=== PATIENT | male | born 1945 | race Caucasian/White ===

== ENCOUNTER → 2018-01-29 11:55 | Outpatient (CLI) | payer MEDICARE, OTHER, SELFPAY ==
--- NOTE | 2018-01-29 | DI.US.S_ITS ---
PROCEDURE: US ABD AORTA ANEURYSM SCREEN INDICATIONS: SCREENING TECHNIQUE: Real time scanning was performed of the aorta and iliac arteries, with image documentation. COMPARISON: None. FINDINGS: Aorta: Proximal aortic not well-seen. Mid-aorta measures 1.8 cm. Distal aortic diameter is 1.6 cm. Iliac arteries: Right common iliac artery measures 1.3 cm. Left common iliac artery measures 1.4 cm. IMPRESSION: No abdominal aortic or proximal common iliac artery aneurysm. Dictated by: Neto MACIAS Interpreted: Rosanna Ortiz MD on 01/29/2018 at 13:05 Approved by: Rosanna Ortiz M.D. on 01/29/2018 at 15:10
== END ==
PROVIDERS: PCP Family Medicine; Visit Provider Family Medicine
DX: Z13.6 Encounter for screening for cardiovascular disorders (principal)
CPT/HCPCS: 76706

== ENCOUNTER → 2022-01-25 08:42 | Outpatient (CLI) | payer MEDICARE, OTHER, SELFPAY ==
[2022-01-25 09:40] LABS: Add Manual Diff / Slide Review NO; Basophils Absolute Auto 0 /uL (0-100); Basophils Percent Auto 0.9 % (0-2); Eosinophils Absolute Auto 100 /uL (0-450); Eosinophils Percent Auto 1.9 % (2-4); Hematocrit 43.6 % (41-53); Hemoglobin 14.6 g/dL (13.5-17.5); Lymphocytes Absolute Auto 1300 /uL (1100-4500); Lymphocytes Percent Auto 25.3 % (25-40); Mean Corpuscular HGB Conc 33.5 % (30-36); Mean Corpuscular Hemoglobin 30.6 PG (26-34); Mean Corpuscular Volume 91.3 fL (80-100); Monocytes Absolute Auto 400 /uL (0-900); Monocytes Percent Auto 7.7 % (3-14); Neutrophils Absolute Auto 3200 /uL (1500-7000); Neutrophils Percent Auto 64.2 % (50-75); Platelet Count 230 X10^3/uL (150-400); Red Blood Cell Count 4.77 X10^6/uL (4.5-5.9); Red Cell Distribution Width 14.1 % (11.6-14.8)
[2022-01-25 10:27] LABS: Alanine Aminotransferase 28 IU/L (<50); Albumin Globulin Ratio 1.5 (1.0-2.8); Alkaline Phosphatase 43 U/L (38-126); Aspartate Aminotransferase 28 IU/L (17-59); BUN Creatinine Ratio 19.6 (6-22); Bilirubin Total 0.7 mg/dL (0.2-1.3); Blood Urea Nitrogen 19 mg/dL (9-20); Calcium 8.9 mg/dL (8.4-10.2); Carbon Dioxide 31 mmol/L (22-32); Chloride 103 mmol/L (98-107); Cholesterol 187 mg/dL (140-199); Estimated Glomerular Filt Rate > 60 mL/min (>60); Globulin 2.7 g/dL (1.7-4.1); Glucose 114 mg/dL (80-110); HDL Cholesterol 68 mg/dL (40-60); HEMOLYSIS < 15 (0-50); LDL Cholesterol Calculated 96 mg/dL (<100); Potassium 4.4 mmol/L (3.4-5.1); Sodium 139 mmol/L (137-145); Total Protein 6.7 g/dL (6.3-8.2); Triglycerides 115 mg/dL (35-150)
[2022-01-26 10:00] LABS: Creatinine Urine Random 141.4 mg/dL
[2022-01-26 10:05] LABS: Microalbumi Creatinin Ratio Ur 4.9 ug/mg CR (<30); Microalbumin Urine Random 0.7 mg/dL (0-1.6)
== END ==
PROVIDERS: PCP Family Medicine; Referring Provider Family Medicine; Visit Provider Family Medicine
DX: E78.5 Hyperlipidemia, unspecified (principal); I72.4 Aneurysm of artery of lower extremity; R03.0 Elevated blood-pressure reading, without diagnosis of hypertension; R19.09 Other intra-abdominal and pelvic swelling, mass and lump
CPT/HCPCS: 36415; 80053; 80061; 82043; 82570; 84443; 85025

== ENCOUNTER → 2023-04-14 08:13 | Outpatient (CLI) | payer MEDICARE, OTHER, SELFPAY ==
[2023-04-14 09:00] LABS: Add Manual Diff / Slide Review NO; Basophils Absolute Auto 100 /uL (0-100); Basophils Percent Auto 1.1 % (0-2); Eosinophils Absolute Auto 100 /uL (0-450); Eosinophils Percent Auto 2.9 % (2-4); Hematocrit 42.4 % (41-53); Hemoglobin 14.3 g/dL (13.5-17.5); Lymphocytes Absolute Auto 1600 /uL (1100-4500); Lymphocytes Percent Auto 34.6 % (25-40); Mean Corpuscular HGB Conc 33.8 % (30-36); Mean Corpuscular Hemoglobin 30.7 PG (26-34); Mean Corpuscular Volume 90.9 fL (80-100); Monocytes Absolute Auto 400 /uL (0-900); Monocytes Percent Auto 9.3 % (3-14); Neutrophils Absolute Auto 2400 /uL (1500-7000); Neutrophils Percent Auto 52.1 % (50-75); Platelet Count 196 X10^3/uL (150-400); Red Blood Cell Count 4.66 X10^6/uL (4.5-5.9); Red Cell Distribution Width 14.7 % (11.6-14.8); White Blood Cell Count 4.6 X10^3/uL (4.5-11.0)
[2023-04-14 09:11] LABS: Alanine Aminotransferase 26 IU/L (<50); Albumin 3.8 g/dL (3.5-5.0); Albumin Globulin Ratio 1.4 (1.0-2.8); Alkaline Phosphatase 84 U/L (38-126); Aspartate Aminotransferase 26 IU/L (17-59); BUN Creatinine Ratio 16.7 (6-22); Bilirubin Total 0.7 mg/dL (0.2-1.3); Blood Urea Nitrogen 17 mg/dL (9-20); Calcium 8.9 mg/dL (8.4-10.2); Carbon Dioxide 31 mmol/L (22-32); Chloride 101 mmol/L (98-107); Cholesterol 189 mg/dL (140-199); Estimated Glomerular Filt Rate > 60 mL/min (>60); Globulin 2.7 g/dL (1.7-4.1); Glucose 115 mg/dL (80-110); HDL Cholesterol 80 mg/dL (40-60); HEMOLYSIS < 15 (0-50); LDL Cholesterol Calculated 92 mg/dL (<100); Potassium 4.2 mmol/L (3.4-5.1); Sodium 136 mmol/L (137-145); Total Protein 6.5 g/dL (6.3-8.2); Triglycerides 85 mg/dL (35-150)
[2023-04-14 10:17] LABS: Prostate Specific Antigen Scrn 252 ng/mL (0.1-4.0)
== END ==
PROVIDERS: PCP Family Medicine; Referring Provider Family Medicine; Visit Provider Family Medicine
DX: E78.5 Hyperlipidemia, unspecified (principal); Z12.5 Encounter for screening for malignant neoplasm of prostate; I72.4 Aneurysm of artery of lower extremity; R03.0 Elevated blood-pressure reading, without diagnosis of hypertension; R19.09 Other intra-abdominal and pelvic swelling, mass and lump
CPT/HCPCS: 36415; 80053; 80061; 84443; 85025; G0103

== ENCOUNTER → 2023-04-15 12:51 | Outpatient (CLI) | payer MEDICARE, OTHER, SELFPAY ==
--- NOTE | 2023-04-15 12:53 | DI.CT.S_ITS ---
PROCEDURE: CT PELVIS W CON INDICATIONS: right groin mass TECHNIQUE: After the administration of intravenous contrast, 5 mm thick sections acquired from the iliac crests to the symphysis. 5 mm coronal and sagittal reformats were acquired. For radiation dose reduction, the following was used: automated exposure control, adjustment of mA and/or kV according to patient size. COMPARISON: None. FINDINGS: Image quality: Good Lower abdomen: No bowel obstruction or pathologic ascites. Bladder: Unremarkable. Mildly trabeculated, which may be due to chronic obstruction. Reproductive organs: Right prostate mass with extramural extension measures about 3.7 x 3 centimeters. There may be seminal vesicle involvement. Extent of prostate disease is probably larger than suggested on CT, which is an insensitive modality. Rectum: Unremarkable Vessels and lymph nodes: Pelvic and retroperitoneal adenopathy, for example aortocaval node on axial image 3 measures 1.2 centimeters on short axis. Right common iliac node (2/13) measures 2.3 centimeters in short axis. No aneurysmal vessel identified. There also abnormal left pelvic lymph nodes. Pelvic wall: Small bilateral fat containing inguinal hernias, larger on the right, with neck measuring about 1.4 centimeters, containing a small bowel loop, without upstream obstruction. Bones: Small sclerotic bone lesions are present, for example in the left iliac (2/10) and right iliac (2/7). IMPRESSION: The right groin mass probably corresponds to a right inguinal hernia containing fat in the small bowel loops, without upstream obstruction. There is also a smaller left inguinal hernia. Prostate cancer with archie metastases seen in the pelvis and retroperitoneum and suspected bone metastases. Consider dedicated follow-up oncologic imaging. Dictated by: Rios Maguire M.D. on 04/15/2023 at 15:44 Approved by: Rios Maguire M.D. on 04/15/2023 at 15:50
== END ==
PROVIDERS: PCP Family Medicine; Referring Provider Family Medicine; Visit Provider Family Medicine
DX: C61 Malignant neoplasm of prostate (principal); C77.5 Secondary and unspecified malignant neoplasm of intrapelvic lymph nodes; M89.9 Disorder of bone, unspecified; K40.20 Bilateral inguinal hernia, without obstruction or gangrene, not specified as recurrent; R19.09 Other intra-abdominal and pelvic swelling, mass and lump
CPT/HCPCS: 72193; Q9967

== ENCOUNTER → 2023-04-25 10:39 | Outpatient (CLI) | payer MEDICARE, OTHER, SELFPAY ==
--- NOTE | 2023-04-25 10:40 | DI.NM.S_ITS ---
PROCEDURE: NM BONE SCAN WHOLE BODY RADIOPHARMACEUTICAL: 21.0 mCi Tc-99m MDP IV. INDICATIONS: CANCER TECHNIQUE: Delayed whole-body scintigrams were obtained approximately 3-4 hours after intravenous injection of radiotracer. Anterior and posterior views were acquired from vertex to feet. Additional left and right oblique views of the pelvis were obtained. COMPARISON: [facility], CT, CT PELVIS W CON, 04/15/2023, 13:06. [facility], CT, CT CHEST ABDOMEN W CON, 04/25/2023, 11:59. FINDINGS: There are multiple foci of abnormal uptake involving the cervical spine (T6 (and thoracic spine (T4, T8, T9, T10 T11 and T12), sacrum, sternum, iliac bones bilat 3, left pubis, the 1st, 5th, 7th, 8th and 12 ribs, distal right clavicle, right scapula, and left femur, consistent with osseous metastases. IMPRESSION: Multiple foci of osseous metastatic disease. Dictated by: Pierre Sethi M.D. on 04/25/2023 at 15:58 Approved by: Pierre Sethi M.D. on 04/25/2023 at 16:10
--- NOTE | 2023-04-25 10:40 | DI.CT.S_ITS ---
PROCEDURE: CT CHEST ABDOMEN W CON INDICATIONS: cancer TECHNIQUE: After the administration of oral contrast and intravenous contrast, 5 mm thick sections acquired from the lung apices to the iliac crests. 5 mm coronal and sagittal reformats were performed, with additional 7 mm coronal MIP reformats through the lungs. For radiation dose reduction, the following was used: automated exposure control, adjustment of mA and/or kV according to patient size. COMPARISON: [facility], CT, CT FIGUEROA, 02/05/2018, 13:06. [facility], CT, CT PELVIS W CON, 04/15/2023, 13:06. FINDINGS: Image quality: Excellent. CHEST: Lungs and pleura: No mass or significant pulmonary nodules. No acute air space opacities. No pleural effusions or pneumothorax. Central and peripheral airways are patent and normal in caliber. Mediastinum: Heart size is normal. No pericardial effusion. Small mediastinal lymph nodes, (4/37). Left supraclavicular node measuring 1.1 cm, (2/10). Small retrocrural nodes. Thoracic aorta and central pulmonary arteries are normal in size. Esophagus is normal in caliber. No hiatal hernia. Chest wall: No axillary or supraclavicular adenopathy by size criteria. Thyroid gland is unremarkable. ABDOMEN: Solid organs: Liver is normal in size and enhancement. Gallbladder is unremarkable. Biliary system is non dilated. Pancreas enhances normally. Spleen is normal in size and enhancement. No adrenal nodules. Kidneys are normal in size and enhancement, without hydronephrosis. Peritoneum and bowel: Bowel loops demonstrate normal wall thickness and caliber. No free fluid or air. Nodes and vessels: Retroperitoneal adenopathy. For example: Left periaortic the level of the kidneys measuring 1.7 cm, (2/75). Intra-aortic caval node measuring 1.4 cm, (2/81). Aorta and inferior vena cava are normal in caliber. Circumferential calcified atherosclerotic plaque. Bones: Several subtle sclerotic foci. For example: T4, (5/42). T8, (5/43). T11, 5/43). T12, (5/46). No vertebral body compression fractures. Schmorl's nodes. Miscellaneous: No ventral hernias. IMPRESSION: 1. Enlarged left supraclavicular node concerning for metastatic disease. Suspicious small mediastinal lymph nodes. 2. Metastatic retroperitoneal adenopathy. 3. Multiple sclerotic osseous foci most consistent with metastatic disease. Please see pending bone scan. Please see separately dictated recent CT pelvis. Dictated by: Ankit De La Paz M.D. on 04/25/2023 at 13:58 Approved by: Ankit De La Paz M.D. on 04/25/2023 at 14:12
== END ==
PROVIDERS: PCP Family Medicine; Referring Provider Specialist; Visit Provider Specialist
DX: C61 Malignant neoplasm of prostate (principal); C79.51 Secondary malignant neoplasm of bone; C77.2 Secondary and unspecified malignant neoplasm of intra-abdominal lymph nodes; R59.0 Localized enlarged lymph nodes
CPT/HCPCS: 71260; 74160; 78306; A9503; Q9967

== ENCOUNTER → 2023-04-28 14:43 | Outpatient (CLI) | payer MEDICARE, OTHER, SELFPAY ==
--- NOTE | 2023-04-28 | DI.RAD.S_ITS ---
Bone Density Report Name: FAY RENTERIA Age: 78 Sex: Male Ethnicity: White Date of : 1945 Indication: screening for osteoporosis; Referring Provider: GAL ERICKSON Study: Bone densitometry was performed. Exam Date: April 28, 2023 Accession number: [id number] Bone Density: Region BMD T-score Z-score Classification AP Spine(L1, L2) 1.477 4.5 5.0 Normal Femoral Neck (Left) 0.833 -0.1 0.8 Normal Total Hip (Left) 1.054 0.9 1.2 Normal Femoral Neck (Right) 0.824 -0.2 0.7 Normal Total Hip (Right) 1.013 0.6 0.9 Normal Total Hip Mean 1.033 0.8 1.1 Normal World Health Organization criteria for BMD impression classify patients as: Normal (T-score at or above -1.0), Osteopenia (T-score between -1.0 and -2.5), or Osteoporosis (T-score at or below -2.5). 10-year Fracture Risk: FRAX not reported because: All T-scores for Spine Total, Hip Total, Femoral Neck at or above -1.0 Impression: The patient has normal bone mass. Discussion: BONE DENSITY IS ABOVE THE MINIMUM DESIRABLE LEVEL AT ALL SKELETAL SITES TESTED. This patient's bone mineral density is above the minimum desirable level (T-score -1.0 or better) at all sites measured. The patient should follow a healthful lifestyle (good nutrition with adequate calcium and vitamin D, and appropriate weight-bearing exercise). Follow-Up: Consider repeating this study in 5 years or sooner if there is some new clinical indication. Reported by: WILSON ZENG M.D. on 04/28/2023 3:13:00 PM.
== END ==
PROVIDERS: PCP Family Medicine; Referring Provider Specialist; Visit Provider Specialist
DX: Z13.820 Encounter for screening for osteoporosis (principal); C61 Malignant neoplasm of prostate; M06.9 Rheumatoid arthritis, unspecified
CPT/HCPCS: 77080

== ENCOUNTER → 2023-06-05 07:49 | Outpatient (CLI) | payer MEDICARE, OTHER, SELFPAY ==
[2023-06-05 09:10] LABS: Prostate Specific Antigen 4.86 ng/mL (0.10-4.00)
== END ==
PROVIDERS: PCP Family Medicine; Referring Provider Specialist; Visit Provider Specialist
DX: R97.20 Elevated prostate specific antigen [PSA] (principal)
CPT/HCPCS: 36415; 84153

== ENCOUNTER → 2023-07-11 07:31 | Outpatient (CLI) | payer MEDICARE, OTHER, SELFPAY ==
[2023-07-11 08:42] LABS: Add Manual Diff / Slide Review NO; Basophils Absolute Auto 100 /uL (0-100); Eosinophils Absolute Auto 100 /uL (0-450); Eosinophils Percent Auto 2.5 % (2-4); Hematocrit 39.8 % (41-53); Hemoglobin 13.5 g/dL (13.5-17.5); Lymphocytes Absolute Auto 2400 /uL (1100-4500); Mean Corpuscular HGB Conc 33.9 % (30-36); Mean Corpuscular Hemoglobin 30.1 PG (26-34); Mean Corpuscular Volume 88.7 fL (80-100); Monocytes Absolute Auto 400 /uL (0-900); Monocytes Percent Auto 8.3 % (3-14); Neutrophils Absolute Auto 2300 /uL (1500-7000); Neutrophils Percent Auto 43.2 % (50-75); Platelet Count 174 X10^3/uL (150-400); Red Blood Cell Count 4.48 X10^6/uL (4.5-5.9); White Blood Cell Count 5.3 X10^3/uL (4.5-11.0)
[2023-07-11 08:51] LABS: Alanine Aminotransferase 29 IU/L (<50); Albumin 3.8 g/dL (3.5-5.0); Albumin Globulin Ratio 1.3 (1.0-2.8); Alkaline Phosphatase 44 U/L (38-126); Aspartate Aminotransferase 26 IU/L (17-59); Bilirubin Total 0.6 mg/dL (0.2-1.3); Blood Urea Nitrogen 20 mg/dL (9-20); Calcium 9.5 mg/dL (8.4-10.2); Carbon Dioxide 30 mmol/L (22-32); Chloride 101 mmol/L (98-107); Estimated Glomerular Filt Rate > 60 mL/min (>60); Globulin 2.9 g/dL (1.7-4.1); Glucose 99 mg/dL (80-110); HEMOLYSIS < 15 (0-50); Sodium 139 mmol/L (137-145); Total Protein 6.7 g/dL (6.3-8.2)
== END ==
PROVIDERS: PCP Family Medicine; Referring Provider Family Medicine; Visit Provider Family Medicine
DX: E78.5 Hyperlipidemia, unspecified (principal); C61 Malignant neoplasm of prostate; C79.51 Secondary malignant neoplasm of bone; R97.20 Elevated prostate specific antigen [PSA]; Z00.00 Encounter for general adult medical examination without abnormal findings
CPT/HCPCS: 36415; 80053; 85025

== ENCOUNTER → 2023-09-01 12:18 | Outpatient (CLI) | payer MEDICARE, OTHER, SELFPAY ==
[2023-09-01 14:45] LABS: Add Manual Diff / Slide Review NO; Basophils Absolute Auto 100 /uL (0-100); Basophils Percent Auto 1.2 % (0-2); Eosinophils Absolute Auto 400 /uL (0-450); Eosinophils Percent Auto 6.4 % (2-4); Hematocrit 39.2 % (41-53); Hemoglobin 13.3 g/dL (13.5-17.5); Lymphocytes Absolute Auto 1500 /uL (1100-4500); Mean Corpuscular HGB Conc 33.8 % (30-36); Mean Corpuscular Volume 91.7 fL (80-100); Monocytes Absolute Auto 400 /uL (0-900); Monocytes Percent Auto 7.6 % (3-14); Neutrophils Absolute Auto 3400 /uL (1500-7000); Neutrophils Percent Auto 58.8 % (50-75); Platelet Count 175 X10^3/uL (150-400); Red Blood Cell Count 4.28 X10^6/uL (4.5-5.9); Red Cell Distribution Width 14.4 % (11.6-14.8); White Blood Cell Count 5.7 X10^3/uL (4.5-11.0)
[2023-09-01 16:55] LABS: HEMOLYSIS < 15 (0-50)
[2023-09-01 17:03] LABS: Alanine Aminotransferase 66 IU/L (<50); Albumin 3.7 g/dL (3.5-5.0); Albumin Globulin Ratio 1.5 (1.0-2.8); Alkaline Phosphatase 57 U/L (38-126); Aspartate Aminotransferase 46 IU/L (17-59); Bilirubin Total 0.7 mg/dL (0.2-1.3); Blood Urea Nitrogen 17 mg/dL (9-20); Calcium 9.1 mg/dL (8.4-10.2); Carbon Dioxide 29 mmol/L (22-32); Chloride 102 mmol/L (98-107); Estimated Glomerular Filt Rate > 60 mL/min (>60); Globulin 2.5 g/dL (1.7-4.1); Glucose 97 mg/dL (80-110); Potassium 4.3 mmol/L (3.4-5.1); Sodium 137 mmol/L (137-145); Total Protein 6.2 g/dL (6.3-8.2)
[2023-09-01 21:19] LABS: Prostate Specific Antigen 0.236 ng/mL (0.10-4.00)
== END ==
PROVIDERS: PCP Family Medicine; Referring Provider Internal Medicine Medical Oncology; Visit Provider Internal Medicine Medical Oncology
DX: C61 Malignant neoplasm of prostate (principal)
CPT/HCPCS: 36415; 80053; 84153; 85025

== ENCOUNTER → 2024-01-07 11:26 | Outpatient (CLI) | payer MEDICARE, OTHER, SELFPAY ==
[2024-01-07 12:17] LABS: Add Manual Diff / Slide Review NO; Basophils Absolute Auto 0 /uL (0-100); Basophils Percent Auto 0.7 % (0-2); Eosinophils Absolute Auto 100 /uL (0-450); Hematocrit 40.7 % (41-53); Hemoglobin 13.7 g/dL (13.5-17.5); Lymphocytes Absolute Auto 1100 /uL (1100-4500); Lymphocytes Percent Auto 16.9 % (25-40); Mean Corpuscular HGB Conc 33.7 % (30-36); Mean Corpuscular Volume 91.8 fL (80-100); Monocytes Absolute Auto 300 /uL (0-900); Monocytes Percent Auto 4.6 % (3-14); Neutrophils Absolute Auto 5000 /uL (1500-7000); Neutrophils Percent Auto 76.8 % (50-75); Platelet Count 163 X10^3/uL (150-400); Red Blood Cell Count 4.44 X10^6/uL (4.5-5.9); Red Cell Distribution Width 14.2 % (11.6-14.8); White Blood Cell Count 6.5 X10^3/uL (4.5-11.0)
[2024-01-07 12:42] LABS: Hemoglobin A1C% w Est Avg Glu 6.2 % (4.0-6.0)
[2024-01-07 12:45] LABS: Alanine Aminotransferase 24 IU/L (<50); Albumin 3.8 g/dL (3.5-5.0); Albumin Globulin Ratio 1.6 (1.0-2.8); Alkaline Phosphatase 56 U/L (38-126); Aspartate Aminotransferase 26 IU/L (17-59); BUN Creatinine Ratio 29.3 (6-22); Bilirubin Total 0.8 mg/dL (0.2-1.3); Blood Urea Nitrogen 24 mg/dL (9-20); Calcium 9.4 mg/dL (8.4-10.2); Carbon Dioxide 30 mmol/L (22-32); Chloride 104 mmol/L (98-107); Cholesterol 187 mg/dL (140-199); Estimated Glomerular Filt Rate > 60 mL/min (>60); Globulin 2.4 g/dL (1.7-4.1); Glucose 110 mg/dL (80-110); HDL Cholesterol 70 mg/dL (40-60); HEMOLYSIS < 15 (0-50); LDL Cholesterol Calculated 67 mg/dL (<100); Potassium 4.5 mmol/L (3.4-5.1); Sodium 139 mmol/L (137-145); Total Protein 6.2 g/dL (6.3-8.2); Triglycerides 252 mg/dL (35-150)
[2024-01-07 16:24] LABS: Creatinine Urine Random 117.1 mg/dL
[2024-01-07 16:35] LABS: Microalbumin Urine Random < 0.6 mg/dL (0-1.6)
== END ==
LOC: LAB 11:26
PROVIDERS: PCP Family Medicine; Referring Provider Family Medicine; Visit Provider Family Medicine
DX: E78.5 Hyperlipidemia, unspecified (principal); C61 Malignant neoplasm of prostate; C77.5 Secondary and unspecified malignant neoplasm of intrapelvic lymph nodes; C76.51 Malignant neoplasm of right lower limb; R03.0 Elevated blood-pressure reading, without diagnosis of hypertension
CPT/HCPCS: 36415; 80053; 80061; 82043; 82570; 83036; 84443; 85025

== ENCOUNTER 2024-05-12 11:25 | Emergency (ER) | payer MEDICARE, OTHER, SELFPAY ==
[2024-05-12] VITALS (14 sets, daily range): BP systolic 172–199; BP diastolic 80–96; PULSE 51–69; RESP 14–17; TEMP 36.2; O2SAT 98–100; BMI 25.4
--- NOTE | 2024-05-12 12:02 | ED_ITS ---
HPI - General Adult General Chief complaint: Urogenital-Male Stated complaint: kidney pain, poss kidney infection, sent by pcp Time Seen by Provider: 05/12/24 12:00 Source: patient History of Present Illness HPI narrative: 79-year-old gentleman with a history of hypertension, hyperlipidemia, prostate cancer metastatic, on abiraterone presents complaining of 4 days of low back/flank pain. He states 5 days ago he noticed some urinary frequency because of this he has dramatically cut down on oral intake including liquids. 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 It has responded to Alleve and icy hot. He notes that he is having difficulty going up and down stairs because he feels that his legs are weaker not necessarily because he is having increased pain. He notes that he has not had a bowel movement for 2 days and the last was fairly constipated. This correlates with the self-imposed limits on fluids and food due to the urinary frequency. He describes some mild nausea, no overt vomiting, no chest pain or palpitations Related Data Home Medications Medication Instructions Recorded Confirmed Lactobacillus acidophilus 2 tab PO QDAY ##0 04/15/17 03/16/24 [RED YEAST DYE] 600 mg PO QDAY ##0 04/15/17 03/16/24 [UBIQUINOL] 1 cap PO QDAY ##0 04/15/17 03/16/24 multivitamin (Multiple Vitamins 1 tab PO QDAY ##0 04/15/17 03/16/24 tablet) abiraterone 250 mg tablet 1,000 mg PO DAILY 12/30/23 03/16/24 prednisone 5 mg tablet 5 mg PO DAILY 12/30/23 03/16/24 leuprolide 3.75 mg intramuscular 3.75 mg IM .Q3mos 03/16/24 03/16/24 syringe kit (Lupron Depot) Previous Rx's Medication Instructions Recorded losartan 100 mg tablet 100 mg PO DAILY #90 tabs 12/30/23 Allergies Allergy/AdvReac Type Severity Reaction Status Date / Time No Known Drug Allergies Allergy Verified 05/12/24 12:09 Review of Systems Review of Systems Narrative: Pertinent positive and negative findings as per HPI Patient History Medical History Malignant neoplasm of prostate metastatic to intrapelvic lymph node Prostate cancer metastatic to multiple sites Hx of radiation therapy History of skin cancer Bilateral inguinal hernia Hyperlipidemia Surgical History H/O vasectomy Social History marital status: number of children: 3 Smoking Status: Former smoker Tobacco: How many years used: 15 alcohol intake: current Type(s) of exercise: walking frequency: daily Smoking Status: Former smoker tobacco type: cigarettes alcohol intake frequency: 0-2 drinks per day Substance Use Type: does not use Exam Initial Vital Signs Initial Vital Signs: Vital Signs Temperature 97.2 F L 05/12/24 11:46 Pulse Rate 60 05/12/24 11:46 Respiratory Rate 17 05/12/24 11:46 Blood Pressure 197/92 H 05/12/24 11:46 Pulse Oximetry 98 05/12/24 11:46 Oxygen Delivery Method Room Air 05/12/24 11:46 General: Healthy appearing, in no acute distress. Able to give a complete and coherent history. Well-nourished well-developed HEENT: Moist mucous membranes, normal sclera with reactive pupils, Respiratory: Lungs are clear to auscultation, no wheezing no rales no rhonchi. Full and symmetrical air movement Cardiac: Regular rate and rhythm no murmurs no bruits Abdomen: Soft, nontender, good bowel tones, mild left flank pain. No skin changes. Spine and pelvis: No midline tenderness, there is some tenderness just above the posterior iliac crest on the left side Neurologic: Grossly neurologically intact with no obvious asymmetries or abnormalities Extremities: No trauma, well perfused Psych: Cooperative, appropriate insight and affect Course Orders Ordered: ED Orders 05/12/24 12:23 CT abdomen pelvis w con Stat 05/12/24 12:37 Complete Blood Count AUTO DIFF Stat Comprehensive Metabolic Panel Stat Discontinued Medications Sodium Chloride (Normal Saline 0.9%) 1,000 mls @ 1,000 mls/hr IV BOLUS ONE Stop: 05/12/24 13:22 Last Infusion: 05/12/24 13:20 Dose: Infused Documented By: Admin: 05/12/24 12:44 Dose: 1,000 mls/hr Documented By: ARMAND Vital Signs Vital signs: Vital Signs - 8 hr 05/12/24 11:46 05/12/24 12:40 05/12/24 12:41 Temperature 97.2 F L Pulse Rate 60 60 60 Respiratory Rate 17 Blood Pressure 197/92 H Pulse Oximetry 98 100 99 Oxygen Delivery Method Room Air 05/12/24 12:41 05/12/24 12:45 05/12/24 12:45 Temperature Pulse Rate 57 L Respiratory Rate Blood Pressure 199/84 H 175/80 H Pulse Oximetry 100 Oxygen Delivery Method 05/12/24 13:00 05/12/24 13:00 05/12/24 13:30 Temperature Pulse Rate 55 L 69 Respiratory Rate Blood Pressure 172/83 H Pulse Oximetry 99 99 Oxygen Delivery Method 05/12/24 13:30 05/12/24 14:00 05/12/24 14:30 Temperature Pulse Rate 51 L 56 L Respiratory Rate Blood Pressure 173/96 H Pulse Oximetry 100 99 Oxygen Delivery Method Medical Decision Making Lab Data 05/12/24 12:37 05/12/24 12:37 Labs: Lab Results 05/12/24 Range/Units 12:37 WBC 6.4 (4.5-11.0) X10^3/uL RBC 4.37 L (4.5-5.9) X10^6/uL Hgb 13.2 L (13.5-17.5) g/dL Hct 39.8 L (41-53) % MCV 91.2 (80-100) fL MCH 30.2 (26-34) PG MCHC 33.1 (30-36) % RDW 14.1 (11.6-14.8) % Plt Count 179 (150-400) X10^3/uL Neut % (Auto) 61.3 (50-75) % Lymph % (Auto) 26.1 (25-40) % [place] % (Auto) 8.8 (3-14) % Eos % (Auto) 2.8 (2-4) % Baso % (Auto) 1.0 (0-2) % Neut # (Auto) 3900 (0312-6703) /uL Lymph # (Auto) 1700 (9848-7819) /uL [place] # (Auto) 600 (0-900) /uL Eos # (Auto) 200 (0-450) /uL Baso # (Auto) 100 (0-100) /uL Sodium 137 (137-145) mmol/L Potassium 4.0 (3.4-5.1) mmol/L Chloride 105 (98-107) mmol/L Carbon Dioxide 27 (22-32) mmol/L BUN 25 H (9-20) mg/dL Creatinine 0.88 (0.66-1.25) mg/dL Estimated GFR > 60 (>60) mL/min BUN/Creatinine Ratio 28.4 H (6-22) Glucose 102 (80-110) mg/dL Calcium 9.2 (8.4-10.2) mg/dL Total Bilirubin 0.7 (0.2-1.3) mg/dL AST 23 (17-59) IU/L ALT 18 (<50) IU/L Alkaline Phosphatase 58 (38-126) U/L Total Protein 6.3 (6.3-8.2) g/dL Albumin 3.7 (3.5-5.0) g/dL Globulin 2.6 (1.7-4.1) g/dL Albumin/Globulin Ratio 1.4 (1.0-2.8) Urine Dip Bedside Urine Glucose Negative Bedside Urine Bilirubin - Negative Bedside Urine Ketone - Negative Urine Specific [place] 1.030 Bedside Urine Occult Blood - Negative Bedside Urine pH 6.0 Bedside Urine Protein - Negative Bedside Urine Urobilinogen - Negative Bedside Urine Nitrite - Negative Bedside Urine Leukocytes - Negative Esterase Point of care testing: Urine Dip Bedside Urine Glucose Negative Bedside Urine Bilirubin - Negative Bedside Urine Ketone - Negative Urine Specific [place] 1.030 Bedside Urine Occult Blood - Negative Bedside Urine pH 6.0 Bedside Urine Protein - Negative Bedside Urine Urobilinogen - Negative Bedside Urine Nitrite - Negative Bedside Urine Leukocytes - Negative Esterase Imaging Data CT scan - abdomen/pelvis: Radiologist's Impression: PROCEDURE: CT ABDOMEN PELVIS W CON INDICATIONS: L flank/post iliac crest/lumbar pain TECHNIQUE: After the administration of intravenous contrast, axial sections acquired from the lung bases to the pubic symphysis. Coronal and sagittal reformats were performed. For radiation dose reduction, the following was used: automated exposure control, adjustment of mA and/or kV according to patient size. COMPARISON: None. FINDINGS: Image quality: Diagnostic. Lower Chest: Annular calcification of mitral valve, with cardiomegaly. ABDOMEN: Liver: No solid mass. Gallbladder: Gallbladder sludge versus small stones. No wall thickening or pericholecystic edema to suggest acute cholecystitis. Biliary ducts: No biliary dilation. Pancreas: No ductal dilation. Spleen: Size is within normal limits. Adrenal Glands: No adrenal nodules. Kidneys and Ureters: No hydronephrosis. No solid mass. No complex renal cystic lesion which requires follow up. Stomach and Bowel: Normal colonic caliber, without significant wall thickening. Normal appendix. Peritoneum: No abnormal intraperitoneal fluid. No free air. Ventral Wall: No significant ventral hernia. Abdominal Nodes: No retroperitoneal or mesenteric adenopathy by size criteria. Vessels: Aorta and inferior vena cava are normal in size. PELVIS: Pelvic Organs: Calcifications at the base of the penis. Bladder: Multiple punctate bladder calcifications are present. Pelvic Nodes: No enlarged lymph nodes. Miscellaneous: Small left inguinal hernia containing fat. Bones: No aggressive osseous abnormality. Degenerative disc disease of the lumbar spine. Grade 1 anterolisthesis of L4 on L5 secondary to facet arthrosis. IMPRESSION: Multiple punctate bladder stones. Calcifications at the base of the penis, which may indicate Peyronie's disease. Dictated by: Hunter Ro M.D. on 05/12/2024 at 14:55 MDM Narrative Medical decision making narrative: CC: Left flank/low back pain Complicating co-morbidities: Recent diagnosis of metastatic prostate cancer, hypertension Data collected from: patient Medical records reviewed: Primary care notes from December are reviewed Differential considered: Spontaneous compression fracture, pyelonephritis, bladder infection, complication of metastatic cancer, constipation Exam documented above, pertinent findings include: Patient has some tenderness over the left lower flank/posterior iliac crest area. He does not have any musculoskeletal spasm and no significant abdominal pain. Lab Test results independently reviewed as above. Pertinent findings: CBC is unremarkable Metabolic panel is reassuring Urine dip shows no abnormalities Imaging studies independently reviewed: CT scan of the abdomen and pelvis does not show any abnormalities that would explain his pain. Specifically no diverticulitis, bowel obstruction, new compression fractures, metastatic lesions to bone, no kidney stone, hydronephrosis or renal abnormalities Treatments: Patient has been given a L of fluid Re-evaluations: Patient is feeling significantly better after an Alleve with some icy hot to the area Discussion: 79-year-old gentleman comes in with pain in his right lower back and flank. He has been on a boat recently noted some difficulty going up and down stairs that he felt was due to weakness. Once the pain has been controlled he has not noting this difficulty any longer. Workup is unremarkable with normal labs, CT scan does not show significant pathology intra-abdominally, no metastatic lesions to the bones, no new compression fractures or other fractures of concern. There was no evidence of kidney stone or hydronephrosis. I do not suspect epidural abscess or hematoma. I believe this is musculoskeletal pain and his body has responded beautifully to a single Alleve and icy hot. Recommended that he continue this. In can follow up with his primary care doctor and if pain persists he may need referral to physical therapy. If he continues to notice weakness in the lower extremities that does need to be further evaluated. There was no indication for additional imaging or workup today he is safe for discharge Discharge Plan Departure Patient Disposition: Home Clinical Impression: Low back pain Qualifiers: Chronicity: acute Back pain laterality: left Sciatica presence: without sciatica Qualified Code(s): M54.50 - Low back pain, unspecified Instructions: DI for Low Back Pain Activity Restrictions/Additional Instructions: Thank you for coming in today Your workup today was quite reassuring. Your lab work did not suggest acute infection, liver or kidney abnormalities The CT scan that we did did not show kidney stones, kidney infection, any diverticulitis and all of your internal organs looked appropriate. I did not see new compression fractures and I did NOT see new masses, tumors or bony invasion that we can see with prostate cancer. If you are noticing that you are still having weakness in your legs going up and downstairs over the next couple of days this will need to be further evaluated. Since the Alleve and icy hot has worked so well for you, please feel free to continue using these. If you find that you are getting worse or develop any new symptoms, please feel free to return to the emergency department for further evaluation. Prescriptions: No Action Lactobacillus acidophilus 1 EACH capsule 2 tab PO QDAY Qty: 0 [RED YEAST DYE] 600 mg PO QDAY Qty: 0 [UBIQUINOL] 1 cap PO QDAY Qty: 0 multivitamin [Multiple Vitamins] 1 EACH tablet 1 tab PO QDAY Qty: 0 abiraterone 250 mg tablet 1,000 mg PO DAILY prednisone 5 mg tablet 5 mg PO DAILY losartan 100 mg tablet 100 mg PO DAILY Qty: 90 3RF Lupron Depot 3.75 mg syringe kit 3.75 mg IM .Q3mos Referrals: Mt Ramos MD [Primary Care Provider] - Stand Alone Forms: Patient Portal/API
--- NOTE | 2024-05-12 12:23 | DI.CT.S_ITS ---
PROCEDURE: CT ABDOMEN PELVIS W CON INDICATIONS: L flank/post iliac crest/lumbar pain TECHNIQUE: After the administration of intravenous contrast, axial sections acquired from the lung bases to the pubic symphysis. Coronal and sagittal reformats were performed. For radiation dose reduction, the following was used: automated exposure control, adjustment of mA and/or kV according to patient size. COMPARISON: None. FINDINGS: Image quality: Diagnostic. Lower Chest: Annular calcification of mitral valve, with cardiomegaly. ABDOMEN: Liver: No solid mass. Gallbladder: Gallbladder sludge versus small stones. No wall thickening or pericholecystic edema to suggest acute cholecystitis. Biliary ducts: No biliary dilation. Pancreas: No ductal dilation. Spleen: Size is within normal limits. Adrenal Glands: No adrenal nodules. Kidneys and Ureters: No hydronephrosis. No solid mass. No complex renal cystic lesion which requires follow up. Stomach and Bowel: Normal colonic caliber, without significant wall thickening. Normal appendix. Peritoneum: No abnormal intraperitoneal fluid. No free air. Ventral Wall: No significant ventral hernia. Abdominal Nodes: No retroperitoneal or mesenteric adenopathy by size criteria. Vessels: Aorta and inferior vena cava are normal in size. PELVIS: Pelvic Organs: Calcifications at the base of the penis. Bladder: Multiple punctate bladder calcifications are present. Pelvic Nodes: No enlarged lymph nodes. Miscellaneous: Small left inguinal hernia containing fat. Bones: No aggressive osseous abnormality. Degenerative disc disease of the lumbar spine. Grade 1 anterolisthesis of L4 on L5 secondary to facet arthrosis. IMPRESSION: Multiple punctate bladder stones. Calcifications at the base of the penis, which may indicate Peyronie's disease. Dictated by: Hunter Ro M.D. on 05/12/2024 at 14:55 Approved by: Hunter Ro M.D. on 05/12/2024 at 14:58
[2024-05-12] MEDS: SODIUM CHLORIDE 0.9% 1,000 ML 1000 ML IV (12:44)
[2024-05-12 12:51] LABS: Add Manual Diff / Slide Review NO; Basophils Absolute Auto 100 /uL (0-100); Eosinophils Absolute Auto 200 /uL (0-450); Eosinophils Percent Auto 2.8 % (2-4); Hematocrit 39.8 % (41-53); Hemoglobin 13.2 g/dL (13.5-17.5); Lymphocytes Absolute Auto 1700 /uL (1100-4500); Lymphocytes Percent Auto 26.1 % (25-40); Mean Corpuscular HGB Conc 33.1 % (30-36); Mean Corpuscular Hemoglobin 30.2 PG (26-34); Mean Corpuscular Volume 91.2 fL (80-100); Monocytes Absolute Auto 600 /uL (0-900); Monocytes Percent Auto 8.8 % (3-14); Neutrophils Absolute Auto 3900 /uL (1500-7000); Neutrophils Percent Auto 61.3 % (50-75); Platelet Count 179 X10^3/uL (150-400); Red Blood Cell Count 4.37 X10^6/uL (4.5-5.9); Red Cell Distribution Width 14.1 % (11.6-14.8); White Blood Cell Count 6.4 X10^3/uL (4.5-11.0)
[2024-05-12 13:00] LABS: Alanine Aminotransferase 18 IU/L (<50); Albumin 3.7 g/dL (3.5-5.0); Albumin Globulin Ratio 1.4 (1.0-2.8); Alkaline Phosphatase 58 U/L (38-126); Aspartate Aminotransferase 23 IU/L (17-59); BUN Creatinine Ratio 28.4 (6-22); Bilirubin Total 0.7 mg/dL (0.2-1.3); Blood Urea Nitrogen 25 mg/dL (9-20); Calcium 9.2 mg/dL (8.4-10.2); Carbon Dioxide 27 mmol/L (22-32); Chloride 105 mmol/L (98-107); Estimated Glomerular Filt Rate > 60 mL/min (>60); Globulin 2.6 g/dL (1.7-4.1); Glucose 102 mg/dL (80-110); HEMOLYSIS < 15 (0-50); Sodium 137 mmol/L (137-145); Total Protein 6.3 g/dL (6.3-8.2)
== END 2024-05-12 16:40 | disposition home or self-care (01) ==
PROVIDERS: Emergency Provider Emergency Medicine; PCP Family Medicine
DX: M54.50 Low back pain, unspecified (principal); R35.0 Frequency of micturition; R10.9 Unspecified abdominal pain; N21.0 Calculus in bladder
CPT/HCPCS: 36415; 74177; 80053; 81003; 85025; 96360; 99284; Q9967

== ENCOUNTER → 2024-05-26 16:30 | Outpatient (CLI) | payer MEDICARE, OTHER, SELFPAY ==
--- NOTE | 2024-05-26 16:31 | DI.RAD.S_ITS ---
PROCEDURE: XR KNEE LT 3V INDICATIONS: Left leg pain TECHNIQUE: 3 views of the knee were acquired. COMPARISON: None. FINDINGS: Bones: Normal mineralization. No acute fractures. Moderate medial compartment and mild patellofemoral compartment joint space loss with [id number] tricompartmental spur formation. No suspicious bone lesions. Soft tissues: No joint effusion. No suspicious soft tissue calcifications. IMPRESSION: No acute bony abnormality or significant effusion. Moderate tricompartment osteoarthritic changes. Dictated by: Nora Schultz M.D. on 05/27/2024 at 16:18 Approved by: Nora Schultz M.D. on 05/27/2024 at 16:21
--- NOTE | 2024-05-26 16:31 | DI.RAD.S_ITS ---
PROCEDURE: XR HIP W PEL IF DONE LT 2V INDICATIONS: Left leg pain TECHNIQUE: AP pelvis with lateral view(s) of the left hip(s). COMPARISON: None. FINDINGS: Bones: No fractures or dislocations. Pelvic ring appears intact. Mild bilateral hip joint degeneration including subcortical sclerosis and acetabular spur formation. The sacroiliac joints appear symmetric. No suspicious bony lesions. Soft tissues: The visualized bowel gas pattern is normal. No suspicious soft tissue calcifications. IMPRESSION: No acute osseous abnormality. Age-appropriate degenerative changes in the hip joints. Dictated by: Nora Schultz M.D. on 05/27/2024 at 16:16 Approved by: Nora Schultz M.D. on 05/27/2024 at 16:18
== END ==
PROVIDERS: PCP Family Medicine; Referring Provider Nurse Practitioner Family; Visit Provider Nurse Practitioner Family
DX: M79.605 Pain in left leg (principal)
CPT/HCPCS: 73502; 73562

== ENCOUNTER → 2024-06-08 16:47 | Outpatient (CLI) | payer MEDICARE, OTHER, SELFPAY ==
--- NOTE | 2024-06-08 16:48 | DI.RAD.S_ITS ---
PROCEDURE: XR HIP W PEL IF DONE LT 2V INDICATIONS: left hip pain after fall TECHNIQUE: AP pelvis with lateral view of the left hip. COMPARISON: [facility], CR, XR HIP W PEL IF DONE LT 2V, 05/26/2024, 15:58. FINDINGS: Bones: No acute fractures or dislocations. Pelvic ring appears intact. No suspicious bony lesions. Lruo-wp-hdjalgtr degenerative changes are seen in the hips, slightly worse on the left. Degenerative changes are seen in the included spine. Soft tissues: The visualized bowel gas pattern is normal. No suspicious soft tissue calcifications. IMPRESSION: No acute osseous abnormality. If symptoms persist or if there is continued clinical concern, cross-sectional imaging such as MRI or CT may be helpful for further evaluation. Approved by: Yair Wolff M.D. on 06/09/2024 at 14:12
--- NOTE | 2024-06-08 16:48 | DI.RAD.S_ITS ---
PROCEDURE: XR KNEE LT 3V INDICATIONS: left knee pain after fall TECHNIQUE: 3 views of the knee were acquired. COMPARISON: [facility], , XR KNEE LT 3V, 05/26/2024, 16:00. FINDINGS: Bones: No acute fractures or dislocations, although evaluation of the tibial plateau is compromised due to positioning result in overlapping osseous structures. No suspicious bony lesions. Tricompartmental joint space narrowing is seen, moderate to severe at the medial femorotibial compartment. Small suprapatellar enthesophyte. Soft tissues: Small joint effusion. No suspicious soft tissue calcifications. IMPRESSION: 1. No acute osseous abnormality identified given mildly suboptimal positioning. If there is continued clinical concern or persistent symptoms, repeat radiographs or cross-sectional imaging (e.g. CT, MRI) may be helpful for further evaluation. 2. Small joint effusion. 3. 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 Approved by: Yair Wolff M.D. on 06/09/2024 at 14:18
== END ==
PROVIDERS: PCP Family Medicine; Referring Provider Family Medicine; Visit Provider Family Medicine
DX: M17.12 Unilateral primary osteoarthritis, left knee (principal); M25.562 Pain in left knee; M25.462 Effusion, left knee; M25.552 Pain in left hip; G89.29 Other chronic pain
CPT/HCPCS: 73502; 73562

== ENCOUNTER → 2024-06-15 12:01 | Outpatient (CLI) | payer MEDICARE, OTHER, SELFPAY ==
--- NOTE | 2024-06-15 12:02 | DI.US.S_ITS ---
PROCEDURE: US SCROTUM INDICATIONS: TESTICULAR PAIN X 2 MONTHS, history of prostate cancer on chemotherapy treatment TECHNIQUE: Real-time scanning was performed of the scrotum and testicles, with image documentation. Color and pulse Doppler interrogation was performed of both testicles. COMPARISON: None. FINDINGS: Right: Testicle is mildly atrophic in size at 2.7 x 1.3 x 2.1 cm, and heterogeneous in echotexture. There is mild echogenic rim around the testicle, which is symmetric with the left. Epididymis is normal in overall size and morphology. No hydrocele or varicoceles. Overlying scrotal skin is normal in thickness. Left: Testicle is mildly atrophic in size at 2.4 x 1.2 x 2.1 cm, and heterogeneous in echotexture. There is mild echogenic rim around the testicle, which is symmetric with the right. Epididymis is normal in overall size and morphology. No hydrocele or varicoceles. Overlying scrotal skin is normal in thickness. Doppler: Color and pulse Doppler demonstrate normal and symmetric arterial flow in both testicles. IMPRESSION: No sonographic evidence of testicular torsion. Mild bilaterally atrophic testicles. Symmetric mild echogenic rim around the bilateral testes of uncertain clinical etiology, possibly post treatment changes. Approved by: Medina George M.D.,Ph.D. on 06/15/2024 at 16:43
== END ==
PROVIDERS: Family Provider Family Medicine; PCP Family Medicine; Referring Provider Family Medicine; Visit Provider Family Medicine
DX: N50.811 Right testicular pain (principal); N50.812 Left testicular pain; N50.0 Atrophy of testis
CPT/HCPCS: 76870; 93975

== ENCOUNTER 2024-09-10 14:30 | Outpatient (RCR) | payer MEDICARE, OTHER, SELFPAY ==
--- NOTE | 2024-06-30 15:50 | PT.OIE ---
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 Prostate cancer metastatic to multiple sites Past Surgical History (Last Reviewed 05/12/24 @ 12:17 by Veronica Mccray MD) H/O vasectomy Visit Care Team Role Provider Type Mt Ramos MD Attending Provider Physician Family Provider Primary Care Provider Referring Provider Specialty: Family Practice Address: [address] [place] [address] Email: [email or web address] Therapy Initial Evaluation PT-OP-A Visit Information Start: 06/30/24 11:30 Freq: Status: Active Protocol: Document 06/30/24 11:31 NM (Rec: 06/30/24 12:32 NM [id number]) Out-Patient Physical Therapy Visit Information Visit Information Visit Type Initial Evaluation Visit Note KX after 19 visits Visit Start Time 11:33 Visit Stop Time 12:15 Visit Number 1 Evaluation Information Evaluation Date 06/30/24 Precautions Precautions Hx of falls PT-OP-B Current Condition Start: 06/30/24 11:30 Freq: Status: Active Protocol: Document 06/30/24 11:31 NM (Rec: 06/30/24 12:32 NM [id number]) Current Condition History of Current Condition Onset Date April 2024 History of Current Condition Pt presents with L hip and knee pain. Pt reports that he fell down the stairs in a hotel, 05/10/24. He fell down 3 -4 steps. He fell onto that L side. He was able to immediately walk afterward but needed assitance to stand, required hand rail. He has had xrays. No other imaging or assessments. He reports pain in hip with sleeping, less with ambulating. He reports his L knee bothers him with walking, stairs. He has a flight of stairs in his home ( 2 flights of about 14), has L hand rail with ascent; has 5-6 steps on front porch with B rails. Pt denies any other falls, no near misses, but he does report a concern about falling due to balance. Lives with . Pt reports has been exercises for his hip ( twisting, side bends, things he's done in past), reports makes him feel better; performed in standing; has also done leg raises on floor (side hip abd). Pt reports that he has also had back pain since the fall, he has been taking icy-hot and tylenol ( recently eliminated). L>R back pain, about waistline, no midline pain. Pt has not had imaging of back. No hx of back pain prior to fall. Reports no numbness/tingling/burning in legs. Reports other day when getting out of boat after rowing, could not move legs and states unable to stand up (from quadruped), needed 2 hand assist to stand. He reports that this was 1st time on hands/knees since fall, states due to friction from unfinished concrete. He can get in/out of boat without problem if holding onto something. Prior Treatments and Tests Radiograph of L hip 05/2024: No acute osseous abnormality Radiograph of L knee 05/2024: No acute osseous abnormality. Small joint effusion. 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 Treatment Goals Patient/Caregiver Goals preferably decreased pain Current Functional Impairments (Reported) Functional Limitations- Mobility/Gait 1 mi during walk (includes hill)- fatigues Functional Limitations- Recreation/ light weight exercise, Hobbies elliptical on occasion (last 3 weeks) PT-OP-C Subjective Start: 06/30/24 11:30 Freq: Status: Active Protocol: Document 06/30/24 11:31 NM (Rec: 06/30/24 12:32 NM [id number]) OP-PT Subjective Patient Comments Patient Comments Back pain 2-3/10 daily (L>R), not midline pain, worse in am better with activity. Consents to participate in evaluation Patient Questionnaires Lower Extremity Functional Scale LEFS Score 56/80 Oswestry Low Back Index Oswestry Score 12/100 OP-PT Pain Assessment Location L knee Intensity 3 Scale Used Numeric (0 - 10) Description Aching,Dull Description- Other best: 3, worst: 5 Frequency Frequent Variations/Patterns B knees Pain Aggravating Factors Exercise,Standing,Walking, Stair Climbing Pain Alleviating Factors Medication L hip Intensity 4 Scale Used Numeric (0 - 10) Description Aching,Dull Description- Other best: 2, worst: 4 Frequency Frequent Radiating Location none Variations/Patterns am stiff, better w/ motion Pain Aggravating Factors Standing,Walking,Stair Climbing Other Pain Aggravating Factors sleeping - on back, side Pain Alleviating Factors Medication Other Pain Alleviating Factors icy hot, tylenol PT-OP-D Balance Start: 06/30/24 11:30 Freq: Status: Active Protocol: Document 06/30/24 11:31 NM (Rec: 06/30/24 12:32 NM [id number]) Balance Tests Penn Balance Test Penn Balance Test Score 31/56 Single Limb Standing Single Limb- Right 1 sec Single Limb- Left 1 sec PT-OP-E Functional Tests Start: 06/30/24 11:30 Freq: Status: Active Protocol: Document 06/30/24 11:31 NM (Rec: 06/30/24 12:32 NM [id number]) Functional Tests 30 Second Sit to Stand Test Score 11 Comments 21; reports no hip/knee pain, feels better Five Times Sit to Stand Test Score 12 sec Comments 21; reports no hip/knee pain; uses BLE to stab; poor stand balance PT-OP-F Manual Assessment Start: 06/30/24 11:30 Freq: Status: Active Protocol: Document 06/30/24 11:31 NM (Rec: 06/30/24 12:32 NM [id number]) Manual Assessments Soft Tissue Assessment Soft Tissue Mobility Assessment Decreased HS length B Joint Mobility Assessment Joint Mobility Assessment Decreased L hip and knee mobility AROM/PROM but not painful except at end range. Hypomobility of lumbar and SIJ PT-OP-G Mobility & Gait Start: 06/30/24 11:30 Freq: Status: Active Protocol: Document 06/30/24 11:31 NM (Rec: 06/30/24 12:47 NM [id number]) OP Gait Assessment Gait Gait Assistance Required: Independent Distance (Feet) 150 Assistive Devices Assistive Device None Gait Deviations General Gait Pattern Antalgic,Wide Based Gait Factors Limiting Gait Function Factors Limiting Gait Function Decreased Activity Tolerance, Decreased Strength,Limited Range of Motion,Pain,Poor Balance Comments Gait Comments Demos B knee flexion and slight hip flexion with stance . Antalgic gait, wider stance and SALVADOR with B hip ER, L>R PT-OP-J Posture/Palpation/Skin Start: 06/30/24 11:30 Freq: Status: Active Protocol: Document 06/30/24 11:31 NM (Rec: 06/30/24 12:32 NM [id number]) Posture Evaluation Position Standing Head/C-Spine Posture Forward Head L-Spine Posture Increased Lordosis Shoulder Posture (L) Rounded,(R) Rounded Pelvis Posture (L) Rotated Anterior,(L) Iliac Crest Superior Comments Posture Comments Increased knee flexion B, B hip ER L>R Palpation Assessment Location lumbar spine Palpation Details tenderness at L SIJ/PSIS No tenderness at midline L knee Palpation Details Increased bony girth at medial knee Tightness of hamstrings, boggy L hip Palpation Details Tightness at glute Tenderness over lateral- posterior hip near greater trochanter PT-OP-K Range of Motion Start: 06/30/24 11:30 Freq: Status: Active Protocol: Document 06/30/24 11:31 NM (Rec: 06/30/24 12:32 NM [id number]) Lumbar Spine Range of Motion Lumbar Spine Active Percentage Flexion 50 Extension 20 Lateral Flexion Left 50 Lateral Flexion Right 50 Comments 06/30/24: pain with lateral flexion B (L>R) Hip Goniometric Range of Motion Hip Right Flexion w/Knee Flexed 105 Internal Rotation 30 External Rotation 40 Comments HS: 125 deg Left Flexion w/Knee Flexed 105 Internal Rotation 28 External Rotation 30 Comments HS: 140 deg Knee Goniometric Range of Motion Knee Right Flexion Active (degrees) 120 Extension Active (degrees) 5 Left Flexion Active (degrees) 115 Extension Active (degrees) 4 PT-OP-L Special Tests Start: 06/30/24 11:30 Freq: Status: Active Protocol: Document 06/30/24 11:31 NM (Rec: 06/30/24 12:32 NM [id number]) Special Tests Lumbar Spine Special Tests Slump Test Results - Chavira/quadrant Test Results + R Comments local Hip Special Tests Stinchfield Resisted Hip Flexion Test Results + L FADIR Test Results + L Comments posterior hip BILLIE Test Results + L Comments posterior hip PT-OP-M Strength Start: 06/30/24 11:30 Freq: Status: Active Protocol: Document 06/30/24 11:31 NM (Rec: 06/30/24 12:32 NM [id number]) Trunk Strength Trunk Manual Muscle Testing Flexion 3+ Fair+ Extension 3+ Fair+ Rotation Left 3+ Fair+ Rotation Right 3+ Fair+ Lateral Flexion Left 3+ Fair+ Lateral Flexion Right 3+ Fair+ Comments Pain with resisted lateral flexion only Hip Strength Hip Manual Muscle Testing Right Flexion (L2) 4 Good Extension (S1) 3+ Fair+ Abduction 4 Good Adduction 4 Good External Rotation 4 Good Internal Rotation 4 Good Left Flexion (L2) 4- Good- Extension (S1) 3+ Fair+ Abduction 4- Good- Adduction 4- Good- External Rotation 4- Good- Internal Rotation 4- Good- Comments pain with flexion Knee Strength Knee Manual Muscle Testing Right Flexion (S2) 4 Good Extension (L3) 4 Good Comments no pain Left Flexion (S2) 4- Good- Extension (L3) 4- Good- Comments audible crepitus Ankle/Foot Strength Ankle and Foot Manual Muscle Testing Right Dorsiflexion (L4) 4 Good Plantarflexion (S1) 4 Good Comments tested in sitting Left Dorsiflexion (L4) 4 Good Plantarflexion (S1) 4 Good Comments tested in sitting PT-OP-Q Treatments Start: 06/30/24 11:30 Freq: Status: Active Protocol: Document 06/30/24 11:31 NM (Rec: 06/30/24 12:32 NM [id number]) Therapeutic Exercises Sitting Exercises hip abduction Sitting Exercise Name HEP: seated clam Side bilateral Resistance level 3 band Reps/Minutes 10 ea Comments cued for form sit to stand Sitting Exercise Name not issued as HEP d/t balance Equipment Used uses BLE to stabilize, no hand support Reps/Minutes 2x5 - CGA Comments initial standing balance challenging. Increased time w/ exercise PT-OP-T Assessment and Plan Start: 06/30/24 11:30 Freq: Status: Active Protocol: Document 06/30/24 11:31 NM (Rec: 06/30/24 12:32 NM [id number]) Physical Therapy Assessment Rehab Potential Rehabilitation Potential Good Evaluation Complexity Number of Personal Factors/Comorbidities 3 or More Number of Body Systems Impaired 3 Clinical Presentation at Evaluation Stable Impairments Impairments Activity Tolerance,Balance, Functional Activities, Functional Mobility,Gait,Pain, Posture,ROM,Sensation,Soft Tissue Mobility,Strength, Transfers Other Concerns Fall Risk increased Age Related Concerns PMH: arthritis, back pain, falls, hearing problems, surgery for hernia, hx prostate cancer, hypertension. Previous smoker Barriers to Rehabilitation Pt will be going out of town 2x during planned episode of care, which may impact rehab progression Goals Four Impairment not performing HEP Halfway Goal (LTG) Pt will report compliance with HEP at least 3x/wk in order to maximize progression with PT and to [facility] after discharge LTG Duration 10 weeks Three Impairment pain with stairs Halfway Goal (LTG) Pt will be able to perform at least 14 stairs with one or fewer handrails with pain <3/ 10 in knees in order to demonstrate improved functional mobility and symptom management LTG Duration 10 weeks Two Impairment Penn score 31/56 indicating increased risk of falls, hx of falls Satellite D[employer]r Goal (LTG) Pt will improve Penn balance test score to at least 41/56 in order to demonstrate decreased fall risk and ability to ambulate without assistance LTG Duration 10 weeks One Impairment STS transfers impaired Short Term Goal (STG) Pt will be able to perform at least 10 sit to stands from 21 surface or less with close SBA or better and without UE assistance or compensation in order to demonstrate improved initial standing balance and BLE strength for transfers STG Duration 5 weeks Halfway Goal (LTG) Pt will perform at least 5x STS from 21 height surface or lower without UE assistance or compensation and meet age- related norm of 14.8 sec or less in order to demonstrate improved initial standing balance and BLE strength for transfers LTG Duration 10 weeks Assessment Summary Assessment Pt is an 79 y.o. presenting with L hip and knee pain and B low back pain beginning in April 2024 secondary to a fall down stairs. Symptoms are consistent with dx. Recent imaging of hip and knee reveals degenerative changes. Pt reports symptoms overall improving since fall, but still has pain which limits his mobility during stairs/ gait and ability to participate in household tasks . Pt has impairments in gait, balance, strength, ROM, pain management, and activity tolerance. He has mild limitations bilaterally in L knee and hip AROM, in addition to hypomobility of his lumbopelvic spine. Positive BILLIE, FADIR, and Stinchfield resisted hip flexion test are consistent with subjective and objective findings. Pt's BLE and trunk strength is limited but not painful; he has difficulty with stabilizing against resistance. Pt's Penn score is 31/56, indicating increased fall risk. He is able to perform 5x STS transfers without UE assist but with difficulty stabilizing initial standing balance. PT educated pt on exam findings and plan of care . Pt would benefit from skilled PT for progressive global hip, knee, and trunk strengthening and flexibility training in addition to balance training in order to improve symptom management and decrease fall risk. Physical Therapy Plan Frequency and Duration Frequency of Treatment 2x/Week Duration of treatment (weeks) 10 Plan of Care Start Date 06/30/24 Plan of Care End Date 09/10/24 Therapeutic Interventions Therapeutic Interventions Balance Training,Gait Training ,Home Exercise Program,Joint Mobilizations,Manual Therapy, Neuromuscular Re-education, Orthotic/Prosthetic Management ,Patient/Caregiver Education, Self-Care/Home Management, Sensory Integration,Soft Tissue Mobilization,Taping, Therapeutic Activities, Therapeutic Exercises Modalities Cold Pack/Ice Massage,Hot Packs Next Visit Focus/Plan Next Note Type Treatment Note Next Visit Plan STS training LAQ, side steps, calf raise, toe raises, step ups Manual to HS, L hips and L knee, STM to lumbar spine Balance training, education on fall reduction strategies POC: global hip/knee/trunk strength, balance, transfers ( trial quadruped and floor transfers)
--- NOTE | 2024-07-06 14:50 | PT.OTN ---
Current Diagnoses Pain in left hip (07/06/24) Stiffness of left hip, not elsewhere classified (07/06/24) Stiffness of left knee, not elsewhere classified (07/06/24) Stiffness of other specified joint, not elsewhere classified (07/06/24) Other lack of coordination (07/06/24) Weakness (07/06/24) Physical Therapy Treatment Note PT-OP-A Visit Information Start: 06/30/24 11:30 Freq: Status: Active Protocol: Document 07/06/24 13:45 NM (Rec: 07/06/24 14:50 NM [id number]) Out-Patient Physical Therapy Visit Information Visit Information Visit Type Treatment Note Visit Start Time 13:46 Visit Stop Time 14:30 Visit Number 2 Evaluation Information Evaluation Date 06/30/24 Precautions Precautions Hx of falls PT-OP-B Current Condition Start: 06/30/24 11:30 Freq: Status: Active Protocol: Document 06/30/24 11:31 NM (Rec: 06/30/24 12:32 NM [id number]) Current Condition History of Current Condition Onset Date April 2024 History of Current Condition Pt presents with L hip and knee pain. Pt reports that he fell down the stairs in a hotel, 05/10/24. He fell down 3 -4 steps. He fell onto that L side. He was able to immediately walk afterward but needed assitance to stand, required hand rail. He has had xrays. No other imaging or assessments. He reports pain in hip with sleeping, less with ambulating. He reports his L knee bothers him with walking, stairs. He has a flight of stairs in his home ( 2 flights of about 14), has L hand rail with ascent; has 5-6 steps on front porch with B rails. Pt denies any other falls, no near misses, but he does report a concern about falling due to balance. Lives with . Pt reports has been exercises for his hip ( twisting, side bends, things he's done in past), reports makes him feel better; performed in standing; has also done leg raises on floor (side hip abd). Pt reports that he has also had back pain since the fall, he has been taking icy-hot and tylenol ( recently eliminated). L>R back pain, about waistline, no midline pain. Pt has not had imaging of back. No hx of back pain prior to fall. Reports no numbness/tingling/burning in legs. Reports other day when getting out of boat after rowing, could not move legs and states unable to stand up (from quadruped), needed 2 hand assist to stand. He reports that this was 1st time on hands/knees since fall, states due to friction from unfinished concrete. He can get in/out of boat without problem if holding onto something. Prior Treatments and Tests Radiograph of L hip 05/2024: No acute osseous abnormality Radiograph of L knee 05/2024: No acute osseous abnormality. Small joint effusion. 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 Treatment Goals Patient/Caregiver Goals preferably decreased pain Current Functional Impairments (Reported) Functional Limitations- Mobility/Gait 1 mi during walk (includes hill)- fatigues Functional Limitations- Recreation/ light weight exercise, Hobbies elliptical on occasion (last 3 weeks) PT-OP-C Subjective Start: 06/30/24 11:30 Freq: Status: Active Protocol: Document 07/06/24 13:45 NM (Rec: 07/06/24 14:50 NM [id number]) OP-PT Subjective Patient Comments Patient Comments Pt reports exercises helping his hip. He states that he flew down to [place]. He reports that he did his exercises. He reports that his L knee feels heavy, reports not painful, just heavy. Reports no hip pain at this time. Took the dog out for a walk this am. Reports only pain in buttock with stairs. Also reports that he heard a pop near time of injury at buttock area, reproduced with stairs. PT-OP-D Balance Start: 06/30/24 11:30 Freq: Status: Active Protocol: Document 06/30/24 11:31 NM (Rec: 06/30/24 12:32 NM [id number]) Balance Tests Penn Balance Test Penn Balance Test Score 31/56 Single Limb Standing Single Limb- Right 1 sec Single Limb- Left 1 sec PT-OP-E Functional Tests Start: 06/30/24 11:30 Freq: Status: Active Protocol: Document 06/30/24 11:31 NM (Rec: 06/30/24 12:32 NM [id number]) Functional Tests 30 Second Sit to Stand Test Score 11 Comments 21; reports no hip/knee pain, feels better Five Times Sit to Stand Test Score 12 sec Comments 21; reports no hip/knee pain; uses BLE to stab; poor stand balance PT-OP-F Manual Assessment Start: 06/30/24 11:30 Freq: Status: Active Protocol: Document 06/30/24 11:31 NM (Rec: 06/30/24 12:32 NM [id number]) Manual Assessments Soft Tissue Assessment Soft Tissue Mobility Assessment Decreased HS length B Joint Mobility Assessment Joint Mobility Assessment Decreased L hip and knee mobility AROM/PROM but not painful except at end range. Hypomobility of lumbar and SIJ PT-OP-G Mobility & Gait Start: 06/30/24 11:30 Freq: Status: Active Protocol: Document 06/30/24 11:31 NM (Rec: 06/30/24 12:47 NM [id number]) OP Gait Assessment Gait Gait Assistance Required: Independent Distance (Feet) 150 Assistive Devices Assistive Device None Gait Deviations General Gait Pattern Antalgic,Wide Based Gait Factors Limiting Gait Function Factors Limiting Gait Function Decreased Activity Tolerance, Decreased Strength,Limited Range of Motion,Pain,Poor Balance Comments Gait Comments Demos B knee flexion and slight hip flexion with stance . Antalgic gait, wider stance and SALVADOR with B hip ER, L>R PT-OP-J Posture/Palpation/Skin Start: 06/30/24 11:30 Freq: Status: Active Protocol: Document 06/30/24 11:31 NM (Rec: 06/30/24 12:32 NM [id number]) Posture Evaluation Position Standing Head/C-Spine Posture Forward Head L-Spine Posture Increased Lordosis Shoulder Posture (L) Rounded,(R) Rounded Pelvis Posture (L) Rotated Anterior,(L) Iliac Crest Superior Comments Posture Comments Increased knee flexion B, B hip ER L>R Palpation Assessment Location lumbar spine Palpation Details tenderness at L SIJ/PSIS No tenderness at midline L knee Palpation Details Increased bony girth at medial knee Tightness of hamstrings, boggy L hip Palpation Details Tightness at glute Tenderness over lateral- posterior hip near greater trochanter PT-OP-K Range of Motion Start: 06/30/24 11:30 Freq: Status: Active Protocol: Document 06/30/24 11:31 NM (Rec: 06/30/24 12:32 NM [id number]) Lumbar Spine Range of Motion Lumbar Spine Active Percentage Flexion 50 Extension 20 Lateral Flexion Left 50 Lateral Flexion Right 50 Comments 06/30/24: pain with lateral flexion B (L>R) Hip Goniometric Range of Motion Hip Right Flexion w/Knee Flexed 105 Internal Rotation 30 External Rotation 40 Comments HS: 125 deg Left Flexion w/Knee Flexed 105 Internal Rotation 28 External Rotation 30 Comments HS: 140 deg Knee Goniometric Range of Motion Knee Right Flexion Active (degrees) 120 Extension Active (degrees) 5 Left Flexion Active (degrees) 115 Extension Active (degrees) 4 PT-OP-L Special Tests Start: 06/30/24 11:30 Freq: Status: Active Protocol: Document 06/30/24 11:31 NM (Rec: 06/30/24 12:32 NM [id number]) Special Tests Lumbar Spine Special Tests Slump Test Results - Chavira/quadrant Test Results + R Comments local Hip Special Tests Stinchfield Resisted Hip Flexion Test Results + L FADIR Test Results + L Comments posterior hip BILLIE Test Results + L Comments posterior hip PT-OP-M Strength Start: 06/30/24 11:30 Freq: Status: Active Protocol: Document 06/30/24 11:31 NM (Rec: 06/30/24 12:32 NM [id number]) Trunk Strength Trunk Manual Muscle Testing Flexion 3+ Fair+ Extension 3+ Fair+ Rotation Left 3+ Fair+ Rotation Right 3+ Fair+ Lateral Flexion Left 3+ Fair+ Lateral Flexion Right 3+ Fair+ Comments Pain with resisted lateral flexion only Hip Strength Hip Manual Muscle Testing Right Flexion (L2) 4 Good Extension (S1) 3+ Fair+ Abduction 4 Good Adduction 4 Good External Rotation 4 Good Internal Rotation 4 Good Left Flexion (L2) 4- Good- Extension (S1) 3+ Fair+ Abduction 4- Good- Adduction 4- Good- External Rotation 4- Good- Internal Rotation 4- Good- Comments pain with flexion Knee Strength Knee Manual Muscle Testing Right Flexion (S2) 4 Good Extension (L3) 4 Good Comments no pain Left Flexion (S2) 4- Good- Extension (L3) 4- Good- Comments audible crepitus Ankle/Foot Strength Ankle and Foot Manual Muscle Testing Right Dorsiflexion (L4) 4 Good Plantarflexion (S1) 4 Good Comments tested in sitting Left Dorsiflexion (L4) 4 Good Plantarflexion (S1) 4 Good Comments tested in sitting PT-OP-Q Treatments Start: 06/30/24 11:30 Freq: Status: Active Protocol: Document 07/06/24 13:45 NM (Rec: 07/06/24 14:50 NM [id number]) Therapeutic Exercises Supine Exercises figure 4 stretch Supine Exercise Name trialed in PT: 45 deg hip flex Side bilateral Reps/Minutes 2x30 ea Comments limited ROM Sidelying Exercises hip abduction Side bilateral Reps/Minutes 10 ea Comments cued to roll hips more fwd; reports pain in L hip, so d/c Sitting Exercises LAQ Side bilateral Resistance AROM Equipment Used 22 plinth Reps/Minutes 2x10 ea Comments cued tall posture, neutral foot position/knee position; eccentric shakes B hip abduction Sitting Exercise Name HEP: seated clam Side bilateral Resistance level 3 band Reps/Minutes 10 ea Comments cued for form sit to stand Sitting Exercise Name 22 plinth Side bilateral Resistance level 2 band at thighs Equipment Used fwd reach for WS ant Reps/Minutes 5,5,10- cued slow lowering, set up Comments no hip or knee pain; CGA 1st rep to stabilize, close SPV for rest Standing Exercises side steps Standing Exercise Name HEP (edu to have counter top nearby for balance prn) Side bilateral Resistance level 3 band at knees Equipment Used near //bars for hand support; did not use Reps/Minutes 3x10 ft Comments pain free; cued neutral foot position, avoid hip ER Manual Therapy Treatment Consent Patient gave verbal consent for manual Yes treatment Soft Tissue Mobilization L hip Body Location TFL, quad, adductors, prox HS, glutes/piriformis Mobilization Type Rolling,Strumming,Trigger Point Release,Other Intensity/Depth superficial-moderate Body Position supine-sidelying Comments No tenderness at anterior hip, but does have trigger points at adductors and lateral quad near ITB. Performed gentle trigger point release, no pain . Palpable bulge near proximal lateral hamstrings, and near ischial tuberosity. Pt has tenderness, reports mild improvement in tenderness and tightness with gentle soft tissue mobilization. PT-OP-T Assessment and Plan Start: 06/30/24 11:30 Freq: Status: Active Protocol: Document 07/06/24 13:45 NM (Rec: 07/06/24 14:50 NM [id number]) Physical Therapy Assessment Goals Four Impairment not performing HEP Fdc Goal (LTG) Pt will report compliance with HEP at least 3x/wk in order to maximize progression with PT and [facility] LTG Duration 10 weeks Three Impairment pain with stairs [employer] Goal (LTG) Pt will be able to perform at least 14 stairs with one or fewer handrails with pain <3/ 10 in knees in order to demonstrate improved functional mobility and symptom management LTG Duration 10 weeks Two Impairment Penn score 31/56 indicating increased risk of falls, hx of falls Fdc Goal (LTG) Pt will improve Penn balance test score to at least 41/56 in order to demonstrate decreased fall risk and ability to ambulate without assistance LTG Duration 10 weeks One Impairment STS transfers impaired Short Term Goal (STG) Pt will be able to perform at least 10 sit to stands from 21 surface or less with close SBA or better and without UE assistance or compensation in order to demonstrate improved initial standing balance and BLE strength for transfers STG Duration 5 weeks Fdc Goal (LTG) Pt will perform at least 5x STS from 21 height surface or lower without UE assistance or compensation and meet age- related norm of 14.8 sec or less in order to demonstrate improved initial standing balance and BLE strength for transfers LTG Duration 10 weeks Assessment Summary Assessment Pt tolerated session well, reports only mild pain at L posterior hip/buttock with figure 4 stretch and sidelying hip abd. Resolved to 0/10 at end of session. Good response to all other exercise. Initiated STS training at 22 plinth for BLE strength during transfers and to address initial balance with standing. Cueing for knee extension and tall posture as maintains knee flexion in standing. One instance of CGA to steady with initial standing balance. Continued with BLE strengthening. Good response to all glute activities except for sidelying hip abduction, which reproduces pain. Good tolerance instead for side steps. Fatigues quickly with LAQ, cued for fomr; limited due to hamstring length. Pt responds well to gentle manual therapy to hip. Has palpable bulge near proximal hamstring/ ischial tuberosity, not felt during evaluation but is tender and area of pain with stairs. Reports pain reduction with gentle manual therapy. Will continue to assess in future to determine hamstring involvement. Pt would benefit from skilled PT for progressive BLE strengthening, balance, and transfer training in order to improve symptom management and tolerance for standing activities/ADLs. Physical Therapy Plan Frequency and Duration Frequency of Treatment 2x/Week Duration of treatment (weeks) 10 Plan of Care Start Date 06/30/24 Plan of Care End Date 09/10/24 Therapeutic Interventions Therapeutic Interventions Balance Training,Gait Training ,Home Exercise Program,Joint Mobilizations,Manual Therapy, Neuromuscular Re-education, Orthotic/Prosthetic Management ,Patient/Caregiver Education, Self-Care/Home Management, Sensory Integration,Soft Tissue Mobilization,Taping, Therapeutic Activities, Therapeutic Exercises Modalities Cold Pack/Ice Massage,Hot Packs Next Visit Focus/Plan Next Note Type Treatment Note Next Visit Plan cont w/ STS training. no HS stretching at this time. Trial stair hip flexor stretch. review LAQ and add resistance if able. review side steps. Add calf raise, toe raises, trial HSC in sitting vs prone; if painful at buttock, then trial seated heel dig isometrics. Hip [address] way and leg press. Address balance: hurdles, stable/unstable surfaces Manual to HS, L hips and L knee, STM to lumbar spine Balance training, education on fall reduction strategies POC: global hip/knee/trunk strength, balance, step ups, transfers (trial quadruped and floor transfers)
--- NOTE | 2024-07-08 16:58 | PT.OTN ---
Current Diagnoses Pain in left hip (07/08/24) Stiffness of left hip, not elsewhere classified (07/08/24) Stiffness of left knee, not elsewhere classified (07/08/24) Stiffness of other specified joint, not elsewhere classified (07/08/24) Other lack of coordination (07/08/24) Weakness (07/08/24) Physical Therapy Treatment Note PT-OP-A Visit Information Start: 06/30/24 11:30 Freq: Status: Active Protocol: Document 07/08/24 13:51 SW (Rec: 07/08/24 14:34 SW [id number]) Out-Patient Physical Therapy Visit Information Visit Information Visit Type Treatment Note Visit Start Time 13:50 Visit Stop Time 14:30 Visit Number 3 Precautions Precautions Hx of falls PT-OP-B Current Condition Start: 06/30/24 11:30 Freq: Status: Active Protocol: Document 06/30/24 11:31 NM (Rec: 06/30/24 12:32 NM [id number]) Current Condition History of Current Condition Onset Date April 2024 History of Current Condition Pt presents with L hip and knee pain. Pt reports that he fell down the stairs in a hotel, 05/10/24. He fell down 3 -4 steps. He fell onto that L side. He was able to immediately walk afterward but needed assitance to stand, required hand rail. He has had xrays. No other imaging or assessments. He reports pain in hip with sleeping, less with ambulating. He reports his L knee bothers him with walking, stairs. He has a flight of stairs in his home ( 2 flights of about 14), has L hand rail with ascent; has 5-6 steps on front porch with B rails. Pt denies any other falls, no near misses, but he does report a concern about falling due to balance. Lives with . Pt reports has been exercises for his hip ( twisting, side bends, things he's done in past), reports makes him feel better; performed in standing; has also done leg raises on floor (side hip abd). Pt reports that he has also had back pain since the fall, he has been taking icy-hot and tylenol ( recently eliminated). L>R back pain, about waistline, no midline pain. Pt has not had imaging of back. No hx of back pain prior to fall. Reports no numbness/tingling/burning in legs. Reports other day when getting out of boat after rowing, could not move legs and states unable to stand up (from quadruped), needed 2 hand assist to stand. He reports that this was 1st time on hands/knees since fall, states due to friction from unfinished concrete. He can get in/out of boat without problem if holding onto something. Prior Treatments and Tests Radiograph of L hip 05/2024: No acute osseous abnormality Radiograph of L knee 05/2024: No acute osseous abnormality. Small joint effusion. 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 Treatment Goals Patient/Caregiver Goals preferably decreased pain Current Functional Impairments (Reported) Functional Limitations- Mobility/Gait 1 mi during walk (includes hill)- fatigues Functional Limitations- Recreation/ light weight exercise, Hobbies elliptical on occasion (last 3 weeks) PT-OP-C Subjective Start: 06/30/24 11:30 Freq: Status: Active Protocol: Document 07/08/24 13:51 SW (Rec: 07/08/24 14:34 SW [id number]) OP-PT Subjective Patient Comments Patient Comments Pt reports starting to feel progress. PT-OP-D Balance Start: 06/30/24 11:30 Freq: Status: Active Protocol: Document 06/30/24 11:31 NM (Rec: 06/30/24 12:32 NM [id number]) Balance Tests Penn Balance Test Penn Balance Test Score 31/56 Single Limb Standing Single Limb- Right 1 sec Single Limb- Left 1 sec PT-OP-E Functional Tests Start: 06/30/24 11:30 Freq: Status: Active Protocol: Document 06/30/24 11:31 NM (Rec: 06/30/24 12:32 NM [id number]) Functional Tests 30 Second Sit to Stand Test Score 11 Comments 21; reports no hip/knee pain, feels better Five Times Sit to Stand Test Score 12 sec Comments 21; reports no hip/knee pain; uses BLE to stab; poor stand balance PT-OP-F Manual Assessment Start: 06/30/24 11:30 Freq: Status: Active Protocol: Document 06/30/24 11:31 NM (Rec: 06/30/24 12:32 NM [id number]) Manual Assessments Soft Tissue Assessment Soft Tissue Mobility Assessment Decreased HS length B Joint Mobility Assessment Joint Mobility Assessment Decreased L hip and knee mobility AROM/PROM but not painful except at end range. Hypomobility of lumbar and SIJ PT-OP-G Mobility & Gait Start: 06/30/24 11:30 Freq: Status: Active Protocol: Document 06/30/24 11:31 NM (Rec: 06/30/24 12:47 NM [id number]) OP Gait Assessment Gait Gait Assistance Required: Independent Distance (Feet) 150 Assistive Devices Assistive Device None Gait Deviations General Gait Pattern Antalgic,Wide Based Gait Factors Limiting Gait Function Factors Limiting Gait Function Decreased Activity Tolerance, Decreased Strength,Limited Range of Motion,Pain,Poor Balance Comments Gait Comments Demos B knee flexion and slight hip flexion with stance . Antalgic gait, wider stance and SALVADOR with B hip ER, L>R PT-OP-J Posture/Palpation/Skin Start: 06/30/24 11:30 Freq: Status: Active Protocol: Document 06/30/24 11:31 NM (Rec: 06/30/24 12:32 NM [id number]) Posture Evaluation Position Standing Head/C-Spine Posture Forward Head L-Spine Posture Increased Lordosis Shoulder Posture (L) Rounded,(R) Rounded Pelvis Posture (L) Rotated Anterior,(L) Iliac Crest Superior Comments Posture Comments Increased knee flexion B, B hip ER L>R Palpation Assessment Location lumbar spine Palpation Details tenderness at L SIJ/PSIS No tenderness at midline L knee Palpation Details Increased bony girth at medial knee Tightness of hamstrings, boggy L hip Palpation Details Tightness at glute Tenderness over lateral- posterior hip near greater trochanter PT-OP-K Range of Motion Start: 06/30/24 11:30 Freq: Status: Active Protocol: Document 06/30/24 11:31 NM (Rec: 06/30/24 12:32 NM [id number]) Lumbar Spine Range of Motion Lumbar Spine Active Percentage Flexion 50 Extension 20 Lateral Flexion Left 50 Lateral Flexion Right 50 Comments 06/30/24: pain with lateral flexion B (L>R) Hip Goniometric Range of Motion Hip Right Flexion w/Knee Flexed 105 Internal Rotation 30 External Rotation 40 Comments HS: 125 deg Left Flexion w/Knee Flexed 105 Internal Rotation 28 External Rotation 30 Comments HS: 140 deg Knee Goniometric Range of Motion Knee Right Flexion Active (degrees) 120 Extension Active (degrees) 5 Left Flexion Active (degrees) 115 Extension Active (degrees) 4 PT-OP-L Special Tests Start: 06/30/24 11:30 Freq: Status: Active Protocol: Document 06/30/24 11:31 NM (Rec: 06/30/24 12:32 NM [id number]) Special Tests Lumbar Spine Special Tests Slump Test Results - Chavira/quadrant Test Results + R Comments local Hip Special Tests Stinchfield Resisted Hip Flexion Test Results + L FADIR Test Results + L Comments posterior hip BILLIE Test Results + L Comments posterior hip PT-OP-M Strength Start: 06/30/24 11:30 Freq: Status: Active Protocol: Document 06/30/24 11:31 NM (Rec: 06/30/24 12:32 NM [id number]) Trunk Strength Trunk Manual Muscle Testing Flexion 3+ Fair+ Extension 3+ Fair+ Rotation Left 3+ Fair+ Rotation Right 3+ Fair+ Lateral Flexion Left 3+ Fair+ Lateral Flexion Right 3+ Fair+ Comments Pain with resisted lateral flexion only Hip Strength Hip Manual Muscle Testing Right Flexion (L2) 4 Good Extension (S1) 3+ Fair+ Abduction 4 Good Adduction 4 Good External Rotation 4 Good Internal Rotation 4 Good Left Flexion (L2) 4- Good- Extension (S1) 3+ Fair+ Abduction 4- Good- Adduction 4- Good- External Rotation 4- Good- Internal Rotation 4- Good- Comments pain with flexion Knee Strength Knee Manual Muscle Testing Right Flexion (S2) 4 Good Extension (L3) 4 Good Comments no pain Left Flexion (S2) 4- Good- Extension (L3) 4- Good- Comments audible crepitus Ankle/Foot Strength Ankle and Foot Manual Muscle Testing Right Dorsiflexion (L4) 4 Good Plantarflexion (S1) 4 Good Comments tested in sitting Left Dorsiflexion (L4) 4 Good Plantarflexion (S1) 4 Good Comments tested in sitting PT-OP-Q Treatments Start: 06/30/24 11:30 Freq: Status: Active Protocol: Document 07/08/24 13:51 SW (Rec: 07/08/24 14:34 SW [id number]) Therapeutic Exercises Supine Exercises figure 4 stretch Supine Exercise Name trialed in PT: 45 deg hip flex Side bilateral Reps/Minutes 2x30 ea Comments limited ROM Sitting Exercises LAQ Sitting Exercise Name HEP reviewed Side bilateral Resistance AROM, pt still challenged w/ out resistance in LLE Equipment Used 22 plinth Reps/Minutes 2x10 ea, 1 hold at top Comments cued tall posture, neutral foot position/knee position; eccentric shakes B hip abduction Sitting Exercise Name HEP: seated clam Side bilateral Resistance level 3 band Reps/Minutes 10 ea Comments cued for form sit to stand Sitting Exercise Name 22 plinth Side bilateral Resistance level 2 band at thighs Equipment Used fwd reach for WS ant Reps/Minutes 2 x 10 cued slow lowering, set up Comments no hip or knee pain; close SBA , cues for COG to prevent posterior LOB Standing Exercises Hip 3 way Standing Exercise Name Hip 3 way (in PT only today) flex,abd,ext Resistance TB band above knees Equipment Used @ rail for balance Comments denies pain, cues for form, and no incr lumbar lordosis w/ hip extension Heel/Toe raises Standing Exercise Name DF/PF (HEP issued) Side bilateral Resistance AROM Equipment Used // bars for balance support Reps/Minutes 2x10 Comments cues for form side steps Standing Exercise Name HEP (edu to have counter top nearby for balance prn) Side bilateral Resistance level 3 band at knees Equipment Used near //bars for hand support; did not use Reps/Minutes 3x10 ft Comments pain free; cued neutral foot position, avoid hip ER Neuro Re-Education Treatment Balance Activities Hurdles Details fwd/lateral PT-OP-T Assessment and Plan Start: 06/30/24 11:30 Freq: Status: Active Protocol: Document 07/08/24 13:51 SW (Rec: 07/08/24 14:34 [id number]) Physical Therapy Assessment Goals Four Impairment not performing HEP Alf Goal (LTG) Pt will report compliance with HEP at least 3x/wk in order to maximize progression with PT and to transition to maitenance program after discharge LTG Duration 10 weeks Three Impairment pain with stairs Alf Goal (LTG) Pt will be able to perform at least 14 stairs with one or fewer handrails with pain <3/ 10 in knees in order to demonstrate improved functional mobility and symptom management LTG Duration 10 weeks Two Impairment Penn score 31/56 indicating increased risk of falls, hx of falls Alf Goal (LTG) Pt will improve Penn balance test score to at least 41/56 in order to demonstrate decreased fall risk and ability to ambulate without assistance LTG Duration 10 weeks One Impairment STS transfers impaired Short Term Goal (STG) Pt will be able to perform at least 10 sit to stands from 21 surface or less with close SBA or better and without UE assistance or compensation in order to demonstrate improved initial standing balance and BLE strength for transfers STG Duration 5 weeks Alf Goal (LTG) Pt will perform at least 5x STS from 21 height surface or lower without UE assistance or compensation and meet age- related norm of 14.8 sec or less in order to demonstrate improved initial standing balance and BLE strength for transfers LTG Duration 10 weeks Assessment Summary Assessment Pt tolerated session well, with no reproduction of pain throughout session. Initiated Heel/toe raises, good carryover of form following verbal cues, issued HEP HO. trialed progression to hip 3 ways, did not issue HEP today, plan to followup on tolerance and form prior to issueing HEP HO. Pt challenged with STS this session at elevated table, mod cues required for setup,mechanics, and COG to prevent posterior LOB, close SBA, pt may benefit from continued focus next session. Physical Therapy Plan Frequency and Duration Frequency of Treatment 2x/Week Duration of treatment (weeks) 10 Plan of Care Start Date 06/30/24 Plan of Care End Date 09/10/24 Therapeutic Interventions Therapeutic Interventions Balance Training,Gait Training ,Home Exercise Program,Joint Mobilizations,Manual Therapy, Neuromuscular Re-education, Orthotic/Prosthetic Management ,Patient/Caregiver Education, Self-Care/Home Management, Sensory Integration,Soft Tissue Mobilization,Taping, Therapeutic Activities, Therapeutic Exercises Modalities Cold Pack/Ice Massage,Hot Packs Next Visit Focus/Plan Next Note Type Treatment Note Next Visit Plan cont w/ STS training. no HS stretching at this time. Trial stair hip flexor stretch. review LAQ and add resistance if able. review side steps. Add calf raise, toe raises, trial HSC in sitting vs prone; if painful at buttock, then trial seated heel dig isometrics. Hip [address] way and leg press. Address balance: hurdles, stable/unstable surfaces Manual to HS, L hips and L knee, STM to lumbar spine Balance training, education on fall reduction strategies POC: global hip/knee/trunk strength, balance, step ups, transfers (trial quadruped and floor transfers)
--- NOTE | 2024-07-13 08:59 | PT.OTN ---
Current Diagnoses Pain in left hip (07/13/24) Stiffness of left hip, not elsewhere classified (07/13/24) Stiffness of left knee, not elsewhere classified (07/13/24) Stiffness of other specified joint, not elsewhere classified (07/13/24) Other lack of coordination (07/13/24) Weakness (07/13/24) Physical Therapy Treatment Note PT-OP-A Visit Information Start: 06/30/24 11:30 Freq: Status: Active Protocol: Document 07/13/24 08:04 NM (Rec: 07/13/24 08:05 NM [id number]) Out-Patient Physical Therapy Visit Information Visit Information Visit Type Treatment Note Visit Note 12/23 post eval Visit Start Time 08:15 Visit Stop Time 08:56 Visit Number 4 Evaluation Information Evaluation Date 06/30/24 Precautions Precautions Hx of falls PT-OP-B Current Condition Start: 06/30/24 11:30 Freq: Status: Active Protocol: Document 06/30/24 11:31 NM (Rec: 06/30/24 12:32 NM [id number]) Current Condition History of Current Condition Onset Date April 2024 History of Current Condition Pt presents with L hip and knee pain. Pt reports that he fell down the stairs in a hotel, 05/10/24. He fell down 3 -4 steps. He fell onto that L side. He was able to immediately walk afterward but needed assitance to stand, required hand rail. He has had xrays. No other imaging or assessments. He reports pain in hip with sleeping, less with ambulating. He reports his L knee bothers him with walking, stairs. He has a flight of stairs in his home ( 2 flights of about 14), has L hand rail with ascent; has 5-6 steps on front porch with B rails. Pt denies any other falls, no near misses, but he does report a concern about falling due to balance. Lives with . Pt reports has been exercises for his hip ( twisting, side bends, things he's done in past), reports makes him feel better; performed in standing; has also done leg raises on floor (side hip abd). Pt reports that he has also had back pain since the fall, he has been taking icy-hot and tylenol ( recently eliminated). L>R back pain, about waistline, no midline pain. Pt has not had imaging of back. No hx of back pain prior to fall. Reports no numbness/tingling/burning in legs. Reports other day when getting out of boat after rowing, could not move legs and states unable to stand up (from quadruped), needed 2 hand assist to stand. He reports that this was 1st time on hands/knees since fall, states due to friction from unfinished concrete. He can get in/out of boat without problem if holding onto something. Prior Treatments and Tests Radiograph of L hip 05/2024: No acute osseous abnormality Radiograph of L knee 05/2024: No acute osseous abnormality. Small joint effusion. 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 Treatment Goals Patient/Caregiver Goals preferably decreased pain Current Functional Impairments (Reported) Functional Limitations- Mobility/Gait 1 mi during walk (includes hill)- fatigues Functional Limitations- Recreation/ light weight exercise, Hobbies elliptical on occasion (last 3 weeks) PT-OP-C Subjective Start: 06/30/24 11:30 Freq: Status: Active Protocol: Document 07/13/24 08:04 NM (Rec: 07/13/24 08:05 NM [id number]) OP-PT Subjective Patient Comments Patient Comments Pt reports no pain right now in his leg. Reports has been doing HEP every day, states feels beneficial. No pain or soreness after last session. No changes since last session. No pain with stairs at home PT-OP-D Balance Start: 06/30/24 11:30 Freq: Status: Active Protocol: Document 06/30/24 11:31 NM (Rec: 06/30/24 12:32 NM [id number]) Balance Tests Penn Balance Test Penn Balance Test Score 31/56 Single Limb Standing Single Limb- Right 1 sec Single Limb- Left 1 sec PT-OP-E Functional Tests Start: 06/30/24 11:30 Freq: Status: Active Protocol: Document 06/30/24 11:31 NM (Rec: 06/30/24 12:32 NM [id number]) Functional Tests 30 Second Sit to Stand Test Score 11 Comments 21; reports no hip/knee pain, feels better Five Times Sit to Stand Test Score 12 sec Comments 21; reports no hip/knee pain; uses BLE to stab; poor stand balance PT-OP-F Manual Assessment Start: 06/30/24 11:30 Freq: Status: Active Protocol: Document 06/30/24 11:31 NM (Rec: 06/30/24 12:32 NM [id number]) Manual Assessments Soft Tissue Assessment Soft Tissue Mobility Assessment Decreased HS length B Joint Mobility Assessment Joint Mobility Assessment Decreased L hip and knee mobility AROM/PROM but not painful except at end range. Hypomobility of lumbar and SIJ PT-OP-G Mobility & Gait Start: 06/30/24 11:30 Freq: Status: Active Protocol: Document 06/30/24 11:31 NM (Rec: 06/30/24 12:47 NM [id number]) OP Gait Assessment Gait Gait Assistance Required: Independent Distance (Feet) 150 Assistive Devices Assistive Device None Gait Deviations General Gait Pattern Antalgic,Wide Based Gait Factors Limiting Gait Function Factors Limiting Gait Function Decreased Activity Tolerance, Decreased Strength,Limited Range of Motion,Pain,Poor Balance Comments Gait Comments Demos B knee flexion and slight hip flexion with stance . Antalgic gait, wider stance and SALVADOR with B hip ER, L>R PT-OP-J Posture/Palpation/Skin Start: 06/30/24 11:30 Freq: Status: Active Protocol: Document 06/30/24 11:31 NM (Rec: 06/30/24 12:32 NM [id number]) Posture Evaluation Position Standing Head/C-Spine Posture Forward Head L-Spine Posture Increased Lordosis Shoulder Posture (L) Rounded,(R) Rounded Pelvis Posture (L) Rotated Anterior,(L) Iliac Crest Superior Comments Posture Comments Increased knee flexion B, B hip ER L>R Palpation Assessment Location lumbar spine Palpation Details tenderness at L SIJ/PSIS No tenderness at midline L knee Palpation Details Increased bony girth at medial knee Tightness of hamstrings, boggy L hip Palpation Details Tightness at glute Tenderness over lateral- posterior hip near greater trochanter PT-OP-K Range of Motion Start: 06/30/24 11:30 Freq: Status: Active Protocol: Document 06/30/24 11:31 NM (Rec: 06/30/24 12:32 NM [id number]) Lumbar Spine Range of Motion Lumbar Spine Active Percentage Flexion 50 Extension 20 Lateral Flexion Left 50 Lateral Flexion Right 50 Comments 06/30/24: pain with lateral flexion B (L>R) Hip Goniometric Range of Motion Hip Right Flexion w/Knee Flexed 105 Internal Rotation 30 External Rotation 40 Comments HS: 125 deg Left Flexion w/Knee Flexed 105 Internal Rotation 28 External Rotation 30 Comments HS: 140 deg Knee Goniometric Range of Motion Knee Right Flexion Active (degrees) 120 Extension Active (degrees) 5 Left Flexion Active (degrees) 115 Extension Active (degrees) 4 PT-OP-L Special Tests Start: 06/30/24 11:30 Freq: Status: Active Protocol: Document 06/30/24 11:31 NM (Rec: 06/30/24 12:32 NM [id number]) Special Tests Lumbar Spine Special Tests Slump Test Results - Chavira/quadrant Test Results + R Comments local Hip Special Tests Stinchfield Resisted Hip Flexion Test Results + L FADIR Test Results + L Comments posterior hip BILLIE Test Results + L Comments posterior hip PT-OP-M Strength Start: 06/30/24 11:30 Freq: Status: Active Protocol: Document 06/30/24 11:31 NM (Rec: 06/30/24 12:32 NM [id number]) Trunk Strength Trunk Manual Muscle Testing Flexion 3+ Fair+ Extension 3+ Fair+ Rotation Left 3+ Fair+ Rotation Right 3+ Fair+ Lateral Flexion Left 3+ Fair+ Lateral Flexion Right 3+ Fair+ Comments Pain with resisted lateral flexion only Hip Strength Hip Manual Muscle Testing Right Flexion (L2) 4 Good Extension (S1) 3+ Fair+ Abduction 4 Good Adduction 4 Good External Rotation 4 Good Internal Rotation 4 Good Left Flexion (L2) 4- Good- Extension (S1) 3+ Fair+ Abduction 4- Good- Adduction 4- Good- External Rotation 4- Good- Internal Rotation 4- Good- Comments pain with flexion Knee Strength Knee Manual Muscle Testing Right Flexion (S2) 4 Good Extension (L3) 4 Good Comments no pain Left Flexion (S2) 4- Good- Extension (L3) 4- Good- Comments audible crepitus Ankle/Foot Strength Ankle and Foot Manual Muscle Testing Right Dorsiflexion (L4) 4 Good Plantarflexion (S1) 4 Good Comments tested in sitting Left Dorsiflexion (L4) 4 Good Plantarflexion (S1) 4 Good Comments tested in sitting PT-OP-Q Treatments Start: 06/30/24 11:30 Freq: Status: Active Protocol: Document 07/13/24 08:04 NM (Rec: 07/13/24 08:05 NM [id number]) Gym Equipment Shuttle Recovery B squat Details cued TKE w/o locking knees. Good alignment. Moderate challenge; pain free Resistance 75# (3 navy) Reps/Time 3x10 Therapeutic Exercises Sitting Exercises sit to stand Sitting Exercise Name standard Side bilateral Equipment Used mesh chair, fwd lean Reps/Minutes 10 Comments pain free in hip; cued only for initial scoot to edge of chair Standing Exercises Hip 3 way Standing Exercise Name 1. flex, 2. abd, 3. ext Side bilateral Resistance level 2 band above knees Equipment Used 1 finger support on ballet bar for balance Reps/Minutes 2x10 ea Comments cueing for form and control Other Exercises stretching Other Exercise Name 1. hip flexor, 2. gastrocnemius, 3. soleus Side bilateral Equipment Used 2nd 6 step, hand support for balance; RATNA Reps/Minutes 60 ea Comments reports good stretch Neuro Re-Education Treatment Balance Activities Tandem Details HEP Surface stable Equipment 1 finger support for balance Reps/Duration 2x30 ea Comments Cueing for WS for stability SLS Details HEP Surface stable Equipment 1 finger support for balance Reps/Duration 2x30 ea Comments R stance more challenging. Cued for more knee extension. Demos sway, unable to maintain control w/o at least 1 finger support but improved trunk control and ankle control w/ 1 finger support. Edu to use bathroom counter for hand support Hurdles Surface stable Reps/Duration 4 sets x 6 hurdles ea Comments 1. fwd reciprocal 2. lateral CGA, prn hand support and PT assist to steady. Prn opp foot placement down during reciprocal stepping. Cueing for larger initial step with lateral hurdles. Clips 1-2 hurdles per round. Cued for control, less heavy foot placement PT-OP-T Assessment and Plan Start: 06/30/24 11:30 Freq: Status: Active Protocol: Document 07/13/24 08:04 NM (Rec: 07/13/24 08:05 NM [id number]) Physical Therapy Assessment Goals Four Impairment not performing HEP Custodial Goal (LTG) Pt will report compliance with HEP at least 3x/wk in order to maximize progression with PT and to transition to maitenance program after discharge LTG Duration 10 weeks Three Impairment pain with stairs Custodial Goal (LTG) Pt will be able to perform at least 14 stairs with one or fewer handrails with pain <3/ 10 in knees in order to demonstrate improved functional mobility and symptom management LTG Duration 10 weeks Two Impairment Penn score 31/56 indicating increased risk of falls, hx of falls Custodial Goal (LTG) Pt will improve Penn balance test score to at least 41/56 in order to demonstrate decreased fall risk and ability to ambulate without assistance LTG Duration 10 weeks One Impairment STS transfers impaired Short Term Goal (STG) Pt will be able to perform at least 10 sit to stands from 21 surface or less with close SBA or better and without UE assistance or compensation in order to demonstrate improved initial standing balance and BLE strength for transfers STG Duration 5 weeks Custodial Goal (LTG) Pt will perform at least 5x STS from 21 height surface or lower without UE assistance or compensation and meet age- related norm of 14.8 sec or less in order to demonstrate improved initial standing balance and BLE strength for transfers LTG Duration 10 weeks Assessment Summary Assessment Good feedback for therapeutic exercise. Challenged by B squat on leg press, moderate intensity but requires cueing for control and to promote TKE due to hamstring tightness. Initiated stretching of hip flexors and calf muscles, no stretching of hamstring to allow continued healing of hamstrings. Continued with addressing trunk control and hip strength for proximal stability via hip 3 way. Able to perform STS from standard chair without UE support, improvement from evaluation; still challenged with eccentric control for last little part of sit and needs cue to scoot forward. During hurdles, pt prn clips radha and requires PT assist or hand support to prevent LOB. Pt would benefit from skilled PT for progressive strengthening and balance training in order to reduce fall risk. Physical Therapy Plan Frequency and Duration Frequency of Treatment 2x/Week Duration of treatment (weeks) 10 Plan of Care Start Date 06/30/24 Plan of Care End Date 09/10/24 Therapeutic Interventions Therapeutic Interventions Balance Training,Gait Training ,Home Exercise Program,Joint Mobilizations,Manual Therapy, Neuromuscular Re-education, Orthotic/Prosthetic Management ,Patient/Caregiver Education, Self-Care/Home Management, Sensory Integration,Soft Tissue Mobilization,Taping, Therapeutic Activities, Therapeutic Exercises Modalities Cold Pack/Ice Massage,Hot Packs Next Visit Focus/Plan Next Note Type Treatment Note Next Visit Plan Add STS to HEP. Balance training. B leg press. no HS stretching at this time. trial HSC in sitting vs prone vs estefani if painful; if painful at buttock, then trial seated heel dig isometrics. Hip 3 way and leg press. Address balance: hurdles, stable/ unstable surfaces Manual to HS, L hips and L knee, STM to lumbar spine Balance training, education on fall reduction strategies POC: global hip/knee/trunk strength, balance, step ups, transfers (trial quadruped and floor transfers)
--- NOTE | 2024-07-16 10:09 | PT-OP ANOTE ---
NO SHOW- PT called and left message for pt about missed appt. Informed pt that this is 1st no show so will be discharged from PT if no shows a second time. PT also offered 1345 appt today 07/16 for pt if he can make it. Otherwise informed of next appt on 07/20 at 1345.
--- NOTE | 2024-07-20 17:20 | PT.OTN ---
Current Diagnoses Pain in left hip (07/20/24) Stiffness of left hip, not elsewhere classified (07/20/24) Stiffness of left knee, not elsewhere classified (07/20/24) Stiffness of other specified joint, not elsewhere classified (07/20/24) Other lack of coordination (07/20/24) Weakness (07/20/24) Physical Therapy Treatment Note PT-OP-A Visit Information Start: 06/30/24 11:30 Freq: Status: Active Protocol: Document 07/20/24 13:54 NBM (Rec: 07/20/24 14:41 NBM [id number]) Out-Patient Physical Therapy Visit Information Visit Information Visit Type Treatment Note Visit Note 01/22 post eval Visit Start Time 13:52 Visit Stop Time 14:35 Visit Number 5 Number of MANAGER OF BROADCAST CONTENT Visits 1 Evaluation Information Evaluation Date 06/30/24 Precautions Precautions Hx of falls PT-OP-B Current Condition Start: 06/30/24 11:30 Freq: Status: Active Protocol: Document 06/30/24 11:31 NM (Rec: 06/30/24 12:32 NM [id number]) Current Condition History of Current Condition Onset Date April 2024 History of Current Condition Pt presents with L hip and knee pain. Pt reports that he fell down the stairs in a hotel, 05/10/24. He fell down 3 -4 steps. He fell onto that L side. He was able to immediately walk afterward but needed assitance to stand, required hand rail. He has had xrays. No other imaging or assessments. He reports pain in hip with sleeping, less with ambulating. He reports his L knee bothers him with walking, stairs. He has a flight of stairs in his home ( 2 flights of about 14), has L hand rail with ascent; has 5-6 steps on front porch with B rails. Pt denies any other falls, no near misses, but he does report a concern about falling due to balance. Lives with . Pt reports has been exercises for his hip ( twisting, side bends, things he's done in past), reports makes him feel better; performed in standing; has also done leg raises on floor (side hip abd). Pt reports that he has also had back pain since the fall, he has been taking icy-hot and tylenol ( recently eliminated). L>R back pain, about waistline, no midline pain. Pt has not had imaging of back. No hx of back pain prior to fall. Reports no numbness/tingling/burning in legs. Reports other day when getting out of boat after rowing, could not move legs and states unable to stand up (from quadruped), needed 2 hand assist to stand. He reports that this was 1st time on hands/knees since fall, states due to friction from unfinished concrete. He can get in/out of boat without problem if holding onto something. Prior Treatments and Tests Radiograph of L hip 05/2024: No acute osseous abnormality Radiograph of L knee 05/2024: No acute osseous abnormality. Small joint effusion. 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 Treatment Goals Patient/Caregiver Goals preferably decreased pain Current Functional Impairments (Reported) Functional Limitations- Mobility/Gait 1 mi during walk (includes hill)- fatigues Functional Limitations- Recreation/ light weight exercise, Hobbies elliptical on occasion (last 3 weeks) PT-OP-C Subjective Start: 06/30/24 11:30 Freq: Status: Active Protocol: Document 07/20/24 13:54 NBM (Rec: 07/20/24 14:41 NBM [id number]) OP-PT Subjective Patient Comments Patient Comments Teddy reports no pain currently , and ex's are going well, but had a few days of the L knee arthritis over the weekend. He felt fine after last session. Balancing on one leg is challenging and he's concerned to keep working on balance. Towards end of treatment session he states confidence is probably 50% of the issue. PT-OP-D Balance Start: 06/30/24 11:30 Freq: Status: Active Protocol: Document 06/30/24 11:31 NM (Rec: 06/30/24 12:32 NM [id number]) Balance Tests Penn Balance Test Penn Balance Test Score 31/56 Single Limb Standing Single Limb- Right 1 sec Single Limb- Left 1 sec PT-OP-E Functional Tests Start: 06/30/24 11:30 Freq: Status: Active Protocol: Document 06/30/24 11:31 NM (Rec: 06/30/24 12:32 NM [id number]) Functional Tests 30 Second Sit to Stand Test Score 11 Comments 21; reports no hip/knee pain, feels better Five Times Sit to Stand Test Score 12 sec Comments 21; reports no hip/knee pain; uses BLE to stab; poor stand balance PT-OP-F Manual Assessment Start: 06/30/24 11:30 Freq: Status: Active Protocol: Document 06/30/24 11:31 NM (Rec: 06/30/24 12:32 NM [id number]) Manual Assessments Soft Tissue Assessment Soft Tissue Mobility Assessment Decreased HS length B Joint Mobility Assessment Joint Mobility Assessment Decreased L hip and knee mobility AROM/PROM but not painful except at end range. Hypomobility of lumbar and SIJ PT-OP-G Mobility & Gait Start: 06/30/24 11:30 Freq: Status: Active Protocol: Document 06/30/24 11:31 NM (Rec: 06/30/24 12:47 NM [id number]) OP Gait Assessment Gait Gait Assistance Required: Independent Distance (Feet) 150 Assistive Devices Assistive Device None Gait Deviations General Gait Pattern Antalgic,Wide Based Gait Factors Limiting Gait Function Factors Limiting Gait Function Decreased Activity Tolerance, Decreased Strength,Limited Range of Motion,Pain,Poor Balance Comments Gait Comments Demos B knee flexion and slight hip flexion with stance . Antalgic gait, wider stance and SALVADOR with B hip ER, L>R PT-OP-J Posture/Palpation/Skin Start: 06/30/24 11:30 Freq: Status: Active Protocol: Document 06/30/24 11:31 NM (Rec: 06/30/24 12:32 NM [id number]) Posture Evaluation Position Standing Head/C-Spine Posture Forward Head L-Spine Posture Increased Lordosis Shoulder Posture (L) Rounded,(R) Rounded Pelvis Posture (L) Rotated Anterior,(L) Iliac Crest Superior Comments Posture Comments Increased knee flexion B, B hip ER L>R Palpation Assessment Location lumbar spine Palpation Details tenderness at L SIJ/PSIS No tenderness at midline L knee Palpation Details Increased bony girth at medial knee Tightness of hamstrings, boggy L hip Palpation Details Tightness at glute Tenderness over lateral- posterior hip near greater trochanter PT-OP-K Range of Motion Start: 06/30/24 11:30 Freq: Status: Active Protocol: Document 06/30/24 11:31 NM (Rec: 06/30/24 12:32 NM [id number]) Lumbar Spine Range of Motion Lumbar Spine Active Percentage Flexion 50 Extension 20 Lateral Flexion Left 50 Lateral Flexion Right 50 Comments 06/30/24: pain with lateral flexion B (L>R) Hip Goniometric Range of Motion Hip Right Flexion w/Knee Flexed 105 Internal Rotation 30 External Rotation 40 Comments HS: 125 deg Left Flexion w/Knee Flexed 105 Internal Rotation 28 External Rotation 30 Comments HS: 140 deg Knee Goniometric Range of Motion Knee Right Flexion Active (degrees) 120 Extension Active (degrees) 5 Left Flexion Active (degrees) 115 Extension Active (degrees) 4 PT-OP-L Special Tests Start: 06/30/24 11:30 Freq: Status: Active Protocol: Document 06/30/24 11:31 NM (Rec: 06/30/24 12:32 NM [id number]) Special Tests Lumbar Spine Special Tests Slump Test Results - Chavira/quadrant Test Results + R Comments local Hip Special Tests Stinchfield Resisted Hip Flexion Test Results + L FADIR Test Results + L Comments posterior hip BILLIE Test Results + L Comments posterior hip PT-OP-M Strength Start: 06/30/24 11:30 Freq: Status: Active Protocol: Document 06/30/24 11:31 NM (Rec: 06/30/24 12:32 NM [id number]) Trunk Strength Trunk Manual Muscle Testing Flexion 3+ Fair+ Extension 3+ Fair+ Rotation Left 3+ Fair+ Rotation Right 3+ Fair+ Lateral Flexion Left 3+ Fair+ Lateral Flexion Right 3+ Fair+ Comments Pain with resisted lateral flexion only Hip Strength Hip Manual Muscle Testing Right Flexion (L2) 4 Good Extension (S1) 3+ Fair+ Abduction 4 Good Adduction 4 Good External Rotation 4 Good Internal Rotation 4 Good Left Flexion (L2) 4- Good- Extension (S1) 3+ Fair+ Abduction 4- Good- Adduction 4- Good- External Rotation 4- Good- Internal Rotation 4- Good- Comments pain with flexion Knee Strength Knee Manual Muscle Testing Right Flexion (S2) 4 Good Extension (L3) 4 Good Comments no pain Left Flexion (S2) 4- Good- Extension (L3) 4- Good- Comments audible crepitus Ankle/Foot Strength Ankle and Foot Manual Muscle Testing Right Dorsiflexion (L4) 4 Good Plantarflexion (S1) 4 Good Comments tested in sitting Left Dorsiflexion (L4) 4 Good Plantarflexion (S1) 4 Good Comments tested in sitting PT-OP-Q Treatments Start: 06/30/24 11:30 Freq: Status: Active Protocol: Document 07/20/24 13:54 [facility] (Rec: 07/20/24 14:41 [facility] [id number]) Therapeutic Exercises Sitting Exercises LAQ Sitting Exercise Name HEP reviewed feels better when I don't hold my breath Side bilateral Resistance AROM Equipment Used 22 plinth, self-monitor TrA medial to ASIS Reps/Minutes 2x10 ea, 1 hold at top Comments cued tall posture, no breathholding; eccentric shakes B hip abduction Sitting Exercise Name HEP: seated clam Side bilateral Resistance level 3 band Reps/Minutes 10 ea Comments cued for form and breath sit to stand Sitting Exercise Name standard Side bilateral Equipment Used plinth 22, fwd lean Reps/Minutes 10 modified to 2x5 Comments cues for fully upright w/ gluteal squeeze, hip hinge, ecc control-feels good Standing Exercises Hip 3 way Standing Exercise Name added to HEP: 1. flex, 2. abd, 3. ext Side bilateral Resistance level 2 band above knees Equipment Used 1 finger support on ballet bar for balance Reps/Minutes x10 ea - challenge increases w / gluteal activation Comments cueing for form and gluteal activation for fully upright posture Heel/Toe raises Standing Exercise Name DF/PF (HEP issued) Side bilateral Resistance AROM Equipment Used handrail for balance support Reps/Minutes 2x10 Comments cues for minimizing a/p rocking>good form side steps Standing Exercise Name HEP (counter top nearby for balance prn) Side bilateral Resistance level 3 band above knees Equipment Used handrail for hand support prn Reps/Minutes 3x10 ft Comments pain free; cued neutral foot position, gluteal activ to increase hip ext Other Exercises stretching Other Exercise Name next session Neuro Re-Education Treatment Balance Activities uneven surfaces Details CGA, GB Surface uneven Equipment therapads (blue>black>blue) leading to 3 blue mat on 4 step and therapods Reps/Duration x4 Comments control improves with cues for upright posture and distant focal point. LOB x1 w/ self- recovery. SLS Details HEP Surface stable Equipment hand support to initiate then hovering Reps/Duration multiple trials Comments no AIRLINE RESERVATIONIST: R stance improves from 3s to 6s with cues for gluteal activation. L stance 2 -3s. Self-Care/Home Management Treatment Education Patient Education Body Mechanics,Home Exercise Program,Posture Other Education Edu to pt w/ visual aid re: TrA activation with breath to improve low back pain. Pt i/s in self-monitoring TrA medial to ASIS in sitting w/ LAQ and breathwork. PT-OP-T Assessment and Plan Start: 06/30/24 11:30 Freq: Status: Active Protocol: Document 07/20/24 13:54 NB (Rec: 07/20/24 14:41 [facility] [id number]) Physical Therapy Assessment Goals Four Impairment not performing HEP Custodial Goal (LTG) Pt will report compliance with HEP at least 3x/wk in order to maximize progression with PT and to transition to maitenance program after discharge LTG Duration 10 weeks Three Impairment pain with stairs Custodial Goal (LTG) Pt will be able to perform at least 14 stairs with one or fewer handrails with pain <3/ 10 in knees in order to demonstrate improved functional mobility and symptom management LTG Duration 10 weeks Two Impairment Penn score 31/56 indicating increased risk of falls, hx of falls Power Plant Installer Goal (LTG) Pt will improve Penn balance test score to at least 41/56 in order to demonstrate decreased fall risk and ability to ambulate without assistance LTG Duration 10 weeks One Impairment STS transfers impaired Short Term Goal (STG) Pt will be able to perform at least 10 sit to stands from 21 surface or less with close SBA or better and without UE assistance or compensation in order to demonstrate improved initial standing balance and BLE strength for transfers STG Duration 5 weeks Custodial Goal (LTG) Pt will perform at least 5x STS from 21 height surface or lower without UE assistance or compensation and meet age- related norm of 14.8 sec or less in order to demonstrate improved initial standing balance and BLE strength for transfers LTG Duration 10 weeks Assessment Summary Assessment Treatment focus on LE stregthening and core stability to improve low back pain, and balance with ambulation on uneven surfaces today. Pt requires cues with Sit to Stand for coming fully upright w/gluteal squeeze, using hip hinge and eccentric control; his form improves with repetition unless fatigued so he is encouraged to perform STS 2x5 instead of x10 to maintain form throughout. He requires consistent cueing for gluteal activation and breathwork but demos improving self-awareness with both with self- correction during treatment session. Resisted hip 3-way is added to HEP - HO given. R SL stance improves from 3s to 6s with cues for gluteal activation. He requires cues for upright posture and distant focal point after which he is able to comple ambulation on uneven surfaces on therapads and blue mat with varying surfaces underneath with 1 loss of balance on black therapad and appropriate self-recovery. He expresses increasing confidence with balance end of session. Physical Therapy Plan Frequency and Duration Frequency of Treatment 2x/Week Duration of treatment (weeks) 10 Plan of Care Start Date 06/30/24 Plan of Care End Date 09/10/24 Therapeutic Interventions Therapeutic Interventions Balance Training,Gait Training ,Home Exercise Program,Joint Mobilizations,Manual Therapy, Neuromuscular Re-education, Orthotic/Prosthetic Management ,Patient/Caregiver Education, Self-Care/Home Management, Sensory Integration,Soft Tissue Mobilization,Taping, Therapeutic Activities, Therapeutic Exercises Modalities Cold Pack/Ice Massage,Hot Packs Next Visit Focus/Plan Next Note Type Treatment Note Next Visit Plan Review 07/13 stretching (hip flexor, calves) POC: Add STS to HEP. Balance training. B leg press. no HS stretching at this time. trial HSC in sitting vs prone vs estefani if painful; if painful at buttock, then trial seated heel dig isometrics. Hip 3 way and leg press. Address balance: hurdles, stable/ unstable surfaces Manual to HS, L hips and L knee, STM to lumbar spine Balance training, education on fall reduction strategies POC: global hip/knee/trunk strength, balance, step ups, transfers (trial quadruped and floor transfers)
--- NOTE | 2024-07-22 15:26 | PT.OTN ---
Current Diagnoses Pain in left hip (07/22/24) Stiffness of left hip, not elsewhere classified (07/22/24) Stiffness of left knee, not elsewhere classified (07/22/24) Stiffness of other specified joint, not elsewhere classified (07/22/24) Other lack of coordination (07/22/24) Weakness (07/22/24) Physical Therapy Treatment Note PT-OP-A Visit Information Start: 06/30/24 11:30 Freq: Status: Active Protocol: Document 07/22/24 14:32 NM (Rec: 07/22/24 15:26 NM [id number]) Out-Patient Physical Therapy Visit Information Visit Information Visit Type Treatment Note Visit Note 02/22 post eval Visit Start Time 14:33 Visit Stop Time 15:13 Visit Number 6 Evaluation Information Evaluation Date 06/30/24 Precautions Precautions Hx of falls PT-OP-B Current Condition Start: 06/30/24 11:30 Freq: Status: Active Protocol: Document 06/30/24 11:31 NM (Rec: 06/30/24 12:32 NM [id number]) Current Condition History of Current Condition Onset Date April 2024 History of Current Condition Pt presents with L hip and knee pain. Pt reports that he fell down the stairs in a hotel, 05/10/24. He fell down 3 -4 steps. He fell onto that L side. He was able to immediately walk afterward but needed assitance to stand, required hand rail. He has had xrays. No other imaging or assessments. He reports pain in hip with sleeping, less with ambulating. He reports his L knee bothers him with walking, stairs. He has a flight of stairs in his home ( 2 flights of about 14), has L hand rail with ascent; has 5-6 steps on front porch with B rails. Pt denies any other falls, no near misses, but he does report a concern about falling due to balance. Lives with . Pt reports has been exercises for his hip ( twisting, side bends, things he's done in past), reports makes him feel better; performed in standing; has also done leg raises on floor (side hip abd). Pt reports that he has also had back pain since the fall, he has been taking icy-hot and tylenol ( recently eliminated). L>R back pain, about waistline, no midline pain. Pt has not had imaging of back. No hx of back pain prior to fall. Reports no numbness/tingling/burning in legs. Reports other day when getting out of boat after rowing, could not move legs and states unable to stand up (from quadruped), needed 2 hand assist to stand. He reports that this was 1st time on hands/knees since fall, states due to friction from unfinished concrete. He can get in/out of boat without problem if holding onto something. Prior Treatments and Tests Radiograph of L hip 05/2024: No acute osseous abnormality Radiograph of L knee 05/2024: No acute osseous abnormality. Small joint effusion. 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 Treatment Goals Patient/Caregiver Goals preferably decreased pain Current Functional Impairments (Reported) Functional Limitations- Mobility/Gait 1 mi during walk (includes hill)- fatigues Functional Limitations- Recreation/ light weight exercise, Hobbies elliptical on occasion (last 3 weeks) PT-OP-C Subjective Start: 06/30/24 11:30 Freq: Status: Active Protocol: Document 07/22/24 14:32 NM (Rec: 07/22/24 15:26 NM [id number]) OP-PT Subjective Patient Comments Patient Comments Pt reports increase in arthritic pain on L hip and knee today. States has it worked out now, but did not do HEP due to pain. Started off at 6/10 (reports worse with sleeping), reprots down to a 3 /10. Exercises are helping and do not cause pain. Thinks due to sleeping. PT-OP-D Balance Start: 06/30/24 11:30 Freq: Status: Active Protocol: Document 06/30/24 11:31 NM (Rec: 06/30/24 12:32 NM [id number]) Balance Tests Penn Balance Test Penn Balance Test Score 31/56 Single Limb Standing Single Limb- Right 1 sec Single Limb- Left 1 sec PT-OP-E Functional Tests Start: 06/30/24 11:30 Freq: Status: Active Protocol: Document 06/30/24 11:31 NM (Rec: 06/30/24 12:32 NM [id number]) Functional Tests 30 Second Sit to Stand Test Score 11 Comments 21; reports no hip/knee pain, feels better Five Times Sit to Stand Test Score 12 sec Comments 21; reports no hip/knee pain; uses BLE to stab; poor stand balance PT-OP-F Manual Assessment Start: 06/30/24 11:30 Freq: Status: Active Protocol: Document 06/30/24 11:31 NM (Rec: 06/30/24 12:32 NM [id number]) Manual Assessments Soft Tissue Assessment Soft Tissue Mobility Assessment Decreased HS length B Joint Mobility Assessment Joint Mobility Assessment Decreased L hip and knee mobility AROM/PROM but not painful except at end range. Hypomobility of lumbar and SIJ PT-OP-G Mobility & Gait Start: 06/30/24 11:30 Freq: Status: Active Protocol: Document 06/30/24 11:31 NM (Rec: 06/30/24 12:47 NM [id number]) OP Gait Assessment Gait Gait Assistance Required: Independent Distance (Feet) 150 Assistive Devices Assistive Device None Gait Deviations General Gait Pattern Antalgic,Wide Based Gait Factors Limiting Gait Function Factors Limiting Gait Function Decreased Activity Tolerance, Decreased Strength,Limited Range of Motion,Pain,Poor Balance Comments Gait Comments Demos B knee flexion and slight hip flexion with stance . Antalgic gait, wider stance and SALVADOR with B hip ER, L>R PT-OP-J Posture/Palpation/Skin Start: 06/30/24 11:30 Freq: Status: Active Protocol: Document 06/30/24 11:31 NM (Rec: 06/30/24 12:32 NM [id number]) Posture Evaluation Position Standing Head/C-Spine Posture Forward Head L-Spine Posture Increased Lordosis Shoulder Posture (L) Rounded,(R) Rounded Pelvis Posture (L) Rotated Anterior,(L) Iliac Crest Superior Comments Posture Comments Increased knee flexion B, B hip ER L>R Palpation Assessment Location lumbar spine Palpation Details tenderness at L SIJ/PSIS No tenderness at midline L knee Palpation Details Increased bony girth at medial knee Tightness of hamstrings, boggy L hip Palpation Details Tightness at glute Tenderness over lateral- posterior hip near greater trochanter PT-OP-K Range of Motion Start: 06/30/24 11:30 Freq: Status: Active Protocol: Document 06/30/24 11:31 NM (Rec: 06/30/24 12:32 NM [id number]) Lumbar Spine Range of Motion Lumbar Spine Active Percentage Flexion 50 Extension 20 Lateral Flexion Left 50 Lateral Flexion Right 50 Comments 06/30/24: pain with lateral flexion B (L>R) Hip Goniometric Range of Motion Hip Right Flexion w/Knee Flexed 105 Internal Rotation 30 External Rotation 40 Comments HS: 125 deg Left Flexion w/Knee Flexed 105 Internal Rotation 28 External Rotation 30 Comments HS: 140 deg Knee Goniometric Range of Motion Knee Right Flexion Active (degrees) 120 Extension Active (degrees) 5 Left Flexion Active (degrees) 115 Extension Active (degrees) 4 PT-OP-L Special Tests Start: 06/30/24 11:30 Freq: Status: Active Protocol: Document 06/30/24 11:31 NM (Rec: 06/30/24 12:32 NM [id number]) Special Tests Lumbar Spine Special Tests Slump Test Results - Chavira/quadrant Test Results + R Comments local Hip Special Tests Stinchfield Resisted Hip Flexion Test Results + L FADIR Test Results + L Comments posterior hip BILLIE Test Results + L Comments posterior hip PT-OP-M Strength Start: 06/30/24 11:30 Freq: Status: Active Protocol: Document 06/30/24 11:31 NM (Rec: 06/30/24 12:32 NM [id number]) Trunk Strength Trunk Manual Muscle Testing Flexion 3+ Fair+ Extension 3+ Fair+ Rotation Left 3+ Fair+ Rotation Right 3+ Fair+ Lateral Flexion Left 3+ Fair+ Lateral Flexion Right 3+ Fair+ Comments Pain with resisted lateral flexion only Hip Strength Hip Manual Muscle Testing Right Flexion (L2) 4 Good Extension (S1) 3+ Fair+ Abduction 4 Good Adduction 4 Good External Rotation 4 Good Internal Rotation 4 Good Left Flexion (L2) 4- Good- Extension (S1) 3+ Fair+ Abduction 4- Good- Adduction 4- Good- External Rotation 4- Good- Internal Rotation 4- Good- Comments pain with flexion Knee Strength Knee Manual Muscle Testing Right Flexion (S2) 4 Good Extension (L3) 4 Good Comments no pain Left Flexion (S2) 4- Good- Extension (L3) 4- Good- Comments audible crepitus Ankle/Foot Strength Ankle and Foot Manual Muscle Testing Right Dorsiflexion (L4) 4 Good Plantarflexion (S1) 4 Good Comments tested in sitting Left Dorsiflexion (L4) 4 Good Plantarflexion (S1) 4 Good Comments tested in sitting PT-OP-Q Treatments Start: 06/30/24 11:30 Freq: Status: Active Protocol: Document 11/07/24 14:32 NM (Rec: 07/22/24 15:26 NM [id number]) Gym Equipment Shuttle Recovery B squat Details level 2 band at thighs; feels in quad Resistance 75# (3 navy) Reps/Time 2x15 Therapeutic Exercises Sitting Exercises sit to stand Sitting Exercise Name standard Side bilateral Equipment Used plinth 22, fwd lean Reps/Minutes 5 today with mod cues for scoot fwd prior to stand- demos retropulsion Comments cues for fully upright w/ gluteal squeeze, hip hinge, ecc control-feels good Standing Exercises step ups Standing Exercise Name 1. 6 step, 2. 4 lateral step up Side bilateral Equipment Used 2 finger support for balance Reps/Minutes 1. 2x10 ea- cued for foot clearnce , 2. 10 ea Comments no hip or knee pain L side; 1 instance LOB d/t catch toe w/o fall Manual Therapy Treatment Consent Patient gave verbal consent for manual Yes treatment Soft Tissue Mobilization L hip Body Location TFL, quad, adductors, prox HS, glutes/piriformis Mobilization Type Rolling,Strumming,Trigger Point Release,Other Intensity/Depth superficial-moderate Body Position supine-sidelying Comments Several trigger points at quad , adductors and glutes. Reduced but not eliminated with manual treatment Neuro Re-Education Treatment Balance Activities Changing SALVADOR Surface stable Equipment hands hovering over //bar siwth prn hand contact Reps/Duration 2 x 10 ft ea direction Comments 1. tandem walk 2. carioca 3. retro walk 4. tip toe walk CGA-close SBA. Tandem most challenging. Cued slight trunk flex with retro walk to prevent post lean shuttle balance Details A/P, M/L Surface unstable Equipment level red Reps/Duration 3 min ea Comments Challenging anita with reduced visual contact. Demos strong post lean in A/P and strong L lean in M/L. M/L more challenging. Cueing for weight shift, e.g. push harder through your toes. Prn 2 hand support > 0-1 hand support. CGA- min A PT-OP-T Assessment and Plan Start: 06/30/24 11:30 Freq: Status: Active Protocol: Document 07/22/24 14:32 NM (Rec: 07/22/24 15:26 NM [id number]) Physical Therapy Assessment Goals Four Impairment not performing HEP Halfway Goal (LTG) Pt will report compliance with HEP at least 3x/wk in order to maximize progression with PT and to transition to [facility] program after discharge 07/22/24: performing HEP daily LTG Duration 10 weeks Three Impairment pain with stairs Loader Helper Goal (LTG) Pt will be able to perform at least 14 stairs with one or fewer handrails with pain <3/ 10 in knees in order to demonstrate improved functional mobility and symptom management 07/22/24: performed 2 step ups on LLE with 1 hand support, no knee pain LTG Duration 10 weeks Two Impairment Penn score 31/56 indicating increased risk of falls, hx of falls Halfway Goal (LTG) Pt will improve Penn balance test score to at least 41/56 in order to demonstrate decreased fall risk and ability to ambulate without assistance LTG Duration 10 weeks One Impairment STS transfers impaired Short Term Goal (STG) Pt will be able to perform at least 10 sit to stands from 21 surface or less with close SBA or better and without UE assistance or compensation in order to demonstrate improved initial standing balance and BLE strength for transfers STG Duration 5 weeks Loader Helper Goal (LTG) Pt will perform at least 5x STS from 21 height surface or lower without UE assistance or compensation and meet age- related norm of 14.8 sec or less in order to demonstrate improved initial standing balance and BLE strength for transfers LTG Duration 10 weeks Assessment Summary Assessment Pt reports reduction in hip and knee pain from 3/10 to 0/ 10 at end of session. Trialed step ups for continued glute/ quad strength and balance training. Requires at least 2 finger assist for balance and moderate cues for foot clearance to avoid catching toes. Several instances near LOB with pt able to catch self using plinth or PT assist to stabilize with STS. With cueing for knee alignment, no pain during lateral step ups or leg press. Continued with balance training on unstable surfaces and with changing SALVADOR . Frontal plane motions and perturbations most challenging for pt to react and anticipate weight shifts. Pt would continue to benefit from skilled PT for progressive BLE strengthening, flexibility , and gait/balance training in order to improve symptom management and reduce fall risk. Physical Therapy Plan Frequency and Duration Frequency of Treatment 2x/Week Duration of treatment (weeks) 10 Plan of Care Start Date 06/30/24 Plan of Care End Date 09/10/24 Therapeutic Interventions Therapeutic Interventions Balance Training,Gait Training ,Home Exercise Program,Joint Mobilizations,Manual Therapy, Neuromuscular Re-education, Orthotic/Prosthetic Management ,Patient/Caregiver Education, Self-Care/Home Management, Sensory Integration,Soft Tissue Mobilization,Taping, Therapeutic Activities, Therapeutic Exercises Modalities Cold Pack/Ice Massage,Hot Packs Next Visit Focus/Plan Next Note Type Treatment Note Next Visit Plan Assess evens to step ups/leg press. Add step ups with hand support to HEP. Cont with glute/quad strength and global BLE strength. Review 07/13 stretching (hip flexor, calves ). Balance training w/ hurdles , bungee, unstable surfaces, changing SALVADOR POC: Add STS to HEP. Balance training. B leg press. no HS stretching at this time. Hip 3 way and leg press. Address balance: hurdles, stable/ unstable surfaces Manual to HS, L hips and L knee, STM to lumbar spine Balance training, education on fall reduction strategies POC: global hip/knee/trunk strength, balance, step ups, transfers (trial quadruped and floor transfers)
--- NOTE | 2024-07-27 14:54 | PT.OTN ---
Current Diagnoses Pain in left hip (07/27/24) Stiffness of left hip, not elsewhere classified (07/27/24) Stiffness of left knee, not elsewhere classified (07/27/24) Stiffness of other specified joint, not elsewhere classified (07/27/24) Other lack of coordination (07/27/24) Weakness (07/27/24) Physical Therapy Treatment Note PT-OP-A Visit Information Start: 06/30/24 11:30 Freq: Status: Active Protocol: Document 07/27/24 13:53 SW (Rec: 07/27/24 14:54 SW [id number]) Out-Patient Physical Therapy Visit Information Visit Information Visit Type Treatment Note Visit Note 03/24 Visit Start Time 13:47 Visit Stop Time 14:27 Visit Number 7 Number of THRILL PERFORMER Visits 1 Precautions Precautions Hx of falls PT-OP-B Current Condition Start: 06/30/24 11:30 Freq: Status: Active Protocol: Document 06/30/24 11:31 NM (Rec: 06/30/24 12:32 NM [id number]) Current Condition History of Current Condition Onset Date April 2024 History of Current Condition Pt presents with L hip and knee pain. Pt reports that he fell down the stairs in a hotel, 05/10/24. He fell down 3 -4 steps. He fell onto that L side. He was able to immediately walk afterward but needed assitance to stand, required hand rail. He has had xrays. No other imaging or assessments. He reports pain in hip with sleeping, less with ambulating. He reports his L knee bothers him with walking, stairs. He has a flight of stairs in his home ( 2 flights of about 14), has L hand rail with ascent; has 5-6 steps on front porch with B rails. Pt denies any other falls, no near misses, but he does report a concern about falling due to balance. Lives with . Pt reports has been exercises for his hip ( twisting, side bends, things he's done in past), reports makes him feel better; performed in standing; has also done leg raises on floor (side hip abd). Pt reports that he has also had back pain since the fall, he has been taking icy-hot and tylenol ( recently eliminated). L>R back pain, about waistline, no midline pain. Pt has not had imaging of back. No hx of back pain prior to fall. Reports no numbness/tingling/burning in legs. Reports other day when getting out of boat after rowing, could not move legs and states unable to stand up (from quadruped), needed 2 hand assist to stand. He reports that this was 1st time on hands/knees since fall, states due to friction from unfinished concrete. He can get in/out of boat without problem if holding onto something. Prior Treatments and Tests Radiograph of L hip 05/2024: No acute osseous abnormality Radiograph of L knee 05/2024: No acute osseous abnormality. Small joint effusion. 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 Treatment Goals Patient/Caregiver Goals preferably decreased pain Current Functional Impairments (Reported) Functional Limitations- Mobility/Gait 1 mi during walk (includes hill)- fatigues Functional Limitations- Recreation/ light weight exercise, Hobbies elliptical on occasion (last 3 weeks) PT-OP-C Subjective Start: 06/30/24 11:30 Freq: Status: Active Protocol: Document 07/27/24 13:53 SW (Rec: 07/27/24 14:52 SW [id number]) OP-PT Subjective Patient Comments Patient Comments Pt reports not as much ache in hip/knee, occasionally it will pop up, but does not last long. PT-OP-D Balance Start: 06/30/24 11:30 Freq: Status: Active Protocol: Document 06/30/24 11:31 NM (Rec: 06/30/24 12:32 NM [id number]) Balance Tests Penn Balance Test Penn Balance Test Score 31/56 Single Limb Standing Single Limb- Right 1 sec Single Limb- Left 1 sec PT-OP-E Functional Tests Start: 06/30/24 11:30 Freq: Status: Active Protocol: Document 06/30/24 11:31 NM (Rec: 06/30/24 12:32 NM [id number]) Functional Tests 30 Second Sit to Stand Test Score 11 Comments 21; reports no hip/knee pain, feels better Five Times Sit to Stand Test Score 12 sec Comments 21; reports no hip/knee pain; uses BLE to stab; poor stand balance PT-OP-F Manual Assessment Start: 06/30/24 11:30 Freq: Status: Active Protocol: Document 06/30/24 11:31 NM (Rec: 06/30/24 12:32 NM [id number]) Manual Assessments Soft Tissue Assessment Soft Tissue Mobility Assessment Decreased HS length B Joint Mobility Assessment Joint Mobility Assessment Decreased L hip and knee mobility AROM/PROM but not painful except at end range. Hypomobility of lumbar and SIJ PT-OP-G Mobility & Gait Start: 06/30/24 11:30 Freq: Status: Active Protocol: Document 06/30/24 11:31 NM (Rec: 06/30/24 12:47 NM [id number]) OP Gait Assessment Gait Gait Assistance Required: Independent Distance (Feet) 150 Assistive Devices Assistive Device None Gait Deviations General Gait Pattern Antalgic,Wide Based Gait Factors Limiting Gait Function Factors Limiting Gait Function Decreased Activity Tolerance, Decreased Strength,Limited Range of Motion,Pain,Poor Balance Comments Gait Comments Demos B knee flexion and slight hip flexion with stance . Antalgic gait, wider stance and SALVADOR with B hip ER, L>R PT-OP-J Posture/Palpation/Skin Start: 06/30/24 11:30 Freq: Status: Active Protocol: Document 06/30/24 11:31 NM (Rec: 06/30/24 12:32 NM [id number]) Posture Evaluation Position Standing Head/C-Spine Posture Forward Head L-Spine Posture Increased Lordosis Shoulder Posture (L) Rounded,(R) Rounded Pelvis Posture (L) Rotated Anterior,(L) Iliac Crest Superior Comments Posture Comments Increased knee flexion B, B hip ER L>R Palpation Assessment Location lumbar spine Palpation Details tenderness at L SIJ/PSIS No tenderness at midline L knee Palpation Details Increased bony girth at medial knee Tightness of hamstrings, boggy L hip Palpation Details Tightness at glute Tenderness over lateral- posterior hip near greater trochanter PT-OP-K Range of Motion Start: 06/30/24 11:30 Freq: Status: Active Protocol: Document 06/30/24 11:31 NM (Rec: 06/30/24 12:32 NM [id number]) Lumbar Spine Range of Motion Lumbar Spine Active Percentage Flexion 50 Extension 20 Lateral Flexion Left 50 Lateral Flexion Right 50 Comments 06/30/24: pain with lateral flexion B (L>R) Hip Goniometric Range of Motion Hip Right Flexion w/Knee Flexed 105 Internal Rotation 30 External Rotation 40 Comments HS: 125 deg Left Flexion w/Knee Flexed 105 Internal Rotation 28 External Rotation 30 Comments HS: 140 deg Knee Goniometric Range of Motion Knee Right Flexion Active (degrees) 120 Extension Active (degrees) 5 Left Flexion Active (degrees) 115 Extension Active (degrees) 4 PT-OP-L Special Tests Start: 06/30/24 11:30 Freq: Status: Active Protocol: Document 06/30/24 11:31 NM (Rec: 06/30/24 12:32 NM [id number]) Special Tests Lumbar Spine Special Tests Slump Test Results - Chavira/quadrant Test Results + R Comments local Hip Special Tests Stinchfield Resisted Hip Flexion Test Results + L FADIR Test Results + L Comments posterior hip BILLIE Test Results + L Comments posterior hip PT-OP-M Strength Start: 06/30/24 11:30 Freq: Status: Active Protocol: Document 06/30/24 11:31 NM (Rec: 06/30/24 12:32 NM [id number]) Trunk Strength Trunk Manual Muscle Testing Flexion 3+ Fair+ Extension 3+ Fair+ Rotation Left 3+ Fair+ Rotation Right 3+ Fair+ Lateral Flexion Left 3+ Fair+ Lateral Flexion Right 3+ Fair+ Comments Pain with resisted lateral flexion only Hip Strength Hip Manual Muscle Testing Right Flexion (L2) 4 Good Extension (S1) 3+ Fair+ Abduction 4 Good Adduction 4 Good External Rotation 4 Good Internal Rotation 4 Good Left Flexion (L2) 4- Good- Extension (S1) 3+ Fair+ Abduction 4- Good- Adduction 4- Good- External Rotation 4- Good- Internal Rotation 4- Good- Comments pain with flexion Knee Strength Knee Manual Muscle Testing Right Flexion (S2) 4 Good Extension (L3) 4 Good Comments no pain Left Flexion (S2) 4- Good- Extension (L3) 4- Good- Comments audible crepitus Ankle/Foot Strength Ankle and Foot Manual Muscle Testing Right Dorsiflexion (L4) 4 Good Plantarflexion (S1) 4 Good Comments tested in sitting Left Dorsiflexion (L4) 4 Good Plantarflexion (S1) 4 Good Comments tested in sitting PT-OP-Q Treatments Start: 06/30/24 11:30 Freq: Status: Active Protocol: Document 07/27/24 13:53 SW (Rec: 07/27/24 14:52 SW [id number]) Gym Equipment Shuttle Recovery B squat Details level 2 band at thighs; feels in quad Resistance 75# (3 navy) Shuttle Recovery Platform Stable Reps/Time 2x15 Therapeutic Exercises Standing Exercises step ups Standing Exercise Name 1. 6 step, 2. 4 lateral step up Side bilateral Equipment Used 2 finger support for balance Reps/Minutes 1. 2x10 ea- cued for foot clearnce , 2. 10 ea Comments no hip or knee pain L side; 1 instance LOB d/t catch toe w/o fall Hip 3 way Standing Exercise Name HEP: 1. flex, 2. abd, 3. ext Side bilateral Resistance level 2 band above knees Equipment Used finger support @ rail Reps/Minutes x10 ea - challenge increases w / gluteal activation Comments cueing for form and gluteal activation for fully upright posture Heel/Toe raises Standing Exercise Name DF/PF (HEP) reviewed Side bilateral Resistance AROM Equipment Used handrail for balance support Reps/Minutes 2x10 Comments cues for minimizing a/p rocking>good form side steps Standing Exercise Name HEP (counter top nearby for balance prn) Side bilateral Resistance level 3 band above knees Equipment Used handrail for hand support prn Reps/Minutes 3x10 ft Comments pain free; cued neutral foot position, gluteal activ to increase hip ext Other Exercises stretching Other Exercise Name Hip flexor, gastroc, soleus ( issued HEP HO) PT-OP-T Assessment and Plan Start: 06/30/24 11:30 Freq: Status: Active Protocol: Document 07/27/24 13:53 (Rec: 07/27/24 14:52 [id number]) Physical Therapy Assessment Goals Four Impairment not performing HEP Financial Operations Analyst Goal (LTG) Pt will report compliance with HEP at least 3x/wk in order to maximize progression with PT and to transition to maitenance program after discharge 07/22/24: performing HEP daily LTG Duration 10 weeks Three Impairment pain with stairs Financial Operations Analyst Goal (LTG) Pt will be able to perform at least 14 stairs with one or fewer handrails with pain <3/ 10 in knees in order to demonstrate improved functional mobility and symptom management 07/22/24: performed 2 step ups on LLE with 1 hand support, no knee pain LTG Duration 10 weeks Two Impairment Penn score 31/56 indicating increased risk of falls, hx of falls Usp Goal (LTG) Pt will improve Penn balance test score to at least 41/56 in order to demonstrate decreased fall risk and ability to ambulate without assistance LTG Duration 10 weeks One Impairment STS transfers impaired Short Term Goal (STG) Pt will be able to perform at least 10 sit to stands from 21 surface or less with close SBA or better and without UE assistance or compensation in order to demonstrate improved initial standing balance and BLE strength for transfers STG Duration 5 weeks Usp Goal (LTG) Pt will perform at least 5x STS from 21 height surface or lower without UE assistance or compensation and meet age- related norm of 14.8 sec or less in order to demonstrate improved initial standing balance and BLE strength for transfers LTG Duration 10 weeks Assessment Summary Assessment Pt tolerated leg press and step ups initiated last session well, Issued HEP HO for steps ups, instructed pt to use UE for safety with balance. Pt reports hip and knee feeling less ache, does pop up occasionally, but does not last long. Pt tolerated session well today with no increase in pain post session. Issued HEP HO for stair stretch today, pt reports feels more stretch with cues to tilt pelvis posteriorly ( tucking tail). Pt is doing well with HEP, reports good compliance at home. Plan to assess pt tolerance to new HEP exercises today, and focus on balance next session as able. Physical Therapy Plan Frequency and Duration Frequency of Treatment 2x/Week Duration of treatment (weeks) 10 Plan of Care Start Date 06/30/24 Plan of Care End Date 09/10/24 Therapeutic Interventions Therapeutic Interventions Balance Training,Gait Training ,Home Exercise Program,Joint Mobilizations,Manual Therapy, Neuromuscular Re-education, Orthotic/Prosthetic Management ,Patient/Caregiver Education, Self-Care/Home Management, Sensory Integration,Soft Tissue Mobilization,Taping, Therapeutic Activities, Therapeutic Exercises Modalities Cold Pack/Ice Massage,Hot Packs Next Visit Focus/Plan Next Note Type Treatment Note Next Visit Plan Next session focus on balance challenges as able, assess tolerance to new HEP exercises . Cont with glute/quad strength and global BLE strength. Review 07/13 stretching (hip flexor, calves). Balance training w/ hurdles, bungee, unstable surfaces, changing SALVADOR POC: Add STS to HEP. Balance training. B leg press. no HS stretching at this time. Hip 3 way and leg press. Address balance: hurdles, stable/ unstable surfaces Manual to HS, L hips and L knee, STM to lumbar spine Balance training, education on fall reduction strategies POC: global hip/knee/trunk strength, balance, step ups, transfers (trial quadruped and floor transfers)
--- NOTE | 2024-07-29 15:38 | PT.OTN ---
Current Diagnoses Pain in left hip (07/29/24) Stiffness of left hip, not elsewhere classified (07/29/24) Stiffness of left knee, not elsewhere classified (07/29/24) Stiffness of other specified joint, not elsewhere classified (07/29/24) Other lack of coordination (07/29/24) Weakness (07/29/24) Physical Therapy Treatment Note PT-OP-A Visit Information Start: 06/30/24 11:30 Freq: Status: Active Protocol: Document 07/29/24 13:47 NM (Rec: 07/29/24 14:32 NM [id number]) Out-Patient Physical Therapy Visit Information Visit Information Visit Type Treatment Note Visit Start Time 13:48 Visit Stop Time 14:30 Visit Number 04/24 Evaluation Information Evaluation Date 06/30/24 Precautions Precautions Hx of falls PT-OP-B Current Condition Start: 06/30/24 11:30 Freq: Status: Active Protocol: Document 06/30/24 11:31 NM (Rec: 06/30/24 12:32 NM [id number]) Current Condition History of Current Condition Onset Date April 2024 History of Current Condition Pt presents with L hip and knee pain. Pt reports that he fell down the stairs in a hotel, 05/10/24. He fell down 3 -4 steps. He fell onto that L side. He was able to immediately walk afterward but needed assitance to stand, required hand rail. He has had xrays. No other imaging or assessments. He reports pain in hip with sleeping, less with ambulating. He reports his L knee bothers him with walking, stairs. He has a flight of stairs in his home ( 2 flights of about 14), has L hand rail with ascent; has 5-6 steps on front porch with B rails. Pt denies any other falls, no near misses, but he does report a concern about falling due to balance. Lives with . Pt reports has been exercises for his hip ( twisting, side bends, things he's done in past), reports makes him feel better; performed in standing; has also done leg raises on floor (side hip abd). Pt reports that he has also had back pain since the fall, he has been taking icy-hot and tylenol ( recently eliminated). L>R back pain, about waistline, no midline pain. Pt has not had imaging of back. No hx of back pain prior to fall. Reports no numbness/tingling/burning in legs. Reports other day when getting out of boat after rowing, could not move legs and states unable to stand up (from quadruped), needed 2 hand assist to stand. He reports that this was 1st time on hands/knees since fall, states due to friction from unfinished concrete. He can get in/out of boat without problem if holding onto something. Prior Treatments and Tests Radiograph of L hip 05/2024: No acute osseous abnormality Radiograph of L knee 05/2024: No acute osseous abnormality. Small joint effusion. 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 Treatment Goals Patient/Caregiver Goals preferably decreased pain Current Functional Impairments (Reported) Functional Limitations- Mobility/Gait 1 mi during walk (includes hill)- fatigues Functional Limitations- Recreation/ light weight exercise, Hobbies elliptical on occasion (last 3 weeks) PT-OP-C Subjective Start: 06/30/24 11:30 Freq: Status: Active Protocol: Document 07/29/24 13:47 NM (Rec: 07/29/24 14:32 NM [id number]) OP-PT Subjective Patient Comments Patient Comments Pt reports that his hip/knee doing better. States balance is the same. Pt reports improvement in ability to get out of chairs, walking more comfortably. No pain with stairs PT-OP-D Balance Start: 06/30/24 11:30 Freq: Status: Active Protocol: Document 06/30/24 11:31 NM (Rec: 06/30/24 12:32 NM [id number]) Balance Tests Penn Balance Test Penn Balance Test Score 31/56 Single Limb Standing Single Limb- Right 1 sec Single Limb- Left 1 sec PT-OP-E Functional Tests Start: 06/30/24 11:30 Freq: Status: Active Protocol: Document 06/30/24 11:31 NM (Rec: 06/30/24 12:32 NM [id number]) Functional Tests 30 Second Sit to Stand Test Score 11 Comments 21; reports no hip/knee pain, feels better Five Times Sit to Stand Test Score 12 sec Comments 21; reports no hip/knee pain; uses BLE to stab; poor stand balance PT-OP-F Manual Assessment Start: 06/30/24 11:30 Freq: Status: Active Protocol: Document 06/30/24 11:31 NM (Rec: 06/30/24 12:32 NM [id number]) Manual Assessments Soft Tissue Assessment Soft Tissue Mobility Assessment Decreased HS length B Joint Mobility Assessment Joint Mobility Assessment Decreased L hip and knee mobility AROM/PROM but not painful except at end range. Hypomobility of lumbar and SIJ PT-OP-G Mobility & Gait Start: 06/30/24 11:30 Freq: Status: Active Protocol: Document 06/30/24 11:31 NM (Rec: 06/30/24 12:47 NM [id number]) OP Gait Assessment Gait Gait Assistance Required: Independent Distance (Feet) 150 Assistive Devices Assistive Device None Gait Deviations General Gait Pattern Antalgic,Wide Based Gait Factors Limiting Gait Function Factors Limiting Gait Function Decreased Activity Tolerance, Decreased Strength,Limited Range of Motion,Pain,Poor Balance Comments Gait Comments Demos B knee flexion and slight hip flexion with stance . Antalgic gait, wider stance and SALVADOR with B hip ER, L>R PT-OP-J Posture/Palpation/Skin Start: 06/30/24 11:30 Freq: Status: Active Protocol: Document 06/30/24 11:31 NM (Rec: 06/30/24 12:32 NM [id number]) Posture Evaluation Position Standing Head/C-Spine Posture Forward Head L-Spine Posture Increased Lordosis Shoulder Posture (L) Rounded,(R) Rounded Pelvis Posture (L) Rotated Anterior,(L) Iliac Crest Superior Comments Posture Comments Increased knee flexion B, B hip ER L>R Palpation Assessment Location lumbar spine Palpation Details tenderness at L SIJ/PSIS No tenderness at midline L knee Palpation Details Increased bony girth at medial knee Tightness of hamstrings, boggy L hip Palpation Details Tightness at glute Tenderness over lateral- posterior hip near greater trochanter PT-OP-K Range of Motion Start: 06/30/24 11:30 Freq: Status: Active Protocol: Document 06/30/24 11:31 NM (Rec: 06/30/24 12:32 NM [id number]) Lumbar Spine Range of Motion Lumbar Spine Active Percentage Flexion 50 Extension 20 Lateral Flexion Left 50 Lateral Flexion Right 50 Comments 06/30/24: pain with lateral flexion B (L>R) Hip Goniometric Range of Motion Hip Right Flexion w/Knee Flexed 105 Internal Rotation 30 External Rotation 40 Comments HS: 125 deg Left Flexion w/Knee Flexed 105 Internal Rotation 28 External Rotation 30 Comments HS: 140 deg Knee Goniometric Range of Motion Knee Right Flexion Active (degrees) 120 Extension Active (degrees) 5 Left Flexion Active (degrees) 115 Extension Active (degrees) 4 PT-OP-L Special Tests Start: 06/30/24 11:30 Freq: Status: Active Protocol: Document 06/30/24 11:31 NM (Rec: 06/30/24 12:32 NM [id number]) Special Tests Lumbar Spine Special Tests Slump Test Results - Chavira/quadrant Test Results + R Comments local Hip Special Tests Stinchfield Resisted Hip Flexion Test Results + L FADIR Test Results + L Comments posterior hip BILLIE Test Results + L Comments posterior hip PT-OP-M Strength Start: 06/30/24 11:30 Freq: Status: Active Protocol: Document 06/30/24 11:31 NM (Rec: 06/30/24 12:32 NM [id number]) Trunk Strength Trunk Manual Muscle Testing Flexion 3+ Fair+ Extension 3+ Fair+ Rotation Left 3+ Fair+ Rotation Right 3+ Fair+ Lateral Flexion Left 3+ Fair+ Lateral Flexion Right 3+ Fair+ Comments Pain with resisted lateral flexion only Hip Strength Hip Manual Muscle Testing Right Flexion (L2) 4 Good Extension (S1) 3+ Fair+ Abduction 4 Good Adduction 4 Good External Rotation 4 Good Internal Rotation 4 Good Left Flexion (L2) 4- Good- Extension (S1) 3+ Fair+ Abduction 4- Good- Adduction 4- Good- External Rotation 4- Good- Internal Rotation 4- Good- Comments pain with flexion Knee Strength Knee Manual Muscle Testing Right Flexion (S2) 4 Good Extension (L3) 4 Good Comments no pain Left Flexion (S2) 4- Good- Extension (L3) 4- Good- Comments audible crepitus Ankle/Foot Strength Ankle and Foot Manual Muscle Testing Right Dorsiflexion (L4) 4 Good Plantarflexion (S1) 4 Good Comments tested in sitting Left Dorsiflexion (L4) 4 Good Plantarflexion (S1) 4 Good Comments tested in sitting PT-OP-Q Treatments Start: 06/30/24 11:30 Freq: Status: Active Protocol: Document 07/29/24 13:47 NM (Rec: 07/29/24 14:32 NM [id number]) Gym Equipment Shuttle Recovery B squat Details lvl 3 band at thighs Resistance 100# (3 navy) Reps/Time 3x15 Therapeutic Exercises Sitting Exercises sit to stand Sitting Exercise Name standard chair Side bilateral Reps/Minutes 10 Comments slight post lean toward 10th rep Standing Exercises lateral lunge Standing Exercise Name w/ slider Side bilateral Resistance lvl 3 band at thighs Equipment Used slider under foot, no hand support Reps/Minutes 15 ea - mod cues hip hinge Comments cued squat ea time, limit ROM for control w/ slide Other Exercises stretching Other Exercise Name HS stretch on leg press btwn sets Side bilateral Reps/Minutes 2x60 Comments reports good stretch Neuro Re-Education Treatment Balance Activities bungee stepping Details fwd, bwd, lateral stepping Equipment green bungee Reps/Duration 10 ea direction Comments Cued tall posture, less trunk lean. lateral most challenging . Good reactive and anticipatory balance Changing SALVADOR Details step taps, carioca Equipment 6 step Comments 1. step taps 2. double step taps 3. carioca Cued for coordination and weight shift, improved w/ reps . close SBA with prn CGA to steady Tandem Details stepping Reps/Duration 2x10 ft ea Hurdles Details cones instead w/ reciprocal patterrn Reps/Duration 2x10 ft ea Comments catches toes prn, demos 1 instance LOB. min A to stabilize at trunk d/t increased sway PT-OP-T Assessment and Plan Start: 06/30/24 11:30 Freq: Status: Active Protocol: Document 07/29/24 13:47 NM (Rec: 07/29/24 14:32 NM [id number]) Physical Therapy Assessment Goals Four Impairment not performing HEP Counsellors Goal (LTG) Pt will report compliance with HEP at least 3x/wk in order to maximize progression with PT and to transition to maitenance program after discharge 07/22/24: performing HEP daily LTG Duration 10 weeks Three Impairment pain with stairs Mcc Goal (LTG) Pt will be able to perform at least 14 stairs with one or fewer handrails with pain <3/ 10 in knees in order to demonstrate improved functional mobility and symptom management 07/22/24: performed 2 step ups on LLE with 1 hand support, no knee pain LTG Duration 10 weeks Two Impairment Penn score 31/56 indicating increased risk of falls, hx of falls Mcc Goal (LTG) Pt will improve Penn balance test score to at least 41/56 in order to demonstrate decreased fall risk and ability to ambulate without assistance LTG Duration 10 weeks One Impairment STS transfers impaired Short Term Goal (STG) Pt will be able to perform at least 10 sit to stands from 21 surface or less with close SBA or better and without UE assistance or compensation in order to demonstrate improved initial standing balance and BLE strength for transfers 07/29/24: 10 from 18 chair w/ o UE assist STG Duration 5 weeks MET Mcc Goal (LTG) Pt will perform at least 5x STS from 21 height surface or lower without UE assistance or compensation and meet age- related norm of 14.8 sec or less in order to demonstrate improved initial standing balance and BLE strength for transfers LTG Duration 10 weeks Assessment Summary Assessment Pt tolerated session well. No hip or knee pain during session. Challenging with hip hinge motion laterally during lunges. Improved initial standing balance with STS from standard chair. Able to progress resistance and reps on leg press. Will continue to progress and trial single leg squat next session. Pt demos difficulty with weight shifting during step taps and with changing SALVADOR but improved with reps. Prn CGA and 1 instance Min A to correct balance when LOB without fall occurred. Trunk control and stability with resistance especially with reactionary balance still most challenging ; demos reactionary balance to perturbations but needs cueing to step to recover. Very visually dependent but attempting to look up to decrease visual input without cueing. Pt would continue to benefit from skilled PT for progressive strengthening and balance training in order to reduce fall risk and improve activity tolerance. Physical Therapy Plan Frequency and Duration Frequency of Treatment 2x/Week Duration of treatment (weeks) 10 Plan of Care Start Date 06/30/24 Plan of Care End Date 09/10/24 Therapeutic Interventions Therapeutic Interventions Balance Training,Gait Training ,Home Exercise Program,Joint Mobilizations,Manual Therapy, Neuromuscular Re-education, Orthotic/Prosthetic Management ,Patient/Caregiver Education, Self-Care/Home Management, Sensory Integration,Soft Tissue Mobilization,Taping, Therapeutic Activities, Therapeutic Exercises Modalities Cold Pack/Ice Massage,Hot Packs Next Visit Focus/Plan Next Note Type Progress Note Next Visit Plan Next session focus on balance challenges as able, assess tolerance to new HEP exercises . lateral lunges w/ slider. changing SALVADOR Cont with glute/quad strength and global BLE strength. Review 07/13 stretching (hip flexor, calves). Balance training w/ hurdles, bungee, unstable surfaces, changing SALVADOR POC: Add STS to HEP. Balance training. B leg press. no HS stretching at this time. Hip 3 way and leg press. Address balance: hurdles, stable/ unstable surfaces Manual to HS, L hips and L knee, STM to lumbar spine Balance training, education on fall reduction strategies POC: global hip/knee/trunk strength, balance, step ups, transfers (trial quadruped and floor transfers)
--- NOTE | 2024-08-02 14:49 | PT.OTN ---
Current Diagnoses Pain in left hip (08/02/24) Stiffness of left hip, not elsewhere classified (08/02/24) Stiffness of left knee, not elsewhere classified (08/02/24) Stiffness of other specified joint, not elsewhere classified (08/02/24) Other lack of coordination (08/02/24) Weakness (08/02/24) Physical Therapy Treatment Note PT-OP-A Visit Information Start: 06/30/24 11:30 Freq: Status: Active Protocol: Document 08/02/24 13:50 NM (Rec: 08/02/24 14:32 NM [id number]) Out-Patient Physical Therapy Visit Information Visit Information Visit Type Progress Note Visit Start Time 13:50 Visit Stop Time 14:30 Visit Number 05/25 Evaluation Information Evaluation Date 06/30/24 Precautions Precautions Hx of falls PT-OP-B Current Condition Start: 06/30/24 11:30 Freq: Status: Active Protocol: Document 06/30/24 11:31 NM (Rec: 06/30/24 12:32 NM [id number]) Current Condition History of Current Condition Onset Date April 2024 History of Current Condition Pt presents with L hip and knee pain. Pt reports that he fell down the stairs in a hotel, 05/10/24. He fell down 3 -4 steps. He fell onto that L side. He was able to immediately walk afterward but needed assitance to stand, required hand rail. He has had xrays. No other imaging or assessments. He reports pain in hip with sleeping, less with ambulating. He reports his L knee bothers him with walking, stairs. He has a flight of stairs in his home ( 2 flights of about 14), has L hand rail with ascent; has 5-6 steps on front porch with B rails. Pt denies any other falls, no near misses, but he does report a concern about falling due to balance. Lives with . Pt reports has been exercises for his hip ( twisting, side bends, things he's done in past), reports makes him feel better; performed in standing; has also done leg raises on floor (side hip abd). Pt reports that he has also had back pain since the fall, he has been taking icy-hot and tylenol ( recently eliminated). L>R back pain, about waistline, no midline pain. Pt has not had imaging of back. No hx of back pain prior to fall. Reports no numbness/tingling/burning in legs. Reports other day when getting out of boat after rowing, could not move legs and states unable to stand up (from quadruped), needed 2 hand assist to stand. He reports that this was 1st time on hands/knees since fall, states due to friction from unfinished concrete. He can get in/out of boat without problem if holding onto something. Prior Treatments and Tests Radiograph of L hip 05/2024: No acute osseous abnormality Radiograph of L knee 05/2024: No acute osseous abnormality. Small joint effusion. 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 Treatment Goals Patient/Caregiver Goals preferably decreased pain Current Functional Impairments (Reported) Functional Limitations- Mobility/Gait 1 mi during walk (includes hill)- fatigues Functional Limitations- Recreation/ light weight exercise, Hobbies elliptical on occasion (last 3 weeks) PT-OP-C Subjective Start: 06/30/24 11:30 Freq: Status: Active Protocol: Document 08/02/24 13:50 NM (Rec: 08/02/24 14:32 NM [id number]) OP-PT Subjective Patient Comments Patient Comments Pt reports periodic L knee pain. He reports that no L knee pain. States doing better . Knee pain occurs when walking dog bc she pulls on leash. Pt reports improvement since starting PT in strength, transfers, and balance; states more aware of deficits. Wants to start working toward floor transfers . PT-OP-D Balance Start: 06/30/24 11:30 Freq: Status: Active Protocol: Document 06/30/24 11:31 NM (Rec: 06/30/24 12:32 NM [id number]) Balance Tests Penn Balance Test Penn Balance Test Score 31/56 Single Limb Standing Single Limb- Right 1 sec Single Limb- Left 1 sec PT-OP-E Functional Tests Start: 06/30/24 11:30 Freq: Status: Active Protocol: Document 06/30/24 11:31 NM (Rec: 06/30/24 12:32 NM [id number]) Functional Tests 30 Second Sit to Stand Test Score 11 Comments 21; reports no hip/knee pain, feels better Five Times Sit to Stand Test Score 12 sec Comments 21; reports no hip/knee pain; uses BLE to stab; poor stand balance PT-OP-F Manual Assessment Start: 06/30/24 11:30 Freq: Status: Active Protocol: Document 06/30/24 11:31 NM (Rec: 06/30/24 12:32 NM [id number]) Manual Assessments Soft Tissue Assessment Soft Tissue Mobility Assessment Decreased HS length B Joint Mobility Assessment Joint Mobility Assessment Decreased L hip and knee mobility AROM/PROM but not painful except at end range. Hypomobility of lumbar and SIJ PT-OP-G Mobility & Gait Start: 06/30/24 11:30 Freq: Status: Active Protocol: Document 06/30/24 11:31 NM (Rec: 06/30/24 12:47 NM [id number]) OP Gait Assessment Gait Gait Assistance Required: Independent Distance (Feet) 150 Assistive Devices Assistive Device None Gait Deviations General Gait Pattern Antalgic,Wide Based Gait Factors Limiting Gait Function Factors Limiting Gait Function Decreased Activity Tolerance, Decreased Strength,Limited Range of Motion,Pain,Poor Balance Comments Gait Comments Demos B knee flexion and slight hip flexion with stance . Antalgic gait, wider stance and SALVADOR with B hip ER, L>R PT-OP-J Posture/Palpation/Skin Start: 06/30/24 11:30 Freq: Status: Active Protocol: Document 06/30/24 11:31 NM (Rec: 06/30/24 12:32 NM [id number]) Posture Evaluation Position Standing Head/C-Spine Posture Forward Head L-Spine Posture Increased Lordosis Shoulder Posture (L) Rounded,(R) Rounded Pelvis Posture (L) Rotated Anterior,(L) Iliac Crest Superior Comments Posture Comments Increased knee flexion B, B hip ER L>R Palpation Assessment Location lumbar spine Palpation Details tenderness at L SIJ/PSIS No tenderness at midline L knee Palpation Details Increased bony girth at medial knee Tightness of hamstrings, boggy L hip Palpation Details Tightness at glute Tenderness over lateral- posterior hip near greater trochanter PT-OP-K Range of Motion Start: 06/30/24 11:30 Freq: Status: Active Protocol: Document 06/30/24 11:31 NM (Rec: 06/30/24 12:32 NM [id number]) Lumbar Spine Range of Motion Lumbar Spine Active Percentage Flexion 50 Extension 20 Lateral Flexion Left 50 Lateral Flexion Right 50 Comments 06/30/24: pain with lateral flexion B (L>R) Hip Goniometric Range of Motion Hip Right Flexion w/Knee Flexed 105 Internal Rotation 30 External Rotation 40 Comments HS: 125 deg Left Flexion w/Knee Flexed 105 Internal Rotation 28 External Rotation 30 Comments HS: 140 deg Knee Goniometric Range of Motion Knee Right Flexion Active (degrees) 120 Extension Active (degrees) 5 Left Flexion Active (degrees) 115 Extension Active (degrees) 4 PT-OP-L Special Tests Start: 06/30/24 11:30 Freq: Status: Active Protocol: Document 06/30/24 11:31 NM (Rec: 06/30/24 12:32 NM [id number]) Special Tests Lumbar Spine Special Tests Slump Test Results - Chavira/quadrant Test Results + R Comments local Hip Special Tests Stinchfield Resisted Hip Flexion Test Results + L FADIR Test Results + L Comments posterior hip BILLIE Test Results + L Comments posterior hip PT-OP-M Strength Start: 06/30/24 11:30 Freq: Status: Active Protocol: Document 08/02/24 13:50 NM (Rec: 08/02/24 14:32 NM [id number]) Hip Strength Hip Manual Muscle Testing Right Flexion (L2) 4 Good Extension (S1) 3+ Fair+ Abduction 4 Good Adduction 4 Good External Rotation 4 Good Internal Rotation 4 Good Left Flexion (L2) 4- Good- Extension (S1) 3+ Fair+ Abduction 4- Good- Adduction 4- Good- External Rotation 4- Good- Internal Rotation 4- Good- Comments pain with flexion Knee Strength Knee Manual Muscle Testing Right Flexion (S2) 4 Good Extension (L3) 4 Good Comments no pain Left Flexion (S2) 4- Good- Extension (L3) 4- Good- Comments audible crepitus PT-OP-Q Treatments Start: 06/30/24 11:30 Freq: Status: Active Protocol: Document 08/02/24 13:50 NM (Rec: 08/02/24 14:32 NM [id number]) Therapeutic Exercises Standing Exercises lunges Standing Exercise Name with hand support in prep for floor transfers (HEP) Side bilateral Equipment Used TM bar 1 hand for balance Reps/Minutes 10 ea Comments challenging; near to floor; neutral foot position step ups Standing Exercise Name 1. 6 step, 2. lateral step up 6, 3. stairs Side bilateral Equipment Used 2 fingers for balance Reps/Minutes 1. 15 ea, 2. 15 ea, 3. 15 stairs Comments 1 instance foot catching; L more challenging Neuro Re-Education Treatment Balance Activities squat picker box operator Details with balls from floor Reps/Duration 10 ea Comments squat picker box operator w/o hand support to get dog balls from floor. Close SBA. No LOB, no hip or knee pain Penn Reps/Duration 38/56 Comments Most challenged with step taps (catches foot 1x) and control with SLS/tandem and 360 turns uneven surfaces Details foam Surface unstable Comments 1. NBOS 2. NBOS w/ head turns 3. NBOS w/ nods 4. NBOS eyes closed Close SBA except for eyes closed- Ryan several times to prevent fall Hurdles Equipment hands hovering, prn hand support Reps/Duration 2x10 ft ea Comments 1. fwd w/ 2 feet down btwn hurdles most challenging anita with RLE 2. fwd w/ reciprocal 3. lateral Cued for heel strike to promote foot clearance vs keeping foot in PF L>R. Improved w/ reciprocal but still needs prn support from hands on //bar rails PT-OP-T Assessment and Plan Start: 06/30/24 11:30 Freq: Status: Active Protocol: Document 08/02/24 13:50 NM (Rec: 08/02/24 14:32 NM [id number]) Physical Therapy Assessment Goals Four Impairment not performing HEP Supervisor Fusing Room Goal (LTG) Pt will report compliance with HEP at least 3x/wk in order to maximize progression with PT and to transition to maitenance program after discharge 07/22/24: performing HEP daily LTG Duration 10 weeks MET Three Impairment pain with stairs Supervisor Fusing Room Goal (LTG) Pt will be able to perform at least 14 stairs with one or fewer handrails with pain <3/ 10 in knees in order to demonstrate improved functional mobility and symptom management 07/22/24: performed 2 step ups on LLE with 1 hand support, no knee pain 08/02/24: 15 steps with 1 finger support on rail for balance, no hip/knee pain; 1 instance increased sway LTG Duration 10 weeks PROGRESSING Two Impairment Penn score 31/56 indicating increased risk of falls, hx of falls [facility]ci Goal (LTG) Pt will improve Penn balance test score to at least 41/56 in order to demonstrate decreased fall risk and ability to ambulate without assistance 08/02/24: 38/56 LTG Duration 10 weeks PROGRESSING One Impairment STS transfers impaired Short Term Goal (STG) Pt will be able to perform at least 10 sit to stands from 21 surface or less with close SBA or better and without UE assistance or compensation in order to demonstrate improved initial standing balance and BLE strength for transfers 07/29/24: 10 from 18 chair w/ o UE assist STG Duration 5 weeks MET Supervisor Fusing Room Goal (LTG) Pt will perform at least 5x STS from 21 height surface or lower without UE assistance or compensation and meet age- related norm of 14.8 sec or less in order to demonstrate improved initial standing balance and BLE strength for transfers 08/02/24: 17.2 sec in standard - 1 instances of more attempts to stand, 1 instance uncontrolled descent LTG Duration 10 weeks PROGRESSING Progress Towards Goals Progress Towards Goals Progressing Toward Goals,Goals Met Assessment Summary Assessment Pt tolerated session well, demos good effort. No hip pain during session and prn knee pain. Progressing toward goals , meeting HEP goal. Progressed to 6 lateral step up. Does have mild L knee pain with lateral step up, lessened with cueing for alignment. Requires 1 hand assist for balance during descent on stairs. Still has instances where will catch foot on stairs with step ups/standard stairs and with Penn activities. Moderate cueing needed for trunk posture and control with balance activities. Cued for awareness during instances where pt begins moving more quickly vs maintaining control to improve stability. Initiated forward lunges in preparation for floor transfers in future sessions. Physical Therapy Plan Frequency and Duration Frequency of Treatment 2x/Week Duration of treatment (weeks) 10 Plan of Care Start Date 06/30/24 Plan of Care End Date 09/10/24 Therapeutic Interventions Therapeutic Interventions Balance Training,Gait Training ,Home Exercise Program,Joint Mobilizations,Manual Therapy, Neuromuscular Re-education, Orthotic/Prosthetic Management ,Patient/Caregiver Education, Self-Care/Home Management, Sensory Integration,Soft Tissue Mobilization,Taping, Therapeutic Activities, Therapeutic Exercises Modalities Cold Pack/Ice Massage,Hot Packs Next Visit Focus/Plan Next Note Type Treatment Note Next Visit Plan Assess lunges and initiate floor transfers. Focus on balance challenges as able, assess tolerance to new HEP exercises, unstable surfaces, lifting and carrying. lateral lunges w/ slider. changing SALVADOR . Cont with glute/quad strength and global BLE strength. Balance training w/ hurdles, bungee, unstable surfaces, changing SALVADOR POC: Add STS to HEP. Balance training. B leg press. Hip 3 way and leg press. Address balance: hurdles, stable/ unstable surfaces Manual to HS, L hips and L knee, STM to lumbar spine Balance training, education on fall reduction strategies POC: global hip/knee/trunk strength, balance, step ups, transfers (trial quadruped and floor transfers)
--- NOTE | 2024-08-17 11:31 | PT.OTN ---
Current Diagnoses Pain in left hip (08/17/24) Stiffness of left hip, not elsewhere classified (08/17/24) Stiffness of left knee, not elsewhere classified (08/17/24) Stiffness of other specified joint, not elsewhere classified (08/17/24) Other lack of coordination (08/17/24) Weakness (08/17/24) Physical Therapy Treatment Note PT-OP-A Visit Information Start: 06/30/24 11:30 Freq: Status: Active Protocol: Document 08/17/24 10:44 NM (Rec: 08/17/24 11:31 NM [id number]) Out-Patient Physical Therapy Visit Information Visit Information Visit Type Treatment Note Visit Start Time 10:46 Visit Stop Time 11:27 Visit Number 10 Evaluation Information Evaluation Date 06/30/24 Precautions Precautions Hx of falls PT-OP-B Current Condition Start: 06/30/24 11:30 Freq: Status: Active Protocol: Document 06/30/24 11:31 NM (Rec: 06/30/24 12:32 NM [id number]) Current Condition History of Current Condition Onset Date April 2024 History of Current Condition Pt presents with L hip and knee pain. Pt reports that he fell down the stairs in a hotel, 05/10/24. He fell down 3 -4 steps. He fell onto that L side. He was able to immediately walk afterward but needed assitance to stand, required hand rail. He has had xrays. No other imaging or assessments. He reports pain in hip with sleeping, less with ambulating. He reports his L knee bothers him with walking, stairs. He has a flight of stairs in his home ( 2 flights of about 14), has L hand rail with ascent; has 5-6 steps on front porch with B rails. Pt denies any other falls, no near misses, but he does report a concern about falling due to balance. Lives with . Pt reports has been exercises for his hip ( twisting, side bends, things he's done in past), reports makes him feel better; performed in standing; has also done leg raises on floor (side hip abd). Pt reports that he has also had back pain since the fall, he has been taking icy-hot and tylenol ( recently eliminated). L>R back pain, about waistline, no midline pain. Pt has not had imaging of back. No hx of back pain prior to fall. Reports no numbness/tingling/burning in legs. Reports other day when getting out of boat after rowing, could not move legs and states unable to stand up (from quadruped), needed 2 hand assist to stand. He reports that this was 1st time on hands/knees since fall, states due to friction from unfinished concrete. He can get in/out of boat without problem if holding onto something. Prior Treatments and Tests Radiograph of L hip 05/2024: No acute osseous abnormality Radiograph of L knee 05/2024: No acute osseous abnormality. Small joint effusion. 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 Treatment Goals Patient/Caregiver Goals preferably decreased pain Current Functional Impairments (Reported) Functional Limitations- Mobility/Gait 1 mi during walk (includes hill)- fatigues Functional Limitations- Recreation/ light weight exercise, Hobbies elliptical on occasion (last 3 weeks) PT-OP-C Subjective Start: 06/30/24 11:30 Freq: Status: Active Protocol: Document 08/17/24 10:44 NM (Rec: 08/17/24 11:31 NM [id number]) OP-PT Subjective Patient Comments Patient Comments Pt reports no pain in hip or knees. No changes. Had a good trip. Pt reports noticed that his balance was a little off the in airport PT-OP-D Balance Start: 06/30/24 11:30 Freq: Status: Active Protocol: Document 06/30/24 11:31 NM (Rec: 06/30/24 12:32 NM [id number]) Balance Tests Penn Balance Test Penn Balance Test Score 31/56 Single Limb Standing Single Limb- Right 1 sec Single Limb- Left 1 sec PT-OP-E Functional Tests Start: 06/30/24 11:30 Freq: Status: Active Protocol: Document 06/30/24 11:31 NM (Rec: 06/30/24 12:32 NM [id number]) Functional Tests 30 Second Sit to Stand Test Score 11 Comments 21; reports no hip/knee pain, feels better Five Times Sit to Stand Test Score 12 sec Comments 21; reports no hip/knee pain; uses BLE to stab; poor stand balance PT-OP-F Manual Assessment Start: 06/30/24 11:30 Freq: Status: Active Protocol: Document 06/30/24 11:31 NM (Rec: 06/30/24 12:32 NM [id number]) Manual Assessments Soft Tissue Assessment Soft Tissue Mobility Assessment Decreased HS length B Joint Mobility Assessment Joint Mobility Assessment Decreased L hip and knee mobility AROM/PROM but not painful except at end range. Hypomobility of lumbar and SIJ PT-OP-G Mobility & Gait Start: 06/30/24 11:30 Freq: Status: Active Protocol: Document 06/30/24 11:31 NM (Rec: 06/30/24 12:47 NM [id number]) OP Gait Assessment Gait Gait Assistance Required: Independent Distance (Feet) 150 Assistive Devices Assistive Device None Gait Deviations General Gait Pattern Antalgic,Wide Based Gait Factors Limiting Gait Function Factors Limiting Gait Function Decreased Activity Tolerance, Decreased Strength,Limited Range of Motion,Pain,Poor Balance Comments Gait Comments Demos B knee flexion and slight hip flexion with stance . Antalgic gait, wider stance and SALVADOR with B hip ER, L>R PT-OP-J Posture/Palpation/Skin Start: 06/30/24 11:30 Freq: Status: Active Protocol: Document 06/30/24 11:31 NM (Rec: 06/30/24 12:32 NM [id number]) Posture Evaluation Position Standing Head/C-Spine Posture Forward Head L-Spine Posture Increased Lordosis Shoulder Posture (L) Rounded,(R) Rounded Pelvis Posture (L) Rotated Anterior,(L) Iliac Crest Superior Comments Posture Comments Increased knee flexion B, B hip ER L>R Palpation Assessment Location lumbar spine Palpation Details tenderness at L SIJ/PSIS No tenderness at midline L knee Palpation Details Increased bony girth at medial knee Tightness of hamstrings, boggy L hip Palpation Details Tightness at glute Tenderness over lateral- posterior hip near greater trochanter PT-OP-K Range of Motion Start: 06/30/24 11:30 Freq: Status: Active Protocol: Document 06/30/24 11:31 NM (Rec: 06/30/24 12:32 NM [id number]) Lumbar Spine Range of Motion Lumbar Spine Active Percentage Flexion 50 Extension 20 Lateral Flexion Left 50 Lateral Flexion Right 50 Comments 06/30/24: pain with lateral flexion B (L>R) Hip Goniometric Range of Motion Hip Right Flexion w/Knee Flexed 105 Internal Rotation 30 External Rotation 40 Comments HS: 125 deg Left Flexion w/Knee Flexed 105 Internal Rotation 28 External Rotation 30 Comments HS: 140 deg Knee Goniometric Range of Motion Knee Right Flexion Active (degrees) 120 Extension Active (degrees) 5 Left Flexion Active (degrees) 115 Extension Active (degrees) 4 PT-OP-L Special Tests Start: 06/30/24 11:30 Freq: Status: Active Protocol: Document 06/30/24 11:31 NM (Rec: 06/30/24 12:32 NM [id number]) Special Tests Lumbar Spine Special Tests Slump Test Results - Chavira/quadrant Test Results + R Comments local Hip Special Tests Stinchfield Resisted Hip Flexion Test Results + L FADIR Test Results + L Comments posterior hip BILLIE Test Results + L Comments posterior hip PT-OP-M Strength Start: 06/30/24 11:30 Freq: Status: Active Protocol: Document 08/02/24 13:50 NM (Rec: 08/02/24 14:32 NM [id number]) Hip Strength Hip Manual Muscle Testing Right Flexion (L2) 4 Good Extension (S1) 3+ Fair+ Abduction 4 Good Adduction 4 Good External Rotation 4 Good Internal Rotation 4 Good Left Flexion (L2) 4- Good- Extension (S1) 3+ Fair+ Abduction 4- Good- Adduction 4- Good- External Rotation 4- Good- Internal Rotation 4- Good- Comments pain with flexion Knee Strength Knee Manual Muscle Testing Right Flexion (S2) 4 Good Extension (L3) 4 Good Comments no pain Left Flexion (S2) 4- Good- Extension (L3) 4- Good- Comments audible crepitus PT-OP-Q Treatments Start: 06/30/24 11:30 Freq: Status: Active Protocol: Document 08/17/24 10:44 NM (Rec: 08/17/24 11:31 NM [id number]) Therapeutic Exercises Standing Exercises lunges Standing Exercise Name with hand support in prep for floor transfers (HEP review) Side bilateral Equipment Used 1 hand balance on chair Reps/Minutes 10 ea Comments challenging, demos ecc shaking step ups Standing Exercise Name 8 step- fwd only Side bilateral Equipment Used 1 finger to assist for balance Reps/Minutes 2x10 ea Comments prn catches toe; 2 instances of catching foot or LOB w/o fall Other Exercises stretching Other Exercise Name calf stretch Side bilateral Equipment Used elevated on mat, hand support for balance Reps/Minutes 60 Therapeutic Activity Therapeutic Activity floor transfers Name CGA w/ gait belt Reps/Minutes 10 min Comments 1. tall kneel <> 1/2 kneel switching sides 2. via hand support on chair to floor 3. chair lunges to floor, 4 ea leg, B hand support on chair\ 4. sitting on floor > side sit > quadruped > tall kneel > 1/ 2 kneel to stand with hand support and CGA Neuro Re-Education Treatment Balance Activities ambulation drills Details close SBA Reps/Duration 2x50 ft ea Comments 1. head turns 2. nods Demos slowed gait w/ head turns, more unsteadiness and weaving with horizontal vs vertical nods bungee stepping Details fwd stepping around cones Surface CGA Equipment green bungee Reps/Duration 5 Comments Challenging, fwd amb weaving around cones ~ airport, then in reverse. Cued tall trunk, core brace. Knocks cones down 1x Changing SALVADOR Comments eyes closed 1. NBOS 3x for 10 sec ea 2. w/ head turns 3. w/ nods Hurdles Details close SBA Comments 1. fwd w/ reciprocal 2. fwd reciprocal > cones weaving Better heel strike and foot clearance. Does not catch toes except 2x initially, improved w/ reps PT-OP-T Assessment and Plan Start: 06/30/24 11:30 Freq: Status: Active Protocol: Document 08/17/24 10:44 NM (Rec: 08/17/24 11:31 NM [id number]) Physical Therapy Assessment Goals Four Impairment not performing HEP Quilting Supervisor Goal (LTG) Pt will report compliance with HEP at least 3x/wk in order to maximize progression with PT and to transition to maitenance program after discharge 07/22/24: performing HEP daily LTG Duration 10 weeks MET Three Impairment pain with stairs Skilled Nursing Goal (LTG) Pt will be able to perform at least 14 stairs with one or fewer handrails with pain <3/ 10 in knees in order to demonstrate improved functional mobility and symptom management 07/22/24: performed 2 step ups on LLE with 1 hand support, no knee pain 08/02/24: 15 steps with 1 finger support on rail for balance, no hip/knee pain; 1 instance increased sway LTG Duration 10 weeks PROGRESSING Two Impairment Penn score 31/56 indicating increased risk of falls, hx of falls Quilting Supervisor Goal (LTG) Pt will improve Penn balance test score to at least 41/56 in order to demonstrate decreased fall risk and ability to ambulate without assistance 08/02/24: 38/56 LTG Duration 10 weeks PROGRESSING One Impairment STS transfers impaired Short Term Goal (STG) Pt will be able to perform at least 10 sit to stands from 21 surface or less with close SBA or better and without UE assistance or compensation in order to demonstrate improved initial standing balance and BLE strength for transfers 07/29/24: 10 from 18 chair w/ o UE assist STG Duration 5 weeks MET Quilting Supervisor Goal (LTG) Pt will perform at least 5x STS from 21 height surface or lower without UE assistance or compensation and meet age- related norm of 14.8 sec or less in order to demonstrate improved initial standing balance and BLE strength for transfers 08/02/24: 17.2 sec in standard - 1 instances of more attempts to stand, 1 instance uncontrolled descent LTG Duration 10 weeks PROGRESSING Assessment Summary Assessment Pt continues to have no hip or knee pain. Progressed to 8 step ups. Lunges still challenging, performed in progression for floor transfers. Pt does 1 successful floor transfer using UE support on chair, PT providing tactile and verbal cues for safety. Performed initially in components. Remainder of session addressing pt balance during situations with less visual dependence and with perturbations. Quick directional changes and head turns challenging for pt. Demos trunk leaning and needs prn assitance to stabilize. Pt would continue to benefit from skilled PT for progressive mobility and balance training to decrease fall risk. Physical Therapy Plan Frequency and Duration Frequency of Treatment 2x/Week Duration of treatment (weeks) 10 Plan of Care Start Date 06/30/24 Plan of Care End Date 09/10/24 Therapeutic Interventions Therapeutic Interventions Balance Training,Gait Training ,Home Exercise Program,Joint Mobilizations,Manual Therapy, Neuromuscular Re-education, Orthotic/Prosthetic Management ,Patient/Caregiver Education, Self-Care/Home Management, Sensory Integration,Soft Tissue Mobilization,Taping, Therapeutic Activities, Therapeutic Exercises Modalities Cold Pack/Ice Massage,Hot Packs Next Visit Focus/Plan Next Note Type Treatment Note Next Visit Plan Cont lunges and 8 step up, leg press and balance training w/ less visual dependence and unstable surfaces, perturbations. w/ PTfloor transfers. Focus on balance challenges as able, assess tolerance to new HEP exercises , unstable surfaces, lifting and carrying. lateral lunges w / slider. changing SALVADOR. Cont with glute/quad strength and global BLE strength. Balance training w/ hurdles, bungee, unstable surfaces, changing SALVADOR POC: Add STS to HEP. Balance training. B leg press. Hip 3 way and leg press. Address balance: hurdles, stable/ unstable surfaces Manual to HS, L hips and L knee, STM to lumbar spine Balance training, education on fall reduction strategies POC: global hip/knee/trunk strength, balance, step ups, transfers (trial quadruped and floor transfers)
--- NOTE | 2024-08-19 16:20 | PT.OTN ---
Current Diagnoses Pain in left hip (08/19/24) Stiffness of left hip, not elsewhere classified (08/19/24) Stiffness of left knee, not elsewhere classified (08/19/24) Stiffness of other specified joint, not elsewhere classified (08/19/24) Other lack of coordination (08/19/24) Weakness (08/19/24) Physical Therapy Treatment Note PT-OP-A Visit Information Start: 06/30/24 11:30 Freq: Status: Active Protocol: Document 08/19/24 15:10 SW (Rec: 08/19/24 16:18 SW [id number]) Out-Patient Physical Therapy Visit Information Visit Information Visit Type Treatment Note Visit Start Time 15:15 Visit Stop Time 15:55 Visit Number 11 Number of ASSOCIATE DATA SCIENTIST Visits 1 Precautions Precautions Hx of falls PT-OP-B Current Condition Start: 06/30/24 11:30 Freq: Status: Active Protocol: Document 06/30/24 11:31 NM (Rec: 06/30/24 12:32 NM [id number]) Current Condition History of Current Condition Onset Date April 2024 History of Current Condition Pt presents with L hip and knee pain. Pt reports that he fell down the stairs in a hotel, 05/10/24. He fell down 3 -4 steps. He fell onto that L side. He was able to immediately walk afterward but needed assitance to stand, required hand rail. He has had xrays. No other imaging or assessments. He reports pain in hip with sleeping, less with ambulating. He reports his L knee bothers him with walking, stairs. He has a flight of stairs in his home ( 2 flights of about 14), has L hand rail with ascent; has 5-6 steps on front porch with B rails. Pt denies any other falls, no near misses, but he does report a concern about falling due to balance. Lives with . Pt reports has been exercises for his hip ( twisting, side bends, things he's done in past), reports makes him feel better; performed in standing; has also done leg raises on floor (side hip abd). Pt reports that he has also had back pain since the fall, he has been taking icy-hot and tylenol ( recently eliminated). L>R back pain, about waistline, no midline pain. Pt has not had imaging of back. No hx of back pain prior to fall. Reports no numbness/tingling/burning in legs. Reports other day when getting out of boat after rowing, could not move legs and states unable to stand up (from quadruped), needed 2 hand assist to stand. He reports that this was 1st time on hands/knees since fall, states due to friction from unfinished concrete. He can get in/out of boat without problem if holding onto something. Prior Treatments and Tests Radiograph of L hip 05/2024: No acute osseous abnormality Radiograph of L knee 05/2024: No acute osseous abnormality. Small joint effusion. 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 Treatment Goals Patient/Caregiver Goals preferably decreased pain Current Functional Impairments (Reported) Functional Limitations- Mobility/Gait 1 mi during walk (includes hill)- fatigues Functional Limitations- Recreation/ light weight exercise, Hobbies elliptical on occasion (last 3 weeks) PT-OP-C Subjective Start: 06/30/24 11:30 Freq: Status: Active Protocol: Document 08/19/24 15:10 SW (Rec: 08/19/24 16:18 SW [id number]) OP-PT Subjective Patient Comments Patient Comments Pt reports feels 60-70% better , stair climbing at home is better, not as dependent on handrail, still have it close. Pt reports walking further with dog, 3/4-1+ miles/day, feels good after. PT-OP-D Balance Start: 06/30/24 11:30 Freq: Status: Active Protocol: Document 06/30/24 11:31 NM (Rec: 06/30/24 12:32 NM [id number]) Balance Tests Penn Balance Test Penn Balance Test Score 31/56 Single Limb Standing Single Limb- Right 1 sec Single Limb- Left 1 sec PT-OP-E Functional Tests Start: 06/30/24 11:30 Freq: Status: Active Protocol: Document 06/30/24 11:31 NM (Rec: 06/30/24 12:32 NM [id number]) Functional Tests 30 Second Sit to Stand Test Score 11 Comments 21; reports no hip/knee pain, feels better Five Times Sit to Stand Test Score 12 sec Comments 21; reports no hip/knee pain; uses BLE to stab; poor stand balance PT-OP-F Manual Assessment Start: 06/30/24 11:30 Freq: Status: Active Protocol: Document 06/30/24 11:31 NM (Rec: 06/30/24 12:32 NM [id number]) Manual Assessments Soft Tissue Assessment Soft Tissue Mobility Assessment Decreased HS length B Joint Mobility Assessment Joint Mobility Assessment Decreased L hip and knee mobility AROM/PROM but not painful except at end range. Hypomobility of lumbar and SIJ PT-OP-G Mobility & Gait Start: 06/30/24 11:30 Freq: Status: Active Protocol: Document 06/30/24 11:31 NM (Rec: 06/30/24 12:47 NM [id number]) OP Gait Assessment Gait Gait Assistance Required: Independent Distance (Feet) 150 Assistive Devices Assistive Device None Gait Deviations General Gait Pattern Antalgic,Wide Based Gait Factors Limiting Gait Function Factors Limiting Gait Function Decreased Activity Tolerance, Decreased Strength,Limited Range of Motion,Pain,Poor Balance Comments Gait Comments Demos B knee flexion and slight hip flexion with stance . Antalgic gait, wider stance and SALVADOR with B hip ER, L>R PT-OP-J Posture/Palpation/Skin Start: 06/30/24 11:30 Freq: Status: Active Protocol: Document 06/30/24 11:31 NM (Rec: 06/30/24 12:32 NM [id number]) Posture Evaluation Position Standing Head/C-Spine Posture Forward Head L-Spine Posture Increased Lordosis Shoulder Posture (L) Rounded,(R) Rounded Pelvis Posture (L) Rotated Anterior,(L) Iliac Crest Superior Comments Posture Comments Increased knee flexion B, B hip ER L>R Palpation Assessment Location lumbar spine Palpation Details tenderness at L SIJ/PSIS No tenderness at midline L knee Palpation Details Increased bony girth at medial knee Tightness of hamstrings, boggy L hip Palpation Details Tightness at glute Tenderness over lateral- posterior hip near greater trochanter PT-OP-K Range of Motion Start: 06/30/24 11:30 Freq: Status: Active Protocol: Document 06/30/24 11:31 NM (Rec: 06/30/24 12:32 NM [id number]) Lumbar Spine Range of Motion Lumbar Spine Active Percentage Flexion 50 Extension 20 Lateral Flexion Left 50 Lateral Flexion Right 50 Comments 06/30/24: pain with lateral flexion B (L>R) Hip Goniometric Range of Motion Hip Right Flexion w/Knee Flexed 105 Internal Rotation 30 External Rotation 40 Comments HS: 125 deg Left Flexion w/Knee Flexed 105 Internal Rotation 28 External Rotation 30 Comments HS: 140 deg Knee Goniometric Range of Motion Knee Right Flexion Active (degrees) 120 Extension Active (degrees) 5 Left Flexion Active (degrees) 115 Extension Active (degrees) 4 PT-OP-L Special Tests Start: 06/30/24 11:30 Freq: Status: Active Protocol: Document 06/30/24 11:31 NM (Rec: 06/30/24 12:32 NM [id number]) Special Tests Lumbar Spine Special Tests Slump Test Results - Chavira/quadrant Test Results + R Comments local Hip Special Tests Stinchfield Resisted Hip Flexion Test Results + L FADIR Test Results + L Comments posterior hip BILLIE Test Results + L Comments posterior hip PT-OP-M Strength Start: 06/30/24 11:30 Freq: Status: Active Protocol: Document 08/02/24 13:50 NM (Rec: 08/02/24 14:32 NM [id number]) Hip Strength Hip Manual Muscle Testing Right Flexion (L2) 4 Good Extension (S1) 3+ Fair+ Abduction 4 Good Adduction 4 Good External Rotation 4 Good Internal Rotation 4 Good Left Flexion (L2) 4- Good- Extension (S1) 3+ Fair+ Abduction 4- Good- Adduction 4- Good- External Rotation 4- Good- Internal Rotation 4- Good- Comments pain with flexion Knee Strength Knee Manual Muscle Testing Right Flexion (S2) 4 Good Extension (L3) 4 Good Comments no pain Left Flexion (S2) 4- Good- Extension (L3) 4- Good- Comments audible crepitus PT-OP-Q Treatments Start: 06/30/24 11:30 Freq: Status: Active Protocol: Document 08/19/24 15:10 SW (Rec: 08/19/24 16:18 SW [id number]) Gym Equipment Shuttle Recovery B squat Details lvl 3 band at thighs Resistance 100# (3 navy) Reps/Time 3x15 Shuttle Balance Red Details Red Clips Reps/Duration x6' Comments fwd/lateral pt challenged requiring frequent ROLL FORGER/CGA, cued for soft bend in knees and not to lock out knees lateral>challenge than fwd Therapeutic Exercises Standing Exercises lunges Standing Exercise Name with hand support in prep for floor transfers (HEP review) Side bilateral Equipment Used 1 hand balance on chair Reps/Minutes 10 ea Comments challenging, demos ecc shaking step ups Standing Exercise Name 8 step- fwd only Side bilateral Equipment Used 1 finger to assist for balance Reps/Minutes 2x10 ea Comments prn catches toe; 2 instances of catching foot or LOB w/o fall Neuro Re-Education Treatment Balance Activities Cone weaving Details Cone weaving Surface carpet Equipment cones Comments ASSOCIATE DATA SCIENTIST calling out direction changes ambulation drills Details close SBA Reps/Duration 2x50 ft ea Comments 1. head turns 2. nods Demos slowed gait w/ head turns, left path deviation with L head turns, minimal head turn range bungee stepping Details Fwd/bckwd Surface CGA Equipment green bungee Reps/Duration x5 ea Comments cued for controll Changing SALVADOR Comments eyes closed 1. NBOS 3x for 10 sec ea 2. w/ head turns 3. w/ nods uneven surfaces Details foam Surface unstable Comments 1. NBOS 2. NBOS w/ head turns 3. NBOS w/ nods 4. NBOS eyes closed Close SBA except for eyes closed- Ryan several times to prevent fall PT-OP-T Assessment and Plan Start: 06/30/24 11:30 Freq: Status: Active Protocol: Document 08/19/24 15:10 (Rec: 08/19/24 16:18 [id number]) Physical Therapy Assessment Goals Four Impairment not performing HEP Fdc Goal (LTG) Pt will report compliance with HEP at least 3x/wk in order to maximize progression with PT and to transition to maitenance program after discharge 07/22/24: performing HEP daily LTG Duration 10 weeks MET Three Impairment pain with stairs Fdc Goal (LTG) Pt will be able to perform at least 14 stairs with one or fewer handrails with pain <3/ 10 in knees in order to demonstrate improved functional mobility and symptom management 07/22/24: performed 2 step ups on LLE with 1 hand support, no knee pain 08/02/24: 15 steps with 1 finger support on rail for balance, no hip/knee pain; 1 instance increased sway LTG Duration 10 weeks PROGRESSING Two Impairment Penn score 31/56 indicating increased risk of falls, hx of falls Fdc Goal (LTG) Pt will improve Penn balance test score to at least 41/56 in order to demonstrate decreased fall risk and ability to ambulate without assistance 08/02/24: 38/56 LTG Duration 10 weeks PROGRESSING One Impairment STS transfers impaired Short Term Goal (STG) Pt will be able to perform at least 10 sit to stands from 21 surface or less with close SBA or better and without UE assistance or compensation in order to demonstrate improved initial standing balance and BLE strength for transfers 07/29/24: 10 from 18 chair w/ o UE assist STG Duration 5 weeks MET Pressroom Worker Goal (LTG) Pt will perform at least 5x STS from 21 height surface or lower without UE assistance or compensation and meet age- related norm of 14.8 sec or less in order to demonstrate improved initial standing balance and BLE strength for transfers 08/02/24: 17.2 sec in standard - 1 instances of more attempts to stand, 1 instance uncontrolled descent LTG Duration 10 weeks PROGRESSING Assessment Summary Assessment Session focused on balance challenges this session with changing surfaces, dynamic components, and perturbations. Pt highly challenged on shuttle balance requiring mod ROLL FORGER, CGA with x2 instances of near LOB. Gait belt donned with all balance work. Pt challenged with dynamic movement and unstable surfaces , requiring CGA throughout. Physical Therapy Plan Frequency and Duration Frequency of Treatment 2x/Week Duration of treatment (weeks) 10 Plan of Care Start Date 06/30/24 Plan of Care End Date 09/10/24 Therapeutic Interventions Therapeutic Interventions Balance Training,Gait Training ,Home Exercise Program,Joint Mobilizations,Manual Therapy, Neuromuscular Re-education, Orthotic/Prosthetic Management ,Patient/Caregiver Education, Self-Care/Home Management, Sensory Integration,Soft Tissue Mobilization,Taping, Therapeutic Activities, Therapeutic Exercises Modalities Cold Pack/Ice Massage,Hot Packs Next Visit Focus/Plan Next Note Type Treatment Note Next Visit Plan Pt may benefit from continued work on shuttle balance. Cont lunges and 8 step up, leg press and balance training w/ less visual dependence and unstable surfaces, perturbations. w/ PTfloor transfers. Focus on balance challenges as able, assess tolerance to new HEP exercises , unstable surfaces, lifting and carrying. lateral lunges w / slider. changing SALVADOR. Cont with glute/quad strength and global BLE strength. Balance training w/ hurdles, bungee, unstable surfaces, changing SALVADOR POC: Add STS to HEP. Balance training. B leg press. Hip 3 way and leg press. Address balance: hurdles, stable/ unstable surfaces Manual to HS, L hips and L knee, STM to lumbar spine Balance training, education on fall reduction strategies POC: global hip/knee/trunk strength, balance, step ups, transfers (trial quadruped and floor transfers)
--- NOTE | 2024-08-24 15:42 | PT-OP ANOTE ---
Cancelled session today d/t elevated blood pressure, per PT Michela. Pt reports chemo on Friday, fatigued all day yesterday and BP was around 170/82. Today initial BP 176/85 HR 58, after 5 minutes of rest BP 187/88 HR 59. SpO2 99%. Instructed patient to followup with a call to MD for elevated BP and to self monitor.
--- NOTE | 2024-08-26 15:25 | PT.OTN ---
Current Diagnoses Pain in left hip (08/26/24) Stiffness of left hip, not elsewhere classified (08/26/24) Stiffness of left knee, not elsewhere classified (08/26/24) Stiffness of other specified joint, not elsewhere classified (08/26/24) Other lack of coordination (08/26/24) Weakness (08/26/24) Physical Therapy Treatment Note PT-OP-A Visit Information Start: 06/30/24 11:30 Freq: Status: Active Protocol: Document 08/26/24 14:32 NM (Rec: 08/26/24 15:25 NM [id number]) Out-Patient Physical Therapy Visit Information Visit Information Visit Type Treatment Note Visit Note 163/81 mmHg L arm SOS 158/73 mmHg L arm Visit Start Time 14:33 Visit Stop Time 15:13 Visit Number 12 Evaluation Information Evaluation Date 06/30/24 Precautions Precautions Hx of falls PT-OP-B Current Condition Start: 06/30/24 11:30 Freq: Status: Active Protocol: Document 06/30/24 11:31 NM (Rec: 06/30/24 12:32 NM [id number]) Current Condition History of Current Condition Onset Date April 2024 History of Current Condition Pt presents with L hip and knee pain. Pt reports that he fell down the stairs in a hotel, 05/10/24. He fell down 3 -4 steps. He fell onto that L side. He was able to immediately walk afterward but needed assitance to stand, required hand rail. He has had xrays. No other imaging or assessments. He reports pain in hip with sleeping, less with ambulating. He reports his L knee bothers him with walking, stairs. He has a flight of stairs in his home ( 2 flights of about 14), has L hand rail with ascent; has 5-6 steps on front porch with B rails. Pt denies any other falls, no near misses, but he does report a concern about falling due to balance. Lives with . Pt reports has been exercises for his hip ( twisting, side bends, things he's done in past), reports makes him feel better; performed in standing; has also done leg raises on floor (side hip abd). Pt reports that he has also had back pain since the fall, he has been taking icy-hot and tylenol ( recently eliminated). L>R back pain, about waistline, no midline pain. Pt has not had imaging of back. No hx of back pain prior to fall. Reports no numbness/tingling/burning in legs. Reports other day when getting out of boat after rowing, could not move legs and states unable to stand up (from quadruped), needed 2 hand assist to stand. He reports that this was 1st time on hands/knees since fall, states due to friction from unfinished concrete. He can get in/out of boat without problem if holding onto something. Prior Treatments and Tests Radiograph of L hip 05/2024: No acute osseous abnormality Radiograph of L knee 05/2024: No acute osseous abnormality. Small joint effusion. 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 Treatment Goals Patient/Caregiver Goals preferably decreased pain Current Functional Impairments (Reported) Functional Limitations- Mobility/Gait 1 mi during walk (includes hill)- fatigues Functional Limitations- Recreation/ light weight exercise, Hobbies elliptical on occasion (last 3 weeks) PT-OP-C Subjective Start: 06/30/24 11:30 Freq: Status: Active Protocol: Document 08/26/24 14:32 NM (Rec: 08/26/24 15:25 NM [id number]) OP-PT Subjective Patient Comments Patient Comments Pt reports no changes since last PT visit. He is on blood pressure medication, as BP raises duet to chemo. PT-OP-D Balance Start: 06/30/24 11:30 Freq: Status: Active Protocol: Document 06/30/24 11:31 NM (Rec: 06/30/24 12:32 NM [id number]) Balance Tests Penn Balance Test Penn Balance Test Score 31/56 Single Limb Standing Single Limb- Right 1 sec Single Limb- Left 1 sec PT-OP-E Functional Tests Start: 06/30/24 11:30 Freq: Status: Active Protocol: Document 06/30/24 11:31 NM (Rec: 06/30/24 12:32 NM [id number]) Functional Tests 30 Second Sit to Stand Test Score 11 Comments 21; reports no hip/knee pain, feels better Five Times Sit to Stand Test Score 12 sec Comments 21; reports no hip/knee pain; uses BLE to stab; poor stand balance PT-OP-F Manual Assessment Start: 06/30/24 11:30 Freq: Status: Active Protocol: Document 06/30/24 11:31 NM (Rec: 06/30/24 12:32 NM [id number]) Manual Assessments Soft Tissue Assessment Soft Tissue Mobility Assessment Decreased HS length B Joint Mobility Assessment Joint Mobility Assessment Decreased L hip and knee mobility AROM/PROM but not painful except at end range. Hypomobility of lumbar and SIJ PT-OP-G Mobility & Gait Start: 06/30/24 11:30 Freq: Status: Active Protocol: Document 06/30/24 11:31 NM (Rec: 06/30/24 12:47 NM [id number]) OP Gait Assessment Gait Gait Assistance Required: Independent Distance (Feet) 150 Assistive Devices Assistive Device None Gait Deviations General Gait Pattern Antalgic,Wide Based Gait Factors Limiting Gait Function Factors Limiting Gait Function Decreased Activity Tolerance, Decreased Strength,Limited Range of Motion,Pain,Poor Balance Comments Gait Comments Demos B knee flexion and slight hip flexion with stance . Antalgic gait, wider stance and SALVADOR with B hip ER, L>R PT-OP-J Posture/Palpation/Skin Start: 06/30/24 11:30 Freq: Status: Active Protocol: Document 06/30/24 11:31 NM (Rec: 06/30/24 12:32 NM [id number]) Posture Evaluation Position Standing Head/C-Spine Posture Forward Head L-Spine Posture Increased Lordosis Shoulder Posture (L) Rounded,(R) Rounded Pelvis Posture (L) Rotated Anterior,(L) Iliac Crest Superior Comments Posture Comments Increased knee flexion B, B hip ER L>R Palpation Assessment Location lumbar spine Palpation Details tenderness at L SIJ/PSIS No tenderness at midline L knee Palpation Details Increased bony girth at medial knee Tightness of hamstrings, boggy L hip Palpation Details Tightness at glute Tenderness over lateral- posterior hip near greater trochanter PT-OP-K Range of Motion Start: 06/30/24 11:30 Freq: Status: Active Protocol: Document 06/30/24 11:31 NM (Rec: 06/30/24 12:32 NM [id number]) Lumbar Spine Range of Motion Lumbar Spine Active Percentage Flexion 50 Extension 20 Lateral Flexion Left 50 Lateral Flexion Right 50 Comments 06/30/24: pain with lateral flexion B (L>R) Hip Goniometric Range of Motion Hip Right Flexion w/Knee Flexed 105 Internal Rotation 30 External Rotation 40 Comments HS: 125 deg Left Flexion w/Knee Flexed 105 Internal Rotation 28 External Rotation 30 Comments HS: 140 deg Knee Goniometric Range of Motion Knee Right Flexion Active (degrees) 120 Extension Active (degrees) 5 Left Flexion Active (degrees) 115 Extension Active (degrees) 4 PT-OP-L Special Tests Start: 06/30/24 11:30 Freq: Status: Active Protocol: Document 06/30/24 11:31 NM (Rec: 06/30/24 12:32 NM [id number]) Special Tests Lumbar Spine Special Tests Slump Test Results - Chavira/quadrant Test Results + R Comments local Hip Special Tests Stinchfield Resisted Hip Flexion Test Results + L FADIR Test Results + L Comments posterior hip BILLIE Test Results + L Comments posterior hip PT-OP-M Strength Start: 06/30/24 11:30 Freq: Status: Active Protocol: Document 08/02/24 13:50 NM (Rec: 08/02/24 14:32 NM [id number]) Hip Strength Hip Manual Muscle Testing Right Flexion (L2) 4 Good Extension (S1) 3+ Fair+ Abduction 4 Good Adduction 4 Good External Rotation 4 Good Internal Rotation 4 Good Left Flexion (L2) 4- Good- Extension (S1) 3+ Fair+ Abduction 4- Good- Adduction 4- Good- External Rotation 4- Good- Internal Rotation 4- Good- Comments pain with flexion Knee Strength Knee Manual Muscle Testing Right Flexion (S2) 4 Good Extension (L3) 4 Good Comments no pain Left Flexion (S2) 4- Good- Extension (L3) 4- Good- Comments audible crepitus PT-OP-Q Treatments Start: 06/30/24 11:30 Freq: Status: Active Protocol: Document 08/26/24 14:32 NM (Rec: 08/26/24 15:25 NM [id number]) Therapeutic Activity Therapeutic Activity floor transfers Name CGA w/ gait belt, chair Reps/Minutes 8 minutes Comments 1. via lunge > tall kneel > half kneel 2. to side sit > sitting > contralateral side sit 3. roll to quadruped and reverse #1 to stand Moderate cueing needed Neuro Re-Education Treatment Balance Activities ball toss Comments 1. STS > ball toss w/ large blue ball, 10 2. w/ staggered stance, front foot on black therapad, 10 ea leg R more challenging than L today 3. B feet on black pad Most challenging for pt anita due to visual dependence. Min A to maintain balance, less w/ ball toss. shuttle balance Details red Surface unstable Reps/Duration 8 min Comments 1. A/P NBOS 2. A/P staggered, ea foot 3. M/L uneven surfaces Details black therapad Surface unstable Comments normal SALVADOR Min A to prevent fall, cueing for equal WB, foot position; challenging Hurdles Comments 1. fwd reciprocal, 2x 6 hurdles foot catches hurdles several times, needs CGA- min A to correct and prevent fall 2. lateral, 2x 6 hurdles, CGA 3. reciprocal w/ foam steps between hurdles, 4 x 6 hurdles - min-mod A, several instances to prevent fall, tendency to R PT-OP-T Assessment and Plan Start: 06/30/24 11:30 Freq: Status: Active Protocol: Document 08/26/24 14:32 NM (Rec: 08/26/24 15:25 NM [id number]) Physical Therapy Assessment Goals Four Impairment not performing HEP Longterm Goal (LTG) Pt will report compliance with HEP at least 3x/wk in order to maximize progression with PT and to transition to [facility] program after discharge 07/22/24: performing HEP daily LTG Duration 10 weeks MET Three Impairment pain with stairs Rejected Items Clerk Goal (LTG) Pt will be able to perform at least 14 stairs with one or fewer handrails with pain <3/ 10 in knees in order to demonstrate improved functional mobility and symptom management 07/22/24: performed 2 step ups on LLE with 1 hand support, no knee pain 08/02/24: 15 steps with 1 finger support on rail for balance, no hip/knee pain; 1 instance increased sway LTG Duration 10 weeks PROGRESSING Two Impairment Penn score 31/56 indicating increased risk of falls, hx of falls Rejected Items Clerk Goal (LTG) Pt will improve Penn balance test score to at least 41/56 in order to demonstrate decreased fall risk and ability to ambulate without assistance 08/02/24: 38/56 LTG Duration 10 weeks PROGRESSING One Impairment STS transfers impaired Short Term Goal (STG) Pt will be able to perform at least 10 sit to stands from 21 surface or less with close SBA or better and without UE assistance or compensation in order to demonstrate improved initial standing balance and BLE strength for transfers 07/29/24: 10 from 18 chair w/ o UE assist STG Duration 5 weeks MET Longterm Goal (LTG) Pt will perform at least 5x STS from 21 height surface or lower without UE assistance or compensation and meet age- related norm of 14.8 sec or less in order to demonstrate improved initial standing balance and BLE strength for transfers 08/02/24: 17.2 sec in standard - 1 instances of more attempts to stand, 1 instance uncontrolled descent LTG Duration 10 weeks PROGRESSING Assessment Summary Assessment Pt blood pressure lower today, emphasis on balance training over resistance training. Continues to have strong visual dependence to maintain balance, especially with RLE. Several instance during session, min-mod A while stepping over surfaces or working on unstable surfaces to prevent fall. One instance where pt reports room feeling unsteady BP 158/73 mmHg, resolves with seated rest break. Improved floor transfers from side sitting but still needs cueing for correct execution to assist with floor recovery. Pt would continue to benefit from skilled PT for balance training and resistance training in order to decrease fall risk. Physical Therapy Plan Frequency and Duration Frequency of Treatment 2x/Week Duration of treatment (weeks) 10 Plan of Care Start Date 06/30/24 Plan of Care End Date 09/10/24 Therapeutic Interventions Therapeutic Interventions Balance Training,Gait Training ,Home Exercise Program,Joint Mobilizations,Manual Therapy, Neuromuscular Re-education, Orthotic/Prosthetic Management ,Patient/Caregiver Education, Self-Care/Home Management, Sensory Integration,Soft Tissue Mobilization,Taping, Therapeutic Activities, Therapeutic Exercises Modalities Cold Pack/Ice Massage,Hot Packs Next Visit Focus/Plan Next Note Type Treatment Note Next Visit Plan Shuttle balance, shuttle recovery uni squat. hurdles, can trial w/o foam, unstable surfaces and obstacle course. address goals. decrease visual dependence Cont lunges and 8 step up, leg press and balance training w/ less visual dependence and unstable surfaces, perturbations. POC: Add STS to HEP. Balance training. B leg press. Hip 3 way and leg press. Address balance: hurdles, stable/ unstable surfaces Manual to HS, L hips and L knee, STM to lumbar spine Balance training, education on fall reduction strategies POC: global hip/knee/trunk strength, balance, step ups, transfers (trial quadruped and floor transfers)
--- NOTE | 2024-08-31 16:17 | PT.OTN ---
Current Diagnoses Pain in left hip (08/31/24) Stiffness of left hip, not elsewhere classified (08/31/24) Stiffness of left knee, not elsewhere classified (08/31/24) Stiffness of other specified joint, not elsewhere classified (08/31/24) Other lack of coordination (08/31/24) Weakness (08/31/24) Physical Therapy Treatment Note PT-OP-A Visit Information Start: 06/30/24 11:30 Freq: Status: Active Protocol: Document 08/31/24 15:20 SW (Rec: 08/31/24 16:16 SW [id number]) Out-Patient Physical Therapy Visit Information Visit Information Visit Type Treatment Note Visit Note 177/84 mmHg L arm SOS 160/86 150/78 mmHg L arm EOS Visit Start Time 14:16 Visit Stop Time 14:56 Visit Number 13 Number of DATA ENTRY OPERATOR Visits 1 Precautions Precautions Hx of falls PT-OP-B Current Condition Start: 06/30/24 11:30 Freq: Status: Active Protocol: Document 06/30/24 11:31 NM (Rec: 06/30/24 12:32 NM [id number]) Current Condition History of Current Condition Onset Date April 2024 History of Current Condition Pt presents with L hip and knee pain. Pt reports that he fell down the stairs in a hotel, 05/10/24. He fell down 3 -4 steps. He fell onto that L side. He was able to immediately walk afterward but needed assitance to stand, required hand rail. He has had xrays. No other imaging or assessments. He reports pain in hip with sleeping, less with ambulating. He reports his L knee bothers him with walking, stairs. He has a flight of stairs in his home ( 2 flights of about 14), has L hand rail with ascent; has 5-6 steps on front porch with B rails. Pt denies any other falls, no near misses, but he does report a concern about falling due to balance. Lives with . Pt reports has been exercises for his hip ( twisting, side bends, things he's done in past), reports makes him feel better; performed in standing; has also done leg raises on floor (side hip abd). Pt reports that he has also had back pain since the fall, he has been taking icy-hot and tylenol ( recently eliminated). L>R back pain, about waistline, no midline pain. Pt has not had imaging of back. No hx of back pain prior to fall. Reports no numbness/tingling/burning in legs. Reports other day when getting out of boat after rowing, could not move legs and states unable to stand up (from quadruped), needed 2 hand assist to stand. He reports that this was 1st time on hands/knees since fall, states due to friction from unfinished concrete. He can get in/out of boat without problem if holding onto something. Prior Treatments and Tests Radiograph of L hip 05/2024: No acute osseous abnormality Radiograph of L knee 05/2024: No acute osseous abnormality. Small joint effusion. 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 Treatment Goals Patient/Caregiver Goals preferably decreased pain Current Functional Impairments (Reported) Functional Limitations- Mobility/Gait 1 mi during walk (includes hill)- fatigues Functional Limitations- Recreation/ light weight exercise, Hobbies elliptical on occasion (last 3 weeks) PT-OP-C Subjective Start: 06/30/24 11:30 Freq: Status: Active Protocol: Document 08/31/24 15:20 SW (Rec: 08/31/24 16:16 SW [id number]) OP-PT Subjective Patient Comments Patient Comments Pt reports started BP medicine medicine x 3 days ago. PT-OP-D Balance Start: 06/30/24 11:30 Freq: Status: Active Protocol: Document 06/30/24 11:31 NM (Rec: 06/30/24 12:32 NM [id number]) Balance Tests Penn Balance Test Penn Balance Test Score 31/56 Single Limb Standing Single Limb- Right 1 sec Single Limb- Left 1 sec PT-OP-E Functional Tests Start: 06/30/24 11:30 Freq: Status: Active Protocol: Document 06/30/24 11:31 NM (Rec: 06/30/24 12:32 NM [id number]) Functional Tests 30 Second Sit to Stand Test Score 11 Comments 21; reports no hip/knee pain, feels better Five Times Sit to Stand Test Score 12 sec Comments 21; reports no hip/knee pain; uses BLE to stab; poor stand balance PT-OP-F Manual Assessment Start: 06/30/24 11:30 Freq: Status: Active Protocol: Document 06/30/24 11:31 NM (Rec: 06/30/24 12:32 NM [id number]) Manual Assessments Soft Tissue Assessment Soft Tissue Mobility Assessment Decreased HS length B Joint Mobility Assessment Joint Mobility Assessment Decreased L hip and knee mobility AROM/PROM but not painful except at end range. Hypomobility of lumbar and SIJ PT-OP-G Mobility & Gait Start: 06/30/24 11:30 Freq: Status: Active Protocol: Document 06/30/24 11:31 NM (Rec: 06/30/24 12:47 NM [id number]) OP Gait Assessment Gait Gait Assistance Required: Independent Distance (Feet) 150 Assistive Devices Assistive Device None Gait Deviations General Gait Pattern Antalgic,Wide Based Gait Factors Limiting Gait Function Factors Limiting Gait Function Decreased Activity Tolerance, Decreased Strength,Limited Range of Motion,Pain,Poor Balance Comments Gait Comments Demos B knee flexion and slight hip flexion with stance . Antalgic gait, wider stance and SALVADOR with B hip ER, L>R PT-OP-J Posture/Palpation/Skin Start: 06/30/24 11:30 Freq: Status: Active Protocol: Document 06/30/24 11:31 NM (Rec: 06/30/24 12:32 NM [id number]) Posture Evaluation Position Standing Head/C-Spine Posture Forward Head L-Spine Posture Increased Lordosis Shoulder Posture (L) Rounded,(R) Rounded Pelvis Posture (L) Rotated Anterior,(L) Iliac Crest Superior Comments Posture Comments Increased knee flexion B, B hip ER L>R Palpation Assessment Location lumbar spine Palpation Details tenderness at L SIJ/PSIS No tenderness at midline L knee Palpation Details Increased bony girth at medial knee Tightness of hamstrings, boggy L hip Palpation Details Tightness at glute Tenderness over lateral- posterior hip near greater trochanter PT-OP-K Range of Motion Start: 06/30/24 11:30 Freq: Status: Active Protocol: Document 06/30/24 11:31 NM (Rec: 06/30/24 12:32 NM [id number]) Lumbar Spine Range of Motion Lumbar Spine Active Percentage Flexion 50 Extension 20 Lateral Flexion Left 50 Lateral Flexion Right 50 Comments 06/30/24: pain with lateral flexion B (L>R) Hip Goniometric Range of Motion Hip Right Flexion w/Knee Flexed 105 Internal Rotation 30 External Rotation 40 Comments HS: 125 deg Left Flexion w/Knee Flexed 105 Internal Rotation 28 External Rotation 30 Comments HS: 140 deg Knee Goniometric Range of Motion Knee Right Flexion Active (degrees) 120 Extension Active (degrees) 5 Left Flexion Active (degrees) 115 Extension Active (degrees) 4 PT-OP-L Special Tests Start: 06/30/24 11:30 Freq: Status: Active Protocol: Document 06/30/24 11:31 NM (Rec: 06/30/24 12:32 NM [id number]) Special Tests Lumbar Spine Special Tests Slump Test Results - Chavira/quadrant Test Results + R Comments local Hip Special Tests Stinchfield Resisted Hip Flexion Test Results + L FADIR Test Results + L Comments posterior hip BILLIE Test Results + L Comments posterior hip PT-OP-M Strength Start: 06/30/24 11:30 Freq: Status: Active Protocol: Document 08/02/24 13:50 NM (Rec: 08/02/24 14:32 NM [id number]) Hip Strength Hip Manual Muscle Testing Right Flexion (L2) 4 Good Extension (S1) 3+ Fair+ Abduction 4 Good Adduction 4 Good External Rotation 4 Good Internal Rotation 4 Good Left Flexion (L2) 4- Good- Extension (S1) 3+ Fair+ Abduction 4- Good- Adduction 4- Good- External Rotation 4- Good- Internal Rotation 4- Good- Comments pain with flexion Knee Strength Knee Manual Muscle Testing Right Flexion (S2) 4 Good Extension (L3) 4 Good Comments no pain Left Flexion (S2) 4- Good- Extension (L3) 4- Good- Comments audible crepitus PT-OP-Q Treatments Start: 06/30/24 11:30 Freq: Status: Active Protocol: Document 08/31/24 15:20 SW (Rec: 08/31/24 16:16 SW [id number]) Gym Equipment Shuttle Recovery SL squat Details SL squat Resistance 62# (2 teal) Shuttle Recovery Platform Stable Reps/Time tolerated well, with no increase in pain Therapeutic Activity Therapeutic Activity Vitals Name BP Reps/Minutes 8' Comments Initial BP SOS: 177/84 mmHg after rest for 5': 160/86 mmHg EOS: 150/78 mmHg Neuro Re-Education Treatment Balance Activities shuttle balance Details red Surface unstable Reps/Duration 8 min Comments 1. A/P NBOS 2. A/P staggered, ea foot 3. M/L Hurdles Surface blue mat Comments 1. Step to pattern, cued pt to gain balance prior to initiating next step 4 x 6 hurdles 2. Reciprocal stepping, CGA, x 2 near LOB Ryan to upright 4 x 6 hurdles PT-OP-T Assessment and Plan Start: 06/30/24 11:30 Freq: Status: Active Protocol: Document 08/31/24 15:20 SW (Rec: 08/31/24 16:16 SW [id number]) Physical Therapy Assessment Goals Four Impairment not performing HEP Prison Goal (LTG) Pt will report compliance with HEP at least 3x/wk in order to maximize progression with PT and to transition to [facility] program after discharge 07/22/24: performing HEP daily LTG Duration 10 weeks MET Three Impairment pain with stairs Experimental Machinist Goal (LTG) Pt will be able to perform at least 14 stairs with one or fewer handrails with pain <3/ 10 in knees in order to demonstrate improved functional mobility and symptom management 07/22/24: performed 2 step ups on LLE with 1 hand support, no knee pain 08/02/24: 15 steps with 1 finger support on rail for balance, no hip/knee pain; 1 instance increased sway 08/31/24: Pt reports no knee pain with x1 finger support on rail for balance LTG Duration 10 weeks MET (08/31/24) Two Impairment Penn score 31/56 indicating increased risk of falls, hx of falls Prison Goal (LTG) Pt will improve Penn balance test score to at least 41/56 in order to demonstrate decreased fall risk and ability to ambulate without assistance 08/02/24: 38/56 LTG Duration 10 weeks PROGRESSING One Impairment STS transfers impaired Short Term Goal (STG) Pt will be able to perform at least 10 sit to stands from 21 surface or less with close SBA or better and without UE assistance or compensation in order to demonstrate improved initial standing balance and BLE strength for transfers 07/29/24: 10 from 18 chair w/ o UE assist STG Duration 5 weeks MET Prison Goal (LTG) Pt will perform at least 5x STS from 21 height surface or lower without UE assistance or compensation and meet age- related norm of 14.8 sec or less in order to demonstrate improved initial standing balance and BLE strength for transfers 08/02/24: 17.2 sec in standard - 1 instances of more attempts to stand, 1 instance uncontrolled descent LTG Duration 10 weeks PROGRESSING Assessment Summary Assessment Pt achieved pain with stairs goal, reporting no pain with stairs, x 1 finger assist on handrail for balance support. Overall pt tolerated session well today with focus on balance this session, cues for less visual reliance and challenged with unstable SALVADOR, requiring CGA>Ryan througout session. Pt started BP medication x 3 days ago monitored throughout session, and monitored for change in pt for symptoms. Rest breaks given throughout session. Physical Therapy Plan Frequency and Duration Frequency of Treatment 2x/Week Duration of treatment (weeks) 10 Plan of Care Start Date 06/30/24 Plan of Care End Date 09/10/24 Therapeutic Interventions Therapeutic Interventions Balance Training,Gait Training ,Home Exercise Program,Joint Mobilizations,Manual Therapy, Neuromuscular Re-education, Orthotic/Prosthetic Management ,Patient/Caregiver Education, Self-Care/Home Management, Sensory Integration,Soft Tissue Mobilization,Taping, Therapeutic Activities, Therapeutic Exercises Modalities Cold Pack/Ice Massage,Hot Packs Next Visit Focus/Plan Next Note Type Treatment Note Next Visit Plan Shuttle balance, shuttle recovery uni squat. hurdles, can trial w/o foam, unstable surfaces and obstacle course. address goals. decrease visual dependence Cont lunges and 8 step up, leg press and balance training w/ less visual dependence and unstable surfaces, perturbations. POC: Add STS to HEP. Balance training. B leg press. Hip 3 way and leg press. Address balance: hurdles, stable/ unstable surfaces Manual to HS, L hips and L knee, STM to lumbar spine Balance training, education on fall reduction strategies POC: global hip/knee/trunk strength, balance, step ups, transfers (trial quadruped and floor transfers)
--- NOTE | 2024-09-02 16:18 | PT.OTN ---
Current Diagnoses Pain in left hip (09/02/24) Stiffness of left hip, not elsewhere classified (09/02/24) Stiffness of left knee, not elsewhere classified (09/02/24) Stiffness of other specified joint, not elsewhere classified (09/02/24) Other lack of coordination (09/02/24) Weakness (09/02/24) Physical Therapy Treatment Note PT-OP-A Visit Information Start: 06/30/24 11:30 Freq: Status: Active Protocol: Document 09/02/24 15:23 SW (Rec: 09/02/24 16:18 SW [id number]) Out-Patient Physical Therapy Visit Information Visit Information Visit Type Treatment Note Visit Note 140/73 mmHg Visit Start Time 15:20 Visit Stop Time 16:03 Visit Number 14 Number of [employer]PEDITION[employer]HT[employer] Visits 2 Precautions Precautions Hx of falls PT-OP-B Current Condition Start: 06/30/24 11:30 Freq: Status: Active Protocol: Document 06/30/24 11:31 NM (Rec: 06/30/24 12:32 NM [id number]) Current Condition History of Current Condition Onset Date April 2024 History of Current Condition Pt presents with L hip and knee pain. Pt reports that he fell down the stairs in a hotel, 05/10/24. He fell down 3 -4 steps. He fell onto that L side. He was able to immediately walk afterward but needed assitance to stand, required hand rail. He has had xrays. No other imaging or assessments. He reports pain in hip with sleeping, less with ambulating. He reports his L knee bothers him with walking, stairs. He has a flight of stairs in his home ( 2 flights of about 14), has L hand rail with ascent; has 5-6 steps on front porch with B rails. Pt denies any other falls, no near misses, but he does report a concern about falling due to balance. Lives with . Pt reports has been exercises for his hip ( twisting, side bends, things he's done in past), reports makes him feel better; performed in standing; has also done leg raises on floor (side hip abd). Pt reports that he has also had back pain since the fall, he has been taking icy-hot and tylenol ( recently eliminated). L>R back pain, about waistline, no midline pain. Pt has not had imaging of back. No hx of back pain prior to fall. Reports no numbness/tingling/burning in legs. Reports other day when getting out of boat after rowing, could not move legs and states unable to stand up (from quadruped), needed 2 hand assist to stand. He reports that this was 1st time on hands/knees since fall, states due to friction from unfinished concrete. He can get in/out of boat without problem if holding onto something. Prior Treatments and Tests Radiograph of L hip 05/2024: No acute osseous abnormality Radiograph of L knee 05/2024: No acute osseous abnormality. Small joint effusion. 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 Treatment Goals Patient/Caregiver Goals preferably decreased pain Current Functional Impairments (Reported) Functional Limitations- Mobility/Gait 1 mi during walk (includes hill)- fatigues Functional Limitations- Recreation/ light weight exercise, Hobbies elliptical on occasion (last 3 weeks) PT-OP-C Subjective Start: 06/30/24 11:30 Freq: Status: Active Protocol: Document 09/02/24 15:23 SW (Rec: 09/02/24 16:18 SW [id number]) OP-PT Subjective Patient Comments Patient Comments Pt reports happy with progress , disappointed not doing better. PT-OP-D Balance Start: 06/30/24 11:30 Freq: Status: Active Protocol: Document 06/30/24 11:31 NM (Rec: 06/30/24 12:32 NM [id number]) Balance Tests Penn Balance Test Penn Balance Test Score 31/56 Single Limb Standing Single Limb- Right 1 sec Single Limb- Left 1 sec PT-OP-E Functional Tests Start: 06/30/24 11:30 Freq: Status: Active Protocol: Document 06/30/24 11:31 NM (Rec: 06/30/24 12:32 NM [id number]) Functional Tests 30 Second Sit to Stand Test Score 11 Comments 21; reports no hip/knee pain, feels better Five Times Sit to Stand Test Score 12 sec Comments 21; reports no hip/knee pain; uses BLE to stab; poor stand balance PT-OP-F Manual Assessment Start: 06/30/24 11:30 Freq: Status: Active Protocol: Document 06/30/24 11:31 NM (Rec: 06/30/24 12:32 NM [id number]) Manual Assessments Soft Tissue Assessment Soft Tissue Mobility Assessment Decreased HS length B Joint Mobility Assessment Joint Mobility Assessment Decreased L hip and knee mobility AROM/PROM but not painful except at end range. Hypomobility of lumbar and SIJ PT-OP-G Mobility & Gait Start: 06/30/24 11:30 Freq: Status: Active Protocol: Document 06/30/24 11:31 NM (Rec: 06/30/24 12:47 NM [id number]) OP Gait Assessment Gait Gait Assistance Required: Independent Distance (Feet) 150 Assistive Devices Assistive Device None Gait Deviations General Gait Pattern Antalgic,Wide Based Gait Factors Limiting Gait Function Factors Limiting Gait Function Decreased Activity Tolerance, Decreased Strength,Limited Range of Motion,Pain,Poor Balance Comments Gait Comments Demos B knee flexion and slight hip flexion with stance . Antalgic gait, wider stance and SALVADOR with B hip ER, L>R PT-OP-J Posture/Palpation/Skin Start: 06/30/24 11:30 Freq: Status: Active Protocol: Document 06/30/24 11:31 NM (Rec: 06/30/24 12:32 NM [id number]) Posture Evaluation Position Standing Head/C-Spine Posture Forward Head L-Spine Posture Increased Lordosis Shoulder Posture (L) Rounded,(R) Rounded Pelvis Posture (L) Rotated Anterior,(L) Iliac Crest Superior Comments Posture Comments Increased knee flexion B, B hip ER L>R Palpation Assessment Location lumbar spine Palpation Details tenderness at L SIJ/PSIS No tenderness at midline L knee Palpation Details Increased bony girth at medial knee Tightness of hamstrings, boggy L hip Palpation Details Tightness at glute Tenderness over lateral- posterior hip near greater trochanter PT-OP-K Range of Motion Start: 06/30/24 11:30 Freq: Status: Active Protocol: Document 06/30/24 11:31 NM (Rec: 06/30/24 12:32 NM [id number]) Lumbar Spine Range of Motion Lumbar Spine Active Percentage Flexion 50 Extension 20 Lateral Flexion Left 50 Lateral Flexion Right 50 Comments 06/30/24: pain with lateral flexion B (L>R) Hip Goniometric Range of Motion Hip Right Flexion w/Knee Flexed 105 Internal Rotation 30 External Rotation 40 Comments HS: 125 deg Left Flexion w/Knee Flexed 105 Internal Rotation 28 External Rotation 30 Comments HS: 140 deg Knee Goniometric Range of Motion Knee Right Flexion Active (degrees) 120 Extension Active (degrees) 5 Left Flexion Active (degrees) 115 Extension Active (degrees) 4 PT-OP-L Special Tests Start: 06/30/24 11:30 Freq: Status: Active Protocol: Document 06/30/24 11:31 NM (Rec: 06/30/24 12:32 NM [id number]) Special Tests Lumbar Spine Special Tests Slump Test Results - Chavira/quadrant Test Results + R Comments local Hip Special Tests Stinchfield Resisted Hip Flexion Test Results + L FADIR Test Results + L Comments posterior hip BILLIE Test Results + L Comments posterior hip PT-OP-M Strength Start: 06/30/24 11:30 Freq: Status: Active Protocol: Document 08/02/24 13:50 NM (Rec: 08/02/24 14:32 NM [id number]) Hip Strength Hip Manual Muscle Testing Right Flexion (L2) 4 Good Extension (S1) 3+ Fair+ Abduction 4 Good Adduction 4 Good External Rotation 4 Good Internal Rotation 4 Good Left Flexion (L2) 4- Good- Extension (S1) 3+ Fair+ Abduction 4- Good- Adduction 4- Good- External Rotation 4- Good- Internal Rotation 4- Good- Comments pain with flexion Knee Strength Knee Manual Muscle Testing Right Flexion (S2) 4 Good Extension (L3) 4 Good Comments no pain Left Flexion (S2) 4- Good- Extension (L3) 4- Good- Comments audible crepitus PT-OP-Q Treatments Start: 06/30/24 11:30 Freq: Status: Active Protocol: Document 09/02/24 15:23 SW (Rec: 09/02/24 16:18 SW [id number]) Gym Equipment Shuttle Recovery SL squat Details SL squat Resistance 62# (2 teal) Shuttle Recovery Platform Stable Reps/Time tolerated well, with no increase in pain Therapeutic Exercises Standing Exercises lunges Standing Exercise Name HEP review Side bilateral Equipment Used // bars Reps/Minutes x3 ea Comments challenging Neuro Re-Education Treatment Balance Activities Changing SALVDAOR Details Step taps standing on Foam Surface unstable Equipment // bars, gait belt Comments Step taps standing on foam, CGA>Ryan shuttle balance Details red Surface unstable Reps/Duration 8 min Comments 1. A/P NBOS 2. A/P staggered, ea foot 3. M/L 4. weight shifts SLS Details HEP issued Surface stable Equipment Hand support prn Reps/Duration multiple trials Comments forward gaze, pt education on setup for safety at home Hurdles Details Hurdles Comments 1. Fwd 2. Lateral 3. With foam PT-OP-T Assessment and Plan Start: 06/30/24 11:30 Freq: Status: Active Protocol: Document 09/02/24 15:23 (Rec: 09/02/24 16:18 [id number]) Physical Therapy Assessment Goals Four Impairment not performing HEP Fpc Goal (LTG) Pt will report compliance with HEP at least 3x/wk in order to maximize progression with PT and to transition to maitenance program after discharge 07/22/24: performing HEP daily LTG Duration 10 weeks MET Three Impairment pain with stairs Fpc Goal (LTG) Pt will be able to perform at least 14 stairs with one or fewer handrails with pain <3/ 10 in knees in order to demonstrate improved functional mobility and symptom management 07/22/24: performed 2 step ups on LLE with 1 hand support, no knee pain 08/02/24: 15 steps with 1 finger support on rail for balance, no hip/knee pain; 1 instance increased sway 08/31/24: Pt reports no knee pain with x1 finger support on rail for balance LTG Duration 10 weeks MET (08/31/24) Two Impairment Penn score 31/56 indicating increased risk of falls, hx of falls Fpc Goal (LTG) Pt will improve Penn balance test score to at least 41/56 in order to demonstrate decreased fall risk and ability to ambulate without assistance 08/02/24: 38/56 LTG Duration 10 weeks PROGRESSING One Impairment STS transfers impaired Short Term Goal (STG) Pt will be able to perform at least 10 sit to stands from 21 surface or less with close SBA or better and without UE assistance or compensation in order to demonstrate improved initial standing balance and BLE strength for transfers 07/29/24: 10 from 18 chair w/ o UE assist STG Duration 5 weeks MET Song Plugger Goal (LTG) Pt will perform at least 5x STS from 21 height surface or lower without UE assistance or compensation and meet age- related norm of 14.8 sec or less in order to demonstrate improved initial standing balance and BLE strength for transfers 08/02/24: 17.2 sec in standard - 1 instances of more attempts to stand, 1 instance uncontrolled descent LTG Duration 10 weeks PROGRESSING Assessment Summary Assessment Pt deomonstrated less shaking with exercises this session. Pt blood pressure improved at start of session, pt reports tolerating BP medication better. Continued balance challenges, improvement on shuttle recovery this session, able to balance ~10 w/out UE hold, improvement from previous session only able to balance for less than 5. Issued HEP HO for SLS balance at counter for support for balance challenge at home, instructed pt for safety and setup. Physical Therapy Plan Frequency and Duration Frequency of Treatment 2x/Week Duration of treatment (weeks) 10 Plan of Care Start Date 06/30/24 Plan of Care End Date 09/10/24 Therapeutic Interventions Therapeutic Interventions Balance Training,Gait Training ,Home Exercise Program,Joint Mobilizations,Manual Therapy, Neuromuscular Re-education, Orthotic/Prosthetic Management ,Patient/Caregiver Education, Self-Care/Home Management, Sensory Integration,Soft Tissue Mobilization,Taping, Therapeutic Activities, Therapeutic Exercises Modalities Cold Pack/Ice Massage,Hot Packs Next Visit Focus/Plan Next Note Type Treatment Note Next Visit Plan Shuttle balance, shuttle recovery uni squat. hurdles, with foam, unstable surfaces and obstacle course. address goals. decrease visual dependence Cont lunges and 8 step up, leg press and balance training w/ less visual dependence and unstable surfaces, perturbations. POC: Balance training. B leg press. Hip 3 way and leg press . Address balance: hurdles, stable/unstable surfaces Manual to HS, L hips and L knee, STM to lumbar spine Balance training, education on fall reduction strategies POC: global hip/knee/trunk strength, balance, step ups, transfers (trial quadruped and floor transfers)
--- NOTE | 2024-09-10 15:34 | PT.OTN ---
Current Diagnoses Pain in left hip (09/10/24) Stiffness of left hip, not elsewhere classified (09/10/24) Stiffness of left knee, not elsewhere classified (09/10/24) Stiffness of other specified joint, not elsewhere classified (09/10/24) Other lack of coordination (09/10/24) Weakness (09/10/24) Physical Therapy Treatment Note PT-OP-A Visit Information Start: 06/30/24 11:30 Freq: Status: Active Protocol: Document 09/10/24 14:31 NM (Rec: 09/10/24 15:34 NM [id number]) Out-Patient Physical Therapy Visit Information Visit Information Visit Type Discharge Summary Visit Note R arm SOS: 139/61 mmHg Visit Start Time 14:33 Visit Stop Time 15:15 Visit Number 15 Evaluation Information Evaluation Date 06/30/24 Precautions Precautions Hx of falls PT-OP-B Current Condition Start: 06/30/24 11:30 Freq: Status: Active Protocol: Document 06/30/24 11:31 NM (Rec: 06/30/24 12:32 NM [id number]) Current Condition History of Current Condition Onset Date April 2024 History of Current Condition Pt presents with L hip and knee pain. Pt reports that he fell down the stairs in a hotel, 05/10/24. He fell down 3 -4 steps. He fell onto that L side. He was able to immediately walk afterward but needed assitance to stand, required hand rail. He has had xrays. No other imaging or assessments. He reports pain in hip with sleeping, less with ambulating. He reports his L knee bothers him with walking, stairs. He has a flight of stairs in his home ( 2 flights of about 14), has L hand rail with ascent; has 5-6 steps on front porch with B rails. Pt denies any other falls, no near misses, but he does report a concern about falling due to balance. Lives with . Pt reports has been exercises for his hip ( twisting, side bends, things he's done in past), reports makes him feel better; performed in standing; has also done leg raises on floor (side hip abd). Pt reports that he has also had back pain since the fall, he has been taking icy-hot and tylenol ( recently eliminated). L>R back pain, about waistline, no midline pain. Pt has not had imaging of back. No hx of back pain prior to fall. Reports no numbness/tingling/burning in legs. Reports other day when getting out of boat after rowing, could not move legs and states unable to stand up (from quadruped), needed 2 hand assist to stand. He reports that this was 1st time on hands/knees since fall, states due to friction from unfinished concrete. He can get in/out of boat without problem if holding onto something. Prior Treatments and Tests Radiograph of L hip 05/2024: No acute osseous abnormality Radiograph of L knee 05/2024: No acute osseous abnormality. Small joint effusion. 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 Treatment Goals Patient/Caregiver Goals preferably decreased pain Current Functional Impairments (Reported) Functional Limitations- Mobility/Gait 1 mi during walk (includes hill)- fatigues Functional Limitations- Recreation/ light weight exercise, Hobbies elliptical on occasion (last 3 weeks) PT-OP-C Subjective Start: 06/30/24 11:30 Freq: Status: Active Protocol: Document 09/10/24 14:31 NM (Rec: 09/10/24 15:34 NM [id number]) OP-PT Subjective Patient Comments Patient Comments Pt reports that feels like his balance is worse following start of new blood pressure medication. He states his blood pressure is more appropriate. Taking 1x/day for last several weeks. Reports light headed as he bends over when walking with dog. No falls. He reports improvement since starting PT. PT-OP-D Balance Start: 06/30/24 11:30 Freq: Status: Active Protocol: Document 06/30/24 11:31 NM (Rec: 06/30/24 12:32 NM [id number]) Balance Tests Penn Balance Test Penn Balance Test Score 31/56 Single Limb Standing Single Limb- Right 1 sec Single Limb- Left 1 sec PT-OP-E Functional Tests Start: 06/30/24 11:30 Freq: Status: Active Protocol: Document 06/30/24 11:31 NM (Rec: 06/30/24 12:32 NM [id number]) Functional Tests 30 Second Sit to Stand Test Score 11 Comments 21; reports no hip/knee pain, feels better Five Times Sit to Stand Test Score 12 sec Comments 21; reports no hip/knee pain; uses BLE to stab; poor stand balance PT-OP-F Manual Assessment Start: 06/30/24 11:30 Freq: Status: Active Protocol: Document 06/30/24 11:31 NM (Rec: 06/30/24 12:32 NM [id number]) Manual Assessments Soft Tissue Assessment Soft Tissue Mobility Assessment Decreased HS length B Joint Mobility Assessment Joint Mobility Assessment Decreased L hip and knee mobility AROM/PROM but not painful except at end range. Hypomobility of lumbar and SIJ PT-OP-G Mobility & Gait Start: 06/30/24 11:30 Freq: Status: Active Protocol: Document 06/30/24 11:31 NM (Rec: 06/30/24 12:47 NM [id number]) OP Gait Assessment Gait Gait Assistance Required: Independent Distance (Feet) 150 Assistive Devices Assistive Device None Gait Deviations General Gait Pattern Antalgic,Wide Based Gait Factors Limiting Gait Function Factors Limiting Gait Function Decreased Activity Tolerance, Decreased Strength,Limited Range of Motion,Pain,Poor Balance Comments Gait Comments Demos B knee flexion and slight hip flexion with stance . Antalgic gait, wider stance and SALVADOR with B hip ER, L>R PT-OP-J Posture/Palpation/Skin Start: 06/30/24 11:30 Freq: Status: Active Protocol: Document 06/30/24 11:31 NM (Rec: 06/30/24 12:32 NM [id number]) Posture Evaluation Position Standing Head/C-Spine Posture Forward Head L-Spine Posture Increased Lordosis Shoulder Posture (L) Rounded,(R) Rounded Pelvis Posture (L) Rotated Anterior,(L) Iliac Crest Superior Comments Posture Comments Increased knee flexion B, B hip ER L>R Palpation Assessment Location lumbar spine Palpation Details tenderness at L SIJ/PSIS No tenderness at midline L knee Palpation Details Increased bony girth at medial knee Tightness of hamstrings, boggy L hip Palpation Details Tightness at glute Tenderness over lateral- posterior hip near greater trochanter PT-OP-K Range of Motion Start: 06/30/24 11:30 Freq: Status: Active Protocol: Document 06/30/24 11:31 NM (Rec: 06/30/24 12:32 NM [id number]) Lumbar Spine Range of Motion Lumbar Spine Active Percentage Flexion 50 Extension 20 Lateral Flexion Left 50 Lateral Flexion Right 50 Comments 10/16/24: pain with lateral flexion B (L>R) Hip Goniometric Range of Motion Hip Right Flexion w/Knee Flexed 105 Internal Rotation 30 External Rotation 40 Comments HS: 125 deg Left Flexion w/Knee Flexed 105 Internal Rotation 28 External Rotation 30 Comments HS: 140 deg Knee Goniometric Range of Motion Knee Right Flexion Active (degrees) 120 Extension Active (degrees) 5 Left Flexion Active (degrees) 115 Extension Active (degrees) 4 PT-OP-L Special Tests Start: 06/30/24 11:30 Freq: Status: Active Protocol: Document 06/30/24 11:31 NM (Rec: 06/30/24 12:32 NM [id number]) Special Tests Lumbar Spine Special Tests Slump Test Results - Chavira/quadrant Test Results + R Comments local Hip Special Tests Stinchfield Resisted Hip Flexion Test Results + L FADIR Test Results + L Comments posterior hip BILLIE Test Results + L Comments posterior hip PT-OP-M Strength Start: 06/30/24 11:30 Freq: Status: Active Protocol: Document 09/10/24 14:31 NM (Rec: 09/10/24 15:34 NM [id number]) Hip Strength Hip Manual Muscle Testing Right Flexion (L2) 4 Good Extension (S1) 4 Good Abduction 4 Good Adduction 4 Good External Rotation 4 Good Internal Rotation 4 Good Left Flexion (L2) 4 Good Extension (S1) 4 Good Abduction 4 Good Adduction 4 Good External Rotation 4 Good Internal Rotation 4 Good Comments pain with flexion Knee Strength Knee Manual Muscle Testing Right Flexion (S2) 4 Good Extension (L3) 4 Good Comments no pain Left Flexion (S2) 4 Good Extension (L3) 4 Good Comments audible crepitus PT-OP-Q Treatments Start: 06/30/24 11:30 Freq: Status: Active Protocol: Document 09/10/24 14:31 NM (Rec: 09/10/24 15:34 NM [id number]) Therapeutic Exercises Sitting Exercises sit to stand Sitting Exercise Name 1. 5x STS, 2. STS Side bilateral Resistance 2. level 3 band at thighs Equipment Used standard chair Reps/Minutes 1. 14 sec, 2. 15 Comments cued full ROM Standing Exercises lunges Standing Exercise Name HEP review Side bilateral Equipment Used 1 hand support Reps/Minutes [address] Standing Exercise Name HEP review: 1. flex, 2. abd, 3 . 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 Spc to provide more stability while bending over to pick up and delivery driver object Educated on trialing spc use at home during daily ambulation with dog to assist with temporary balance while bending over especially if windy conditions or if feeling lightheaded Penn Reps/Duration 47/56 Comments still most challenged with SLS , tandem, turning 360 deg SLS Details HEP review Surface stable Equipment hand support prn Reps/Duration 3x10 ea Comments periodic foot placement on ground to steady, requires more UE support Self-Care/Home Management Treatment Education Patient Education Fall Risk,Safety Other Education Educated on use of spc for picking up after dog in windy conditions at night Educated on continuing to keep BP log, let MD know about lightheadedness with medication as may need to adjust dosage depending on pt tolerance as body continues to adjust PT-OP-T Assessment and Plan Start: 06/30/24 11:30 Freq: Status: Active Protocol: Document 09/10/24 14:31 NM (Rec: 09/10/24 15:34 NM [id number]) Physical Therapy Assessment Goals Four Impairment not performing HEP Garment Steamer Goal (LTG) Pt will report compliance with HEP at least 3x/wk in order to maximize progression with PT and to transition to maitenance program after discharge 07/22/24: performing HEP daily LTG Duration 10 weeks MET Three Impairment pain with stairs Correction Goal (LTG) Pt will be able to perform at least 14 stairs with one or fewer handrails with pain <3/ 10 in knees in order to demonstrate improved functional mobility and symptom management 07/22/24: performed 2 step ups on LLE with 1 hand support, no knee pain 08/02/24: 15 steps with 1 finger support on rail for balance, no hip/knee pain; 1 instance increased sway 08/31/24: Pt reports no knee pain with x1 finger support on rail for balance LTG Duration 10 weeks MET (08/31/24) Two Impairment Penn score 31/56 indicating increased risk of falls, hx of falls Garment Steamer Goal (LTG) Pt will improve Penn balance test score to at least 41/56 in order to demonstrate decreased fall risk and ability to ambulate without assistance 08/02/24: 38/56 09/10/24: 47/56 LTG Duration 10 weeks MET One Impairment STS transfers impaired Short Term Goal (STG) Pt will be able to perform at least 10 sit to stands from 21 surface or less with close SBA or better and without UE assistance or compensation in order to demonstrate improved initial standing balance and BLE strength for transfers 07/29/24: 10 from 18 chair w/ o UE assist STG Duration 5 weeks MET Garment Steamer Goal (LTG) Pt will perform at least 5x STS from 21 height surface or lower without UE assistance or compensation and meet age- related norm of 14.8 sec or less in order to demonstrate improved initial standing balance and BLE strength for transfers 08/02/24: 17.2 sec in standard - 1 instances of more attempts to stand, 1 instance uncontrolled descent 09/10/24: 14 sec from standard chair, on UE assist LTG Duration 10 weeks MET Progress Towards Goals Progress Towards Goals Slow Progress due to Medical Issues,Goals Met Assessment Summary Assessment Session emphasis on establishing maintenance program. Progressed resistance with STS and hip 3 way. Cued for correct execution, control as needed as pt still has tendency to speed throught tasks, which decreases stability. Less hand support needed during lunges. Narrow SALVADOR and single leg stability still most challenging for pt; requires periodic cueing for safety to put hand down or foot down for stability. Pt asks several times today what am I doing again? during session, needs more cueing than normal. Education on use of spc at home (pt already has ) during daily ambulation if feels off balance when bending over; replicated in session with minimal cueing needed. Physical Therapy Plan Frequency and Duration Frequency of Treatment 2x/Week Duration of treatment (weeks) 10 Plan of Care Start Date 06/30/24 Plan of Care End Date 09/10/24 Therapeutic Interventions Therapeutic Interventions Balance Training,Gait Training ,Home Exercise Program,Joint Mobilizations,Manual Therapy, Neuromuscular Re-education, Orthotic/Prosthetic Management ,Patient/Caregiver Education, Self-Care/Home Management, Sensory Integration,Soft Tissue Mobilization,Taping, Therapeutic Activities, Therapeutic Exercises Modalities Cold Pack/Ice Massage,Hot Packs Discharge Physical Therapy Discharge Reasons Goals Met Discharge Comments PT and pt discussed discharge to maintenance program as pt has met PT goals and is compliant with HEP. Pt and PT in agreement; issued maintenance program to be performed 3x/wk. Next Visit Focus/Plan Next Note Type Discharge Summary Next Visit Plan discharge from PT
== END 2024-09-23 13:53 | disposition home or self-care (01) ==
LOC: PHYS 14:30
PROVIDERS: Family Provider Family Medicine; PCP Family Medicine; Referring Provider Family Medicine; Visit Provider Family Medicine
DX: M25.552 Pain in left hip (principal); M25.652 Stiffness of left hip, not elsewhere classified; M25.662 Stiffness of left knee, not elsewhere classified; M25.69 Stiffness of other specified joint, not elsewhere classified; R53.1 Weakness; R27.8 Other lack of coordination
CPT/HCPCS: 97110; 97112; 97140; 97161; 97530

== ENCOUNTER 2024-11-16 13:00 | Outpatient (RCR) | payer MEDICARE, OTHER, SELFPAY ==
--- NOTE | 2024-10-18 16:00 | PT.OIE ---
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 Address: [address] [place] [address] Email: [email or web address] Physical Therapy Initial Evaluation PT-OP-A Visit Information Start: 10/18/24 07:25 Freq: Status: Active Protocol: Document 10/18/24 13:47 NM (Rec: 10/18/24 14:32 NM [id number]) Out-Patient Physical Therapy Visit Information Visit Information Visit Type Initial Evaluation Visit Note KX after 19 visits Visit Start Time 13:47 Visit Stop Time 14:30 Visit Number 1 Evaluation Information Evaluation Date 10/18/24 Precautions Precautions hx of falls, lightheaded with positional changes PT-OP-B Current Condition Start: 10/18/24 07:25 Freq: Status: Active Protocol: Document 10/18/24 13:47 NM (Rec: 10/18/24 14:32 NM [id number]) Current Condition History of Current Condition Onset Date since March 2024 History of Current Condition Pt presents with balance difficulties, L knee pain, and L hip pain. L hip and knee pain originally began after pt fell down the stairs in March, landing on his L side. He states that his balance is improved following his last episode of PT. Reports still ambulating 1 mi with dog often , reports balance ok, not using and AD. Reports that he is having dizziness with standing, transitions from positional changes (sitting > standing). Lightheadedness but not dizziness for 10-15 seconds, worse with turning feels off balance. Reports difficulty with coming up to stand from a chair, feels like need to hold on to stand; not confident on stairs without rail. 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 Still having L knee and hip pain following fall down stairs prior to last PT episode of care. Most difficulty with stepping over or around objects. Treatment Goals Patient/Caregiver Goals gait speed, stepping over shower/curbs, improve balance, decrease pain PT-OP-C Subjective Start: 10/18/24 07:25 Freq: Status: Active Protocol: Document 10/18/24 13:47 NM (Rec: 10/18/24 14:32 NM [id number]) OP-PT Subjective Patient Comments Patient Comments Pt consents to participate in PT evaluation Patient Questionnaires Lower Extremity Functional Scale LEFS Score 68/80 OP-PT Pain Assessment Location L hip Pain Location Details posterior hip Intensity 2 Scale Used Numeric (0 - 10) Description Aching,Dull Other Pain Aggravating Factors hip rotation c/ turning L knee Pain Location Details lateral knee, joint line Intensity 4 Scale Used Numeric (0 - 10) Description Aching,Dull Description- Other grinding, crepitus Frequency Intermittent Pain Aggravating Factors Stair Climbing Other Pain Aggravating Factors 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 supervisor 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 picking; coming to stand PT-OP-D Balance Start: 10/18/24 07:25 Freq: Status: Active Protocol: Document 10/18/24 13:47 NM (Rec: 10/18/24 14:32 NM [id number]) Balance Tests mCTSIB mCTSIB Position 1 EO, stable: 30 sec mCTSIB Position 2 EC, stable: 30 sec mCTSIB Position 3 EO, unstable: 15 sec mCTSIB Position 4 EC, unstable: 5 sec Single Limb Standing Single Limb- Right 3 sec Single Limb- Left 1 sec Tandem Tandem Standing 10 sec PT-OP-E Functional Tests Start: 10/18/24 13:47 Freq: Status: Active Protocol: Document 10/18/24 13:47 NM (Rec: 10/18/24 14:32 NM [id number]) Functional Tests Five Times Sit to Stand Test Score 17.55 Comments standard chair; unsteady Functional Gait Assessment Score 09/13 PT-OP-F Manual Assessment Start: 10/18/24 07:25 Freq: Status: Active Protocol: Document 10/18/24 13:47 NM (Rec: 10/18/24 14:32 NM [id number]) Manual Assessments Soft Tissue Assessment Soft Tissue Mobility Assessment Increased restrictions of B hamstrings, hip flexors, and calves Joint Mobility Assessment Joint Mobility Assessment Decreased L knee PROM and AROM , empty end feel; more observable passive than active ROM Decreased L hip PROM and AROM with capsular pattern; rotation further limited by knee pain PT-OP-G Mobility & Gait Start: 10/18/24 07:25 Freq: Status: Active Protocol: Document 10/18/24 13:47 NM (Rec: 10/18/24 14:32 NM [id number]) OP Gait Assessment Gait Gait Assistance Required: Standby Assistance Distance (Feet) 150 Assistive Devices Assistive Device Gait Belt Gait Deviations General Gait Pattern Antalgic,Decreased Feet Clearance,Flexed Trunk Factors Limiting Gait Function Factors Limiting Gait Function Decreased Activity Tolerance, Decreased Strength,Limited Range of Motion,Pain,Poor Balance Comments Gait Comments does not use AD Stair Climbing Evaluation Evaluation Level of Assist On Stairs Contact Guard Assistance Technique/Endurance Stair Climbing Direction Ascend and Descend Stair Climbing Technique Step Over Step Number of Steps Climbed 4 Stair Climbing Set # Repetitions (reps) 1 Comments Stair Climbing Comments L lateral hip pain with ascent . Demos poor control with descent, leaning on rails vs use of rails for hand support or balance. Unsteadiness with turning on stairs PT-OP-J Posture/Palpation/Skin Start: 10/18/24 07:25 Freq: Status: Active Protocol: Document 10/18/24 13:47 NM (Rec: 10/18/24 14:32 NM [id number]) Posture Evaluation Position Standing Head/C-Spine Posture Forward Head T-Spine Posture Increased Kyphosis Shoulder Posture (L) Rounded,(R) Rounded Pelvis Posture Posterior Tilted Weight Distribution Weight Shifted Right Hip Posture (L) Externally Rotated,(R) Externally Rotated Knee Posture (L) Genu Varus,(R) Genu Varus Comments Posture Comments increased trunk flexion, maintains B knee flexion in stance and gait Palpation Assessment Location L hip Palpation Details Tenderness to palpation and tightness of TFL, glutes, and deep hip anteriorly L knee Palpation Details Tenderness along both medial and lateral joint lines and compartments. increased restrictions of hamstrings and muscle inserting into pes anserine; quad tightness Limited patellar mobility maintains knee flexion at all times PT-OP-K Range of Motion Start: 10/18/24 07:25 Freq: Status: Active Protocol: Document 10/18/24 13:47 NM (Rec: 10/18/24 14:32 NM [id number]) Hip Goniometric Range of Motion Hip Right Flexion w/Knee Flexed 108 Internal Rotation 28 External Rotation 28 Left Flexion w/Knee Flexed 95 Internal Rotation 28 External Rotation 25 Comments pain at medial knee, limited hip ROM with IR Knee Goniometric Range of Motion Knee Right Flexion Active (degrees) 118 Extension Active (degrees) 5 Left Flexion Active (degrees) 95 Extension Active (degrees) 8 Comments pain with flex, end range ext PT-OP-L Special Tests Start: 10/18/24 07:25 Freq: Status: Active Protocol: Document 10/18/24 13:47 NM (Rec: 10/18/24 15:40 NM [id number]) Special Tests Hip Special Tests [facility] Resisted Hip Flexion Test Results - FADIR Test Results + Comments limited at hip, mild pain BILLIE Test Results + Comments knee and hip posteriorly Knee Special Tests Swetha Test Results - Varus Test Results - Valgus Test Results - PT-OP-M Strength Start: 10/18/24 07:25 Freq: Status: Active Protocol: Document 10/18/24 13:47 NM (Rec: 10/18/24 14:32 NM [id number]) Hip Strength Hip Manual Muscle Testing Right Flexion (L2) 4 Good Extension (S1) 4- Good- Abduction 4- Good- Adduction 4- Good- External Rotation 4- Good- Internal Rotation 4- Good- Left Flexion (L2) 4- Good- Extension (S1) 4- Good- Abduction 4- Good- Adduction 4- Good- External Rotation 4- Good- Internal Rotation 4- Good- Knee Strength Knee Manual Muscle Testing Right Flexion (S2) 4 Good Extension (L3) 4 Good Left Flexion (S2) 4- Good- Extension (L3) 4- Good- Comments no pain with resisted testing PT-OP-T Assessment and Plan Start: 10/18/24 07:25 Freq: Status: Active Protocol: Document 10/18/24 13:47 NM (Rec: 10/18/24 14:32 NM [id number]) Physical Therapy Assessment Rehab Potential Rehabilitation Potential Good Evaluation Complexity Number of Personal Factors/Comorbidities 3 or More Number of Body Systems Impaired 4 or More Clinical Presentation at Evaluation Stable Impairments Impairments Activity Tolerance,Balance, Functional Activities, Functional Mobility,Gait, Integument,Pain,Posture,ROM, Soft Tissue Mobility,Strength, Transfers,Vestibular Other Concerns Age Related Concerns PMH: arthritis, back pain, blood pressure, dizziness, hearing problems, surgeries: hernia correction Barriers to Rehabilitation Concurrently being treated daily with chemotherapy pills Goals Four Impairment unsteadiness and pain on stairs Halfway Goal (LTG) Pt will report <2/10 hip and knee pain while performing at least 8 stairs with or without 1 rail assist and maintain good control with descent to assist with household mobility LTG Duration 12/31/24 Three Impairment STS transfers challenged, unsteady w/o UE assist, 5x STS 17.55 sec Short Term Goal (STG) Pt will increase L hip and knee strength to at least 4+/5 MMT STG Duration 11/19/24 Halfway Goal (LTG) Pt will be able to perform 5x STS in 14.8 sec or less without unsteadiness or UE assist, if appropriate, in order to demonstrate improved transfers LTG Duration 12/31/24 Two Impairment Functional gait assessment , indicates increased fall risk; SLS limite Short Term Goal (STG) Pt will be able to perform SLS bilaterally for at least 5 seconds in order to demonstrate improved ability to weight shift and maintain stability during gait STG Duration 11/19/24 Hse Advisor Goal (LTG) Pt will increase FGA score >22 /30 in order to demonstrate decreased fall risk LTG Duration 12/31/24 One Impairment L knee ROM impaired, limits gait and stairs Hse Advisor Goal (LTG) Pt will increase L knee flexion AROM to at least 115 deg and L knee extension AROM to least lacking 4 deg or less in order to improve ability to perform stairs and gait LTG Duration 12/31/24 Assessment Summary Assessment Pt is an 79 y.o. presenting with L knee, L hip, and balance abnormalities. Pt has had successful PT for same condition previously; however, reports that symptoms returned following discharge from PT. Pt's L knee and hip pain consistent with dx. He has moderate limitations in L knee ROM and strength, in addition to crepitius, tenderness to palpation, and limited patellar and joint mobility. L hip has capsular restrictions and strength limitations; tender to palpation along anterior hip muscles. Pt has signficant soft tissue and postural restrictions that further impact pt's ROM and symptoms. Pt's pain symptoms reproduced with STS transfers, stairs, gait, and ROM. His functional gait assessment is 09/13, indicating increased risk of falls during gait. PT educated pt on exam findings and plan of care. Pt would benefit from skilled PT for progressive strengthening, mobility, and balance training to decrease pain, improve ROM, and decrease fall risk. Physical Therapy Plan Frequency and Duration Frequency of Treatment 2x/Week Duration of treatment (weeks) 10 Plan of Care Start Date 10/18/24 Plan of Care End Date 12/31/24 Therapeutic Interventions Therapeutic Interventions Balance Training,Canalithic Repositioning,Gait Training, Home Exercise Program,Joint Mobilizations,Manual Therapy, Neuromuscular Re-education, Orthotic/Prosthetic Management ,Patient/Caregiver Education, Self-Care/Home Management, Sensory Integration,Soft Tissue Mobilization,Taping, Therapeutic Activities, Therapeutic Exercises, Vestibular Rehabilitation Other Therapeutic Interventions No modalities Next Visit Focus/Plan Next Note Type Treatment Note Next Visit Plan Establish HEP. Knee mobility: joint mobilizations, HS stretching, quad activation. Trial hip stretching. Initiated hip strengthening. calf stretch and strengthening, core strengthening Balance: SLS training, gluteal activation. 2-4 weight shifting, step tapping, etc
--- NOTE | 2024-10-21 14:45 | PT.OTN ---
Current Diagnoses Other chronic pain (10/21/24) Pain in left hip (10/21/24) Pain in left knee (10/21/24) Stiffness of left hip, not elsewhere classified (10/21/24) Stiffness of left knee, not elsewhere classified (10/21/24) Difficulty in walking, not elsewhere classified (10/21/24) Unsteadiness on feet (10/21/24) Other abnormalities of gait and mobility (10/21/24) Weakness (10/21/24) Physical Therapy Treatment Note PT-OP-A Visit Information Start: 10/18/24 07:25 Freq: Status: Active Protocol: Document 10/21/24 13:47 NM (Rec: 10/21/24 14:45 NM [id number]) Out-Patient Physical Therapy Visit Information Visit Information Visit Type Treatment Note Visit Note KX after 19 visits Visit Start Time 13:48 Visit Stop Time 14:30 Visit Number 2 Evaluation Information Evaluation Date 10/18/24 Precautions Precautions hx of falls, lightheaded with positional changes PT-OP-B Current Condition Start: 10/18/24 07:25 Freq: Status: Active Protocol: Document 10/18/24 13:47 NM (Rec: 10/18/24 14:32 NM [id number]) Current Condition History of Current Condition Onset Date since March 2024 History of Current Condition Pt presents with balance difficulties, L knee pain, and L hip pain. L hip and knee pain originally began after pt fell down the stairs in March, landing on his L side. He states that his balance is improved following his last episode of PT. Reports still ambulating 1 mi with dog often , reports balance ok, not using and AD. Reports that he is having dizziness with standing, transitions from positional changes (sitting > standing). Lightheadedness but not dizziness for 10-15 seconds, worse with turning feels off balance. Reports difficulty with coming up to stand from a chair, feels like need to hold on to stand; not confident on stairs without rail. 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 Still having L knee and hip pain following fall down stairs prior to last PT episode of care. Most difficulty with stepping over or around objects. Treatment Goals Patient/Caregiver Goals gait speed, stepping over shower/curbs, improve balance, decrease pain PT-OP-C Subjective Start: 10/18/24 07:25 Freq: Status: Active Protocol: Document 10/21/24 13:47 NM (Rec: 10/21/24 14:45 NM [id number]) OP-PT Subjective Patient Comments Patient Comments Pt reports no changes since evaluation. He reports 3/4-10 L knee pain. He reports that his R knee is starting to buckle on him. PT-OP-D Balance Start: 10/18/24 07:25 Freq: Status: Active Protocol: Document 10/18/24 13:47 NM (Rec: 10/18/24 14:32 NM [id number]) Balance Tests mCTSIB mCTSIB Position 1 EO, stable: 30 sec mCTSIB Position 2 EC, stable: 30 sec mCTSIB Position 3 EO, unstable: 15 sec mCTSIB Position 4 EC, unstable: 5 sec Single Limb Standing Single Limb- Right 3 sec Single Limb- Left 1 sec Tandem Tandem Standing 10 sec PT-OP-E Functional Tests Start: 10/18/24 13:47 Freq: Status: Active Protocol: Document 10/18/24 13:47 NM (Rec: 10/18/24 14:32 NM [id number]) Functional Tests Five Times Sit to Stand Test Score 17.55 Comments standard chair; unsteady Functional Gait Assessment Score 09/13 PT-OP-F Manual Assessment Start: 10/18/24 07:25 Freq: Status: Active Protocol: Document 10/18/24 13:47 NM (Rec: 10/18/24 14:32 NM [id number]) Manual Assessments Soft Tissue Assessment Soft Tissue Mobility Assessment Increased restrictions of B hamstrings, hip flexors, and calves Joint Mobility Assessment Joint Mobility Assessment Decreased L knee PROM and AROM , empty end feel; more observable passive than active ROM Decreased L hip PROM and AROM with capsular pattern; rotation further limited by knee pain PT-OP-G Mobility & Gait Start: 10/18/24 07:25 Freq: Status: Active Protocol: Document 10/18/24 13:47 NM (Rec: 10/18/24 14:32 NM [id number]) OP Gait Assessment Gait Gait Assistance Required: Standby Assistance Distance (Feet) 150 Assistive Devices Assistive Device Gait Belt Gait Deviations General Gait Pattern Antalgic,Decreased Feet Clearance,Flexed Trunk Factors Limiting Gait Function Factors Limiting Gait Function Decreased Activity Tolerance, Decreased Strength,Limited Range of Motion,Pain,Poor Balance Comments Gait Comments does not use AD Stair Climbing Evaluation Evaluation Level of Assist On Stairs Contact Guard Assistance Technique/Endurance Stair Climbing Direction Ascend and Descend Stair Climbing Technique Step Over Step Number of Steps Climbed 4 Stair Climbing Set # Repetitions (reps) 1 Comments Stair Climbing Comments L lateral hip pain with ascent . Demos poor control with descent, leaning on rails vs use of rails for hand support or balance. Unsteadiness with turning on stairs PT-OP-J Posture/Palpation/Skin Start: 10/18/24 07:25 Freq: Status: Active Protocol: Document 10/18/24 13:47 NM (Rec: 10/18/24 14:32 NM [id number]) Posture Evaluation Position Standing Head/C-Spine Posture Forward Head T-Spine Posture Increased Kyphosis Shoulder Posture (L) Rounded,(R) Rounded Pelvis Posture Posterior Tilted Weight Distribution Weight Shifted Right Hip Posture (L) Externally Rotated,(R) Externally Rotated Knee Posture (L) Genu Varus,(R) Genu Varus Comments Posture Comments increased trunk flexion, maintains B knee flexion in stance and gait Palpation Assessment Location L hip Palpation Details Tenderness to palpation and tightness of TFL, glutes, and deep hip anteriorly L knee Palpation Details Tenderness along both medial and lateral joint lines and compartments. increased restrictions of hamstrings and muscle inserting into pes anserine; quad tightness Limited patellar mobility maintains knee flexion at all times PT-OP-K Range of Motion Start: 10/18/24 07:25 Freq: Status: Active Protocol: Document 10/18/24 13:47 NM (Rec: 10/18/24 14:32 NM [id number]) Hip Goniometric Range of Motion Hip Right Flexion w/Knee Flexed 108 Internal Rotation 28 External Rotation 28 Left Flexion w/Knee Flexed 95 Internal Rotation 28 External Rotation 25 Comments pain at medial knee, limited hip ROM with IR Knee Goniometric Range of Motion Knee Right Flexion Active (degrees) 118 Extension Active (degrees) 5 Left Flexion Active (degrees) 95 Extension Active (degrees) 8 Comments pain with flex, end range ext PT-OP-L Special Tests Start: 10/18/24 07:25 Freq: Status: Active Protocol: Document 10/18/24 13:47 NM (Rec: 10/18/24 15:40 NM [id number]) Special Tests Hip Special Tests [facility] Resisted Hip Flexion Test Results - FADIR Test Results + Comments limited at hip, mild pain BILLIE Test Results + Comments knee and hip posteriorly Knee Special Tests Swetha Test Results - Varus Test Results - Valgus Test Results - PT-OP-M Strength Start: 10/18/24 07:25 Freq: Status: Active Protocol: Document 10/18/24 13:47 NM (Rec: 10/18/24 14:32 NM [id number]) Hip Strength Hip Manual Muscle Testing Right Flexion (L2) 4 Good Extension (S1) 4- Good- Abduction 4- Good- Adduction 4- Good- External Rotation 4- Good- Internal Rotation 4- Good- Left Flexion (L2) 4- Good- Extension (S1) 4- Good- Abduction 4- Good- Adduction 4- Good- External Rotation 4- Good- Internal Rotation 4- Good- Knee Strength Knee Manual Muscle Testing Right Flexion (S2) 4 Good Extension (L3) 4 Good Left Flexion (S2) 4- Good- Extension (L3) 4- Good- Comments no pain with resisted testing PT-OP-Q Treatments Start: 10/18/24 07:25 Freq: Status: Active Protocol: Document 10/21/24 13:47 NM (Rec: 10/21/24 14:45 NM [id number]) Therapeutic Exercises Supine Exercises quad set Supine Exercise Name 1. supine, 2. long sitting Side bilateral Equipment Used towel roll behind knee Reps/Minutes 10x2 ea position, ea leg Comments cued for gentle squeeze; dec activation but improved with reps hamstring stretch Supine Exercise Name HEP Side bilateral Equipment Used c/ strap Reps/Minutes 60 ea Comments pain free as long as cued to relax knee; cued knee ext Standing Exercises hamstring stretch Side bilateral Equipment Used foot on 2nd step, B rail support balance Reps/Minutes 60 Comments cued straight knee hip flexor stretch Standing Exercise Name HEP Side bilateral Equipment Used c/ ppt (cued glute squeeze) Reps/Minutes 60 ea TKE Standing Exercise Name HEP Side bilateral Resistance level 2 band tied at stairs Equipment Used 1 hand support Reps/Minutes 10x2 (less motion on L side) Comments cued set up; able to safely self don/doff with hand support on rail Manual Therapy Treatment Consent Patient gave verbal consent for manual Yes treatment Soft Tissue Mobilization L knee Body Location hamstring, quad, calf Mobilization Type Rolling,Strumming,Sustained Pressure,Trigger Point Release Intensity/Depth Moderate Body Position Hooklying L hip Body Location TFL, hip flexors, ITB, glute Mobilization Type Rolling,Strumming,Trigger Point Release Intensity/Depth Moderate Body Position Hooklying Joint Mobilizations L knee Joint patellar Direction sup/inf/med/lat Grade II Body Position Supine Reps/Duration 10 ea Comments limited globally Manual Techniques contract-relax Type hip ext contraction > passive hip flexion/hamstring stretch Body Location LLE Body Position Supine Reps/Duration 2 min Comments supported on PT shoulder; monitored for pain Neuro Re-Education Treatment Balance Activities NBOS Surface stable Reps/Duration 60 ea for semi tandem, 2x30 ea SLS Comments 1. semi tandem w/ 1 finger support, close SBA 2. semi tandem w/o UE support, CGA Cueing for weight shift, posture, core and glute activation 3. SLS w/ 1 finger support, CGA 4. SLS w/o UE support, CGA - needs prn UE support on bar to maintain balance, immed unsteady within 2 sec Cueing for core/glute activation, rhomboid facilitiation PT-OP-T Assessment and Plan Start: 10/18/24 07:25 Freq: Status: Active Protocol: Document 10/21/24 13:47 NM (Rec: 10/21/24 14:45 NM [id number]) Physical Therapy Assessment Goals Four Impairment unsteadiness and pain on stairs Usp Goal (LTG) Pt will report <2/10 hip and knee pain while performing at least 8 stairs with or without 1 rail assist and maintain good control with descent to assist with household mobility LTG Duration 12/31/24 Three Impairment STS transfers challenged, unsteady w/o UE assist, 5x STS 17.55 sec Short Term Goal (STG) Pt will increase L hip and knee strength to at least 4+/5 MMT STG Duration 11/19/24 Nozzleman Goal (LTG) Pt will be able to perform 5x STS in 14.8 sec or less without unsteadiness or UE assist, if appropriate, in order to demonstrate improved transfers LTG Duration 12/31/24 Two Impairment Functional gait assessment , indicates increased fall risk; SLS limite Short Term Goal (STG) Pt will be able to perform SLS bilaterally for at least 5 seconds in order to demonstrate improved ability to weight shift and maintain stability during gait STG Duration 11/19/24 Usp Goal (LTG) Pt will increase FGA score >22 /30 in order to demonstrate decreased fall risk LTG Duration 12/31/24 One Impairment L knee ROM impaired, limits gait and stairs Usp Goal (LTG) Pt will increase L knee flexion AROM to at least 115 deg and L knee extension AROM to least lacking 4 deg or less in order to improve ability to perform stairs and gait LTG Duration 12/31/24 Assessment Summary Assessment Pt tolerated session well, no increase in knee pain during session. Initiated quad strengthening to promote knee extension ROM. Moderate cueing needed for correct execution for quad set. Hard to coordinate quad activation initially but able to progress to TKE with band. Pt can safely self don/doff with UE support; educated on use at home. L hamstrings very tight and restricted. Initiated stretching to improve length, pt reports less strain on knee post stretching. Pt L patella mobility restricted globally, minimal change post manual tx . Balance still most challenging for pt, especially narrow [place]. Needs CGA at least for steadiness; moderate cueing gluteal/core activation for posture. Pt would benefit from skilled PT for progressive strengthening and flexibility to improve ROM for gait and stairs. Physical Therapy Plan Frequency and Duration Frequency of Treatment 2x/Week Duration of treatment (weeks) 10 Plan of Care Start Date 10/18/24 Plan of Care End Date 12/31/24 Therapeutic Interventions Therapeutic Interventions Balance Training,Canalithic Repositioning,Gait Training, Home Exercise Program,Joint Mobilizations,Manual Therapy, Neuromuscular Re-education, Orthotic/Prosthetic Management ,Patient/Caregiver Education, Self-Care/Home Management, Sensory Integration,Soft Tissue Mobilization,Taping, Therapeutic Activities, Therapeutic Exercises, Vestibular Rehabilitation Other Therapeutic Interventions No modalities Next Visit Focus/Plan Next Note Type Treatment Note Next Visit Plan Assess HEP. promote knee ext and flex ROM. Can trial wall slide vs heel slide or seated slide. HS length and rolling pin for self STM. hip strengthening: hip abd, hip ext, STS, leg press, calf stretch Knee mobility: joint mobilizations, HS stretching, quad activation. Trial hip stretching. Initiated hip strengthening. calf stretch and strengthening, core strengthening Balance: SLS training, gluteal activation. 2-4 weight shifting, step tapping, etc
--- NOTE | 2024-10-25 14:30 | PT.OTN ---
Current Diagnoses Other chronic pain (10/25/24) Pain in left hip (10/25/24) Pain in left knee (10/25/24) Stiffness of left hip, not elsewhere classified (10/25/24) Stiffness of left knee, not elsewhere classified (10/25/24) Difficulty in walking, not elsewhere classified (10/25/24) Unsteadiness on feet (10/25/24) Other abnormalities of gait and mobility (10/25/24) Weakness (10/25/24) Physical Therapy Treatment Note PT-OP-A Visit Information Start: 10/18/24 07:25 Freq: Status: Active Protocol: Document 10/25/24 13:50 SP (Rec: 10/25/24 14:33 SP [id number]) Out-Patient Physical Therapy Visit Information Visit Information Visit Type Treatment Note Visit Note KX after 19 visits Visit Start Time 13:50 Visit Stop Time 14:30 Visit Number 3 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 L hip and knee pain originally began after pt fell down the stairs in March, landing on his L side. He states that his balance is improved following his last episode of PT. Reports still ambulating 1 mi with dog often , reports balance ok, not using and AD. Reports that he is having dizziness with standing, transitions from positional changes (sitting > standing). Lightheadedness but not dizziness for 10-15 seconds, worse with turning feels off balance. Reports difficulty with coming up to stand from a chair, feels like need to hold on to stand; not confident on stairs without rail. 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 Still having L knee and hip pain following fall down stairs prior to last PT episode of care. Most difficulty with stepping over or around objects. Treatment Goals Patient/Caregiver Goals gait speed, stepping over shower/curbs, improve balance, decrease pain PT-OP-C Subjective Start: 10/18/24 07:25 Freq: Status: Active Protocol: Document 10/25/24 13:50 SP (Rec: 10/25/24 14:33 SP [id number]) OP-PT Subjective Patient Comments Patient Comments Pt reports doing well with HEP . PT-OP-D Balance Start: 10/18/24 07:25 Freq: Status: Active Protocol: Document 10/18/24 13:47 NM (Rec: 10/18/24 14:32 NM [id number]) Balance Tests mCTSIB mCTSIB Position 1 EO, stable: 30 sec mCTSIB Position 2 EC, stable: 30 sec mCTSIB Position 3 EO, unstable: 15 sec mCTSIB Position 4 EC, unstable: 5 sec Single Limb Standing Single Limb- Right 3 sec Single Limb- Left 1 sec Tandem Tandem Standing 10 sec PT-OP-E Functional Tests Start: 10/18/24 13:47 Freq: Status: Active Protocol: Document 10/18/24 13:47 NM (Rec: 10/18/24 14:32 NM [id number]) Functional Tests Five Times Sit to Stand Test Score 17.55 Comments standard chair; unsteady Functional Gait Assessment Score 09/13 PT-OP-F Manual Assessment Start: 10/18/24 07:25 Freq: Status: Active Protocol: Document 10/18/24 13:47 NM (Rec: 10/18/24 14:32 NM [id number]) Manual Assessments Soft Tissue Assessment Soft Tissue Mobility Assessment Increased restrictions of B hamstrings, hip flexors, and calves Joint Mobility Assessment Joint Mobility Assessment Decreased L knee PROM and AROM , empty end feel; more observable passive than active ROM Decreased L hip PROM and AROM with capsular pattern; rotation further limited by knee pain PT-OP-G Mobility & Gait Start: 10/18/24 07:25 Freq: Status: Active Protocol: Document 10/18/24 13:47 NM (Rec: 10/18/24 14:32 NM [id number]) OP Gait Assessment Gait Gait Assistance Required: Standby Assistance Distance (Feet) 150 Assistive Devices Assistive Device Gait Belt Gait Deviations General Gait Pattern Antalgic,Decreased Feet Clearance,Flexed Trunk Factors Limiting Gait Function Factors Limiting Gait Function Decreased Activity Tolerance, Decreased Strength,Limited Range of Motion,Pain,Poor Balance Comments Gait Comments does not use AD Stair Climbing Evaluation Evaluation Level of Assist On Stairs Contact Guard Assistance Technique/Endurance Stair Climbing Direction Ascend and Descend Stair Climbing Technique Step Over Step Number of Steps Climbed 4 Stair Climbing Set # Repetitions (reps) 1 Comments Stair Climbing Comments L lateral hip pain with ascent . Demos poor control with descent, leaning on rails vs use of rails for hand support or balance. Unsteadiness with turning on stairs PT-OP-J Posture/Palpation/Skin Start: 10/18/24 07:25 Freq: Status: Active Protocol: Document 10/18/24 13:47 NM (Rec: 10/18/24 14:32 NM [id number]) Posture Evaluation Position Standing Head/C-Spine Posture Forward Head T-Spine Posture Increased Kyphosis Shoulder Posture (L) Rounded,(R) Rounded Pelvis Posture Posterior Tilted Weight Distribution Weight Shifted Right Hip Posture (L) Externally Rotated,(R) Externally Rotated Knee Posture (L) Genu Varus,(R) Genu Varus Comments Posture Comments increased trunk flexion, maintains B knee flexion in stance and gait Palpation Assessment Location L hip Palpation Details Tenderness to palpation and tightness of TFL, glutes, and deep hip anteriorly L knee Palpation Details Tenderness along both medial and lateral joint lines and compartments. increased restrictions of hamstrings and muscle inserting into pes anserine; quad tightness Limited patellar mobility maintains knee flexion at all times PT-OP-K Range of Motion Start: 10/18/24 07:25 Freq: Status: Active Protocol: Document 10/18/24 13:47 NM (Rec: 10/18/24 14:32 NM [id number]) Hip Goniometric Range of Motion Hip Right Flexion w/Knee Flexed 108 Internal Rotation 28 External Rotation 28 Left Flexion w/Knee Flexed 95 Internal Rotation 28 External Rotation 25 Comments pain at medial knee, limited hip ROM with IR Knee Goniometric Range of Motion Knee Right Flexion Active (degrees) 118 Extension Active (degrees) 5 Left Flexion Active (degrees) 95 Extension Active (degrees) 8 Comments pain with flex, end range ext PT-OP-L Special Tests Start: 10/18/24 07:25 Freq: Status: Active Protocol: Document 10/18/24 13:47 NM (Rec: 10/18/24 15:40 NM [id number]) Special Tests Hip Special Tests Stinchfield Resisted Hip Flexion Test Results - FADIR Test Results + Comments limited at hip, mild pain BILLIE Test Results + Comments knee and hip posteriorly Knee Special Tests Swetha Test Results - Varus Test Results - Valgus Test Results - PT-OP-M Strength Start: 10/18/24 07:25 Freq: Status: Active Protocol: Document 10/18/24 13:47 NM (Rec: 10/18/24 14:32 NM [id number]) Hip Strength Hip Manual Muscle Testing Right Flexion (L2) 4 Good Extension (S1) 4- Good- Abduction 4- Good- Adduction 4- Good- External Rotation 4- Good- Internal Rotation 4- Good- Left Flexion (L2) 4- Good- Extension (S1) 4- Good- Abduction 4- Good- Adduction 4- Good- External Rotation 4- Good- Internal Rotation 4- Good- Knee Strength Knee Manual Muscle Testing Right Flexion (S2) 4 Good Extension (L3) 4 Good Left Flexion (S2) 4- Good- Extension (L3) 4- Good- Comments no pain with resisted testing PT-OP-Q Treatments Start: 10/18/24 07:25 Freq: Status: Active Protocol: Document 10/25/24 13:50 SP (Rec: 10/25/24 14:33 SP [id number]) Therapeutic Exercises Supine Exercises ITB stretch Supine Exercise Name initiated R lateral knee flexibility Side bilateral Resistance R>L tightness Equipment Used use strap on foot Reps/Minutes 30 SH-give HO next tx. Comments cued cross leg opp side evens range- good stretch quad set Supine Exercise Name 1. supine, 2. long sitting Side bilateral Equipment Used towel roll behind knee Reps/Minutes 10x10 ea position, ea leg Comments cued for gentle squeeze; dec activation but improved with reps hamstring stretch Supine Exercise Name HEP Side bilateral Equipment Used c/ strap Reps/Minutes 60 ea Comments pain free as long as cued to maintain TKE but knee relaxed ext Sitting Exercises self STMs Sitting Exercise Name initiated rolling pin: quad, HS, calf, ITB Side right Equipment Used has wine bottle can use Comments good response dec mus tension benefits Standing Exercises toe raises Standing Exercise Name added to HEP for DF strength walking/TKE Side bilateral Resistance AROM Equipment Used back to wall Reps/Minutes 10 x2 Comments cued TKE and toe lift, good effort no pain wall slide Standing Exercise Name trailed b Equipment Used back to wall, feet front ball between knees Comments cued glut drive, still causing Lat R knee discomfort - hold hip flexor stretch Standing Exercise Name HEP reviewed: hip flexor, calf , pec Side bilateral Equipment Used c/ ppt (cued glute squeeze) Reps/Minutes 60 ea Comments good form and stretch resposne . TKE Standing Exercise Name reviewed HEP Side bilateral Resistance level 2 band tied at cable machines Equipment Used no hand support, Rt foot little back Reps/Minutes 10x5 (less motion on L side) Comments cued set up; able to safely self don/doff with hand support on rail PT-OP-T Assessment and Plan Start: 10/18/24 07:25 Freq: Status: Active Protocol: Document 10/25/24 13:50 SP (Rec: 10/25/24 14:33 SP [id number]) Physical Therapy Assessment Goals Four Impairment unsteadiness and pain on stairs Clothespin Machine Operator Goal (LTG) Pt will report <2/10 hip and knee pain while performing at least 8 stairs with or without 1 rail assist and maintain good control with descent to assist with household mobility LTG Duration 12/31/24 Three Impairment STS transfers challenged, unsteady w/o UE assist, 5x STS 17.55 sec Short Term Goal (STG) Pt will increase L hip and knee strength to at least 4+/5 MMT STG Duration 11/19/24 Clothespin Machine Operator Goal (LTG) Pt will be able to perform 5x STS in 14.8 sec or less without unsteadiness or UE assist, if appropriate, in order to demonstrate improved transfers LTG Duration 12/31/24 Two Impairment Functional gait assessment , indicates increased fall risk; SLS limite Short Term Goal (STG) Pt will be able to perform SLS bilaterally for at least 5 seconds in order to demonstrate improved ability to weight shift and maintain stability during gait STG Duration 11/19/24 Clothespin Machine Operator Goal (LTG) Pt will increase FGA score >22 /30 in order to demonstrate decreased fall risk LTG Duration 12/31/24 One Impairment L knee ROM impaired, limits gait and stairs Clothespin Machine Operator Goal (LTG) Pt will increase L knee flexion AROM to at least 115 deg and L knee extension AROM to least lacking 4 deg or less in order to improve ability to perform stairs and gait LTG Duration 12/31/24 Assessment Summary Assessment Pt good response to stretching , added ITB but put on HO. Trialed wall slides but caused R lateral knee pain, added kickball adduction so stopped. Initiated DF/toe raises for ankle and support TKE strengthening and active posterior chain stretching with improved feedback results . Trialed self STMs usign rolling pin, pt only has wine bottle but reports feels can be beneficial home (forgot give on HO end as reminder). Physical Therapy Plan Frequency and Duration Frequency of Treatment 2x/Week Duration of treatment (weeks) 10 Plan of Care Start Date 10/18/24 Plan of Care End Date 12/31/24 Therapeutic Interventions Therapeutic Interventions Balance Training,Canalithic Repositioning,Gait Training, Home Exercise Program,Joint Mobilizations,Manual Therapy, Neuromuscular Re-education, Orthotic/Prosthetic Management ,Patient/Caregiver Education, Self-Care/Home Management, Sensory Integration,Soft Tissue Mobilization,Taping, Therapeutic Activities, Therapeutic Exercises, Vestibular Rehabilitation Other Therapeutic Interventions No modalities Next Visit Focus/Plan Next Note Type Treatment Note Next Visit Plan Assess HEP. Recheck DF toe raises, recheck wall slides, possibly trial HS curls promote stance LE knee ext and moving knee flex ROM. Can recheck trial wall slide vs heel slide or seated slide. HS length and rolling pin for self STM. hip strengthening: hip abd, hip ext, STS, leg press, calf stretch Knee mobility: joint mobilizations, HS stretching, quad activation. Trial hip stretching. Initiated hip strengthening. calf stretch and strengthening, core strengthening Balance: SLS training, gluteal activation. 2-4 weight shifting, step tapping, etc
--- NOTE | 2024-10-28 15:41 | PT.OTN ---
Current Diagnoses Other chronic pain (10/28/24) Pain in left hip (10/28/24) Pain in left knee (10/28/24) Stiffness of left hip, not elsewhere classified (10/28/24) Stiffness of left knee, not elsewhere classified (10/28/24) Difficulty in walking, not elsewhere classified (10/28/24) Unsteadiness on feet (10/28/24) Other abnormalities of gait and mobility (10/28/24) Weakness (10/28/24) Physical Therapy Treatment Note PT-OP-A Visit Information Start: 10/18/24 07:25 Freq: Status: Active Protocol: Document 10/28/24 13:52 NM (Rec: 10/28/24 15:41 NM [id number]) Out-Patient Physical Therapy Visit Information Visit Information Visit Type Treatment Note Visit Note KX after 19 visits Visit Start Time 13:52 Visit Stop Time 14:30 Visit Number 4 PT-OP-B Current Condition Start: 10/18/24 07:25 Freq: Status: Active Protocol: Document 10/18/24 13:47 NM (Rec: 10/18/24 14:32 NM [id number]) Current Condition History of Current Condition Onset Date since March 2024 History of Current Condition Pt presents with balance difficulties, L knee pain, and L hip pain. L hip and knee pain originally began after pt fell down the stairs in March, landing on his L side. He states that his balance is improved following his last episode of PT. Reports still ambulating 1 mi with dog often , reports balance ok, not using and AD. Reports that he is having dizziness with standing, transitions from positional changes (sitting > standing). Lightheadedness but not dizziness for 10-15 seconds, worse with turning feels off balance. Reports difficulty with coming up to stand from a chair, feels like need to hold on to stand; not confident on stairs without rail. 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 Still having L knee and hip pain following fall down stairs prior to last PT episode of care. Most difficulty with stepping over or around objects. Treatment Goals Patient/Caregiver Goals gait speed, stepping over shower/curbs, improve balance, decrease pain PT-OP-C Subjective Start: 10/18/24 07:25 Freq: Status: Active Protocol: Document 10/28/24 13:52 NM (Rec: 10/28/24 15:41 NM [id number]) OP-PT Subjective Patient Comments Patient Comments Pt reports 0/10 pain in his L hip and knee for the past 4 days, since before last [facility] visit. Pt will be gone for middle of november on vacation. Debo ALLISON at [facility] PT-OP-D Balance Start: 10/18/24 07:25 Freq: Status: Active Protocol: Document 10/18/24 13:47 NM (Rec: 10/18/24 14:32 NM [id number]) Balance Tests mCTSIB mCTSIB Position 1 EO, stable: 30 sec mCTSIB Position 2 EC, stable: 30 sec mCTSIB Position 3 EO, unstable: 15 sec mCTSIB Position 4 EC, unstable: 5 sec Single Limb Standing Single Limb- Right 3 sec Single Limb- Left 1 sec Tandem Tandem Standing 10 sec PT-OP-E Functional Tests Start: 10/18/24 13:47 Freq: Status: Active Protocol: Document 10/18/24 13:47 NM (Rec: 10/18/24 14:32 NM [id number]) Functional Tests Five Times Sit to Stand Test Score 17.55 Comments standard chair; unsteady Functional Gait Assessment Score 1230 PT-OP-F Manual Assessment Start: 10/18/24 07:25 Freq: Status: Active Protocol: Document 10/18/24 13:47 NM (Rec: 10/18/24 14:32 NM [id number]) Manual Assessments Soft Tissue Assessment Soft Tissue Mobility Assessment Increased restrictions of B hamstrings, hip flexors, and calves Joint Mobility Assessment Joint Mobility Assessment Decreased L knee PROM and AROM , empty end feel; more observable passive than active ROM Decreased L hip PROM and AROM with capsular pattern; rotation further limited by knee pain PT-OP-G Mobility & Gait Start: 10/18/24 07:25 Freq: Status: Active Protocol: Document 10/18/24 13:47 NM (Rec: 10/18/24 14:32 NM [id number]) OP Gait Assessment Gait Gait Assistance Required: Standby Assistance Distance (Feet) 150 Assistive Devices Assistive Device Gait Belt Gait Deviations General Gait Pattern Antalgic,Decreased Feet Clearance,Flexed Trunk Factors Limiting Gait Function Factors Limiting Gait Function Decreased Activity Tolerance, Decreased Strength,Limited Range of Motion,Pain,Poor Balance Comments Gait Comments does not use AD Stair Climbing Evaluation Evaluation Level of Assist On Stairs Contact Guard Assistance Technique/Endurance Stair Climbing Direction Ascend and Descend Stair Climbing Technique Step Over Step Number of Steps Climbed 4 Stair Climbing Set # Repetitions (reps) 1 Comments Stair Climbing Comments L lateral hip pain with ascent . Demos poor control with descent, leaning on rails vs use of rails for hand support or balance. Unsteadiness with turning on stairs PT-OP-J Posture/Palpation/Skin Start: 10/18/24 07:25 Freq: Status: Active Protocol: Document 10/18/24 13:47 NM (Rec: 10/18/24 14:32 NM [id number]) Posture Evaluation Position Standing Head/C-Spine Posture Forward Head T-Spine Posture Increased Kyphosis Shoulder Posture (L) Rounded,(R) Rounded Pelvis Posture Posterior Tilted Weight Distribution Weight Shifted Right Hip Posture (L) Externally Rotated,(R) Externally Rotated Knee Posture (L) Genu Varus,(R) Genu Varus Comments Posture Comments increased trunk flexion, maintains B knee flexion in stance and gait Palpation Assessment Location L hip Palpation Details Tenderness to palpation and tightness of TFL, glutes, and deep hip anteriorly L knee Palpation Details Tenderness along both medial and lateral joint lines and compartments. increased restrictions of hamstrings and muscle inserting into pes anserine; quad tightness Limited patellar mobility maintains knee flexion at all times PT-OP-K Range of Motion Start: 10/18/24 07:25 Freq: Status: Active Protocol: Document 10/18/24 13:47 NM (Rec: 10/18/24 14:32 NM [id number]) Hip Goniometric Range of Motion Hip Right Flexion w/Knee Flexed 108 Internal Rotation 28 External Rotation 28 Left Flexion w/Knee Flexed 95 Internal Rotation 28 External Rotation 25 Comments pain at medial knee, limited hip ROM with IR Knee Goniometric Range of Motion Knee Right Flexion Active (degrees) 118 Extension Active (degrees) 5 Left Flexion Active (degrees) 95 Extension Active (degrees) 8 Comments pain with flex, end range ext PT-OP-L Special Tests Start: 10/18/24 07:25 Freq: Status: Active Protocol: Document 10/18/24 13:47 NM (Rec: 10/18/24 15:40 NM [id number]) Special Tests Hip Special Tests [facility] Resisted Hip Flexion Test Results - FADIR Test Results + Comments limited at hip, mild pain BILLIE Test Results + Comments knee and hip posteriorly Knee Special Tests Swetha Test Results - Varus Test Results - Valgus Test Results - PT-OP-M Strength Start: 10/18/24 07:25 Freq: Status: Active Protocol: Document 10/18/24 13:47 NM (Rec: 10/18/24 14:32 NM [id number]) Hip Strength Hip Manual Muscle Testing Right Flexion (L2) 4 Good Extension (S1) 4- Good- Abduction 4- Good- Adduction 4- Good- External Rotation 4- Good- Internal Rotation 4- Good- Left Flexion (L2) 4- Good- Extension (S1) 4- Good- Abduction 4- Good- Adduction 4- Good- External Rotation 4- Good- Internal Rotation 4- Good- Knee Strength Knee Manual Muscle Testing Right Flexion (S2) 4 Good Extension (L3) 4 Good Left Flexion (S2) 4- Good- Extension (L3) 4- Good- Comments no pain with resisted testing PT-OP-Q Treatments Start: 10/18/24 07:25 Freq: Status: Active Protocol: Document 10/28/24 13:52 NM (Rec: 10/28/24 15:41 NM [id number]) Therapeutic Exercises Supine Exercises elza stretch Supine Exercise Name trialed in PT Side bilateral Equipment Used c/ quad stretch using strap Reps/Minutes 60 ea Comments cueing for set up Sidelying Exercises quad stretch Sidelying Exercise Name trialed in PT -HEP Side left Equipment Used strap around foot Reps/Minutes 60 Comments cueing for slight hip ext Sitting Exercises sit to stand Side bilateral Equipment Used standard mesh chair Reps/Minutes 10 Comments no UE assist; close SBA, no pain; cued quad set for TKE Standing Exercises ankle dorsiflexion Side bilateral Equipment Used back on wall, close SBA Reps/Minutes 20x3 hold at end range Comments maintains control c/ eccentric lowering hip extension Side bilateral Resistance AROM > level 1 band at thighs Equipment Used 1 hand support on bar Reps/Minutes [address] foot down ea time; tall posture, core hip flexion Standing Exercise Name in PT session only Side bilateral Resistance level 1 band at toes Equipment Used 1 hand support Reps/Minutes 10 ea Comments pt able self don/doff seated, stand up c/ hand support on bar, SBA hip abduction Side bilateral Resistance AROM > level 1 band at thighs Equipment Used 1 hand support on bar Reps/Minutes 12 ea Comments cued slight hip ext, neutral foot; tall posture, core Manual Therapy Treatment Consent Patient gave verbal consent for manual Yes treatment Soft Tissue Mobilization L knee Body Location hamstring, quad, calf Mobilization Type Rolling,Strumming,Sustained Pressure,Trigger Point Release Intensity/Depth Moderate Body Position Hooklying Joint Mobilizations L knee Joint patellar, tibiofemoral Direction sup/inf/med/lat, PA/AP c/ inf glide and distraction Grade II Body Position Supine Reps/Duration 10 ea Comments limited globally patellar mobility. Improved L knee flexion from 110 deg to 118 deg post manual tx PT-OP-T Assessment and Plan Start: 10/18/24 07:25 Freq: Status: Active Protocol: Document 10/28/24 13:52 NM (Rec: 10/28/24 15:41 NM [id number]) Physical Therapy Assessment Goals Four Impairment unsteadiness and pain on stairs Homicide Investigator Goal (LTG) Pt will report <2/10 hip and knee pain while performing at least 8 stairs with or without 1 rail assist and maintain good control with descent to assist with household mobility LTG Duration 12/31/24 Three Impairment STS transfers challenged, unsteady w/o UE assist, 5x STS 17.55 sec Short Term Goal (STG) Pt will increase L hip and knee strength to at least 4+/5 MMT STG Duration 11/19/24 Long-Term Goal (LTG) Pt will be able to perform 5x STS in 14.8 sec or less without unsteadiness or UE assist, if appropriate, in order to demonstrate improved transfers LTG Duration 12/31/24 Two Impairment Functional gait assessment , indicates increased fall risk; SLS limite Short Term Goal (STG) Pt will be able to perform SLS bilaterally for at least 5 seconds in order to demonstrate improved ability to weight shift and maintain stability during gait STG Duration 11/19/24 Long-Term Goal (LTG) Pt will increase FGA score >22 /30 in order to demonstrate decreased fall risk LTG Duration 12/31/24 One Impairment L knee ROM impaired, limits gait and stairs Long-Term Goal (LTG) Pt will increase L knee flexion AROM to at least 115 deg and L knee extension AROM to least lacking 4 deg or less in order to improve ability to perform stairs and gait LTG Duration 12/31/24 Assessment Summary Assessment Pt tolerated session well, no knee or hip pain. Able to progress to STS from standard chair, no knee pain. Progressed to standing hip exercises, cueing needed for postural control with band. Needs UE assist to maintain balance. Trialed quad stretch to assist with L knee flexion. Pt demos improvements in L knee flexion from 110 to 118 deg with manual therapy. Pt would continue to benefit from skilled PT for progressive strengthening and balance training in order to improve symptom management and to decrease fall risk. Physical Therapy Plan Frequency and Duration Frequency of Treatment 2x/Week Duration of treatment (weeks) 10 Plan of Care Start Date 10/18/24 Plan of Care End Date 12/31/24 Therapeutic Interventions Therapeutic Interventions Balance Training,Canalithic Repositioning,Gait Training, Home Exercise Program,Joint Mobilizations,Manual Therapy, Neuromuscular Re-education, Orthotic/Prosthetic Management ,Patient/Caregiver Education, Self-Care/Home Management, Sensory Integration,Soft Tissue Mobilization,Taping, Therapeutic Activities, Therapeutic Exercises, Vestibular Rehabilitation Other Therapeutic Interventions No modalities Next Visit Focus/Plan Next Note Type Treatment Note Next Visit Plan Assess HEP. Recheck DF toe raises, STS vs leg press, possibly trial HS curls promote stance LE knee ext and moving knee flex ROM. Can recheck trial wall slide vs heel slide or seated slide. HS length and rolling pin for self STM. hip strengthening: hip abd, hip ext, STS, leg press, calf stretch Knee mobility: joint mobilizations, HS stretching, quad activation. Trial hip stretching. Initiated hip strengthening. calf stretch and strengthening, core strengthening Balance: SLS training, gluteal activation. 2-4 weight shifting, step tapping, etc
--- NOTE | 2024-11-02 15:22 | PT.OTN ---
Current Diagnoses Other chronic pain (11/02/24) Pain in left hip (11/02/24) Pain in left knee (11/02/24) Stiffness of left hip, not elsewhere classified (11/02/24) Stiffness of left knee, not elsewhere classified (11/02/24) Difficulty in walking, not elsewhere classified (11/02/24) Unsteadiness on feet (11/02/24) Other abnormalities of gait and mobility (11/02/24) Weakness (11/02/24) Physical Therapy Treatment Note PT-OP-A Visit Information Start: 10/18/24 07:25 Freq: Status: Active Protocol: Document 11/02/24 14:33 NM (Rec: 11/02/24 15:22 NM [id number]) Out-Patient Physical Therapy Visit Information Visit Information Visit Type Treatment Note Visit Note KX after 19 visits Visit Start Time 14:35 Visit Stop Time 15:13 Visit Number 5 Evaluation Information Evaluation Date 10/18/24 Precautions Precautions hx of falls, lightheaded with positional changes PT-OP-B Current Condition Start: 10/18/24 07:25 Freq: Status: Active Protocol: Document 10/18/24 13:47 NM (Rec: 10/18/24 14:32 NM [id number]) Current Condition History of Current Condition Onset Date since March 2024 History of Current Condition Pt presents with balance difficulties, L knee pain, and L hip pain. L hip and knee pain originally began after pt fell down the stairs in March, landing on his L side. He states that his balance is improved following his last episode of PT. Reports still ambulating 1 mi with dog often , reports balance ok, not using and AD. Reports that he is having dizziness with standing, transitions from positional changes (sitting > standing). Lightheadedness but not dizziness for 10-15 seconds, worse with turning feels off balance. Reports difficulty with coming up to stand from a chair, feels like need to hold on to stand; not confident on stairs without rail. 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 Still having L knee and hip pain following fall down stairs prior to last PT episode of care. Most difficulty with stepping over or around objects. Treatment Goals Patient/Caregiver Goals gait speed, stepping over shower/curbs, improve balance, decrease pain PT-OP-C Subjective Start: 10/18/24 07:25 Freq: Status: Active Protocol: Document 11/02/24 14:33 NM (Rec: 11/02/24 15:22 NM [id number]) OP-PT Subjective Patient Comments Patient Comments Pt reports still has 0/10 L hip and knee pain at all since last session. No changes from last session. Balance continues to improve since pain has improved. He reports compliance with HEP. He reports that 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 hop picker objects vs bending over. PT-OP-D Balance Start: 10/18/24 07:25 Freq: Status: Active Protocol: Document 10/18/24 13:47 NM (Rec: 10/18/24 14:32 NM [id number]) Balance Tests mCTSIB mCTSIB Position 1 EO, stable: 30 sec mCTSIB Position 2 EC, stable: 30 sec mCTSIB Position 3 EO, unstable: 15 sec mCTSIB Position 4 EC, unstable: 5 sec Single Limb Standing Single Limb- Right 3 sec Single Limb- Left 1 sec Tandem Tandem Standing 10 sec PT-OP-E Functional Tests Start: 10/18/24 13:47 Freq: Status: Active Protocol: Document 10/18/24 13:47 NM (Rec: 10/18/24 14:32 NM [id number]) Functional Tests Five Times Sit to Stand Test Score 17.55 Comments standard chair; unsteady Functional Gait Assessment Score 12/30 PT-OP-F Manual Assessment Start: 10/18/24 07:25 Freq: Status: Active Protocol: Document 10/18/24 13:47 NM (Rec: 10/18/24 14:32 NM [id number]) Manual Assessments Soft Tissue Assessment Soft Tissue Mobility Assessment Increased restrictions of B hamstrings, hip flexors, and calves Joint Mobility Assessment Joint Mobility Assessment Decreased L knee PROM and AROM , empty end feel; more observable passive than active ROM Decreased L hip PROM and AROM with capsular pattern; rotation further limited by knee pain PT-OP-G Mobility & Gait Start: 10/18/24 07:25 Freq: Status: Active Protocol: Document 10/18/24 13:47 NM (Rec: 10/18/24 14:32 NM [id number]) OP Gait Assessment Gait Gait Assistance Required: Standby Assistance Distance (Feet) 150 Assistive Devices Assistive Device Gait Belt Gait Deviations General Gait Pattern Antalgic,Decreased Feet Clearance,Flexed Trunk Factors Limiting Gait Function Factors Limiting Gait Function Decreased Activity Tolerance, Decreased Strength,Limited Range of Motion,Pain,Poor Balance Comments Gait Comments does not use AD Stair Climbing Evaluation Evaluation Level of Assist On Stairs Contact Guard Assistance Technique/Endurance Stair Climbing Direction Ascend and Descend Stair Climbing Technique Step Over Step Number of Steps Climbed 4 Stair Climbing Set # Repetitions (reps) 1 Comments Stair Climbing Comments L lateral hip pain with ascent . Demos poor control with descent, leaning on rails vs use of rails for hand support or balance. Unsteadiness with turning on stairs PT-OP-J Posture/Palpation/Skin Start: 10/18/24 07:25 Freq: Status: Active Protocol: Document 10/18/24 13:47 NM (Rec: 10/18/24 14:32 NM [id number]) Posture Evaluation Position Standing Head/C-Spine Posture Forward Head T-Spine Posture Increased Kyphosis Shoulder Posture (L) Rounded,(R) Rounded Pelvis Posture Posterior Tilted Weight Distribution Weight Shifted Right Hip Posture (L) Externally Rotated,(R) Externally Rotated Knee Posture (L) Genu Varus,(R) Genu Varus Comments Posture Comments increased trunk flexion, maintains B knee flexion in stance and gait Palpation Assessment Location L hip Palpation Details Tenderness to palpation and tightness of TFL, glutes, and deep hip anteriorly L knee Palpation Details Tenderness along both medial and lateral joint lines and compartments. increased restrictions of hamstrings and muscle inserting into pes anserine; quad tightness Limited patellar mobility maintains knee flexion at all times PT-OP-K Range of Motion Start: 10/18/24 07:25 Freq: Status: Active Protocol: Document 10/18/24 13:47 NM (Rec: 10/18/24 14:32 NM [id number]) Hip Goniometric Range of Motion Hip Right Flexion w/Knee Flexed 108 Internal Rotation 28 External Rotation 28 Left Flexion w/Knee Flexed 95 Internal Rotation 28 External Rotation 25 Comments pain at medial knee, limited hip ROM with IR Knee Goniometric Range of Motion Knee Right Flexion Active (degrees) 118 Extension Active (degrees) 5 Left Flexion Active (degrees) 95 Extension Active (degrees) 8 Comments pain with flex, end range ext PT-OP-L Special Tests Start: 10/18/24 07:25 Freq: Status: Active Protocol: Document 10/18/24 13:47 NM (Rec: 10/18/24 15:40 NM [id number]) Special Tests Hip Special Tests [facility] Resisted Hip Flexion Test Results - FADIR Test Results + Comments limited at hip, mild pain BILLIE Test Results + Comments knee and hip posteriorly Knee Special Tests Swetha Test Results - Varus Test Results - Valgus Test Results - PT-OP-M Strength Start: 10/18/24 07:25 Freq: Status: Active Protocol: Document 10/18/24 13:47 NM (Rec: 10/18/24 14:32 NM [id number]) Hip Strength Hip Manual Muscle Testing Right Flexion (L2) 4 Good Extension (S1) 4- Good- Abduction 4- Good- Adduction 4- Good- External Rotation 4- Good- Internal Rotation 4- Good- Left Flexion (L2) 4- Good- Extension (S1) 4- Good- Abduction 4- Good- Adduction 4- Good- External Rotation 4- Good- Internal Rotation 4- Good- Knee Strength Knee Manual Muscle Testing Right Flexion (S2) 4 Good Extension (L3) 4 Good Left Flexion (S2) 4- Good- Extension (L3) 4- Good- Comments no pain with resisted testing PT-OP-Q Treatments Start: 10/18/24 07:25 Freq: Status: Active Protocol: Document 11/02/24 14:33 NM (Rec: 11/02/24 15:22 NM [id number]) Therapeutic Exercises Standing Exercises hip extension Side bilateral Resistance level 1 band at thighs Equipment Used 1 hand support on bar prn Reps/Minutes 15 ea Comments cued control, taller posture hip flexion Standing Exercise Name hip flexion, not marching Side bilateral Resistance level 1 band at thighs Equipment Used prn 1 hand support on bar Reps/Minutes 15 ea Comments cued for form, no hip rotation , tall posture hip abduction Side bilateral Resistance level 1 band at thighs Equipment Used 1 hand support on bar prn Reps/Minutes 15 ea Comments cues neutral foot position, less UE support Neuro Re-Education Treatment Balance Activities SLS Details close SBA Surface stable Equipment 1 finger support Reps/Duration 5x10 Comments still challenging for pt; cued for glute activation and core facilitation, TKE hurdles Details SBA, prn CGA Surface stable Reps/Duration 6 hurdles x 2 sets ea Comments 1. fwd stepping, reciprocal clips 2 hurdles on ea set, but maintains taller posture, less post lean c/ cueing 2. lateral stepping cueing for neutral hip position, anita LLE eyes closed Surface stable Reps/Duration 60 ea Comments 1. normal SALVADOR 2. NBOS 3. normal SALVADOR horizontal head turns 4. normal SALVADOR vertical turns- post turnk lean retro stepping Details no Ue support, hovers //bars Surface CGA Reps/Duration 2x10 ft Comments cued tall posture, wider SALVADOR, increased step length shuttle balance Details red level- CGA Surface unstable Reps/Duration 4 min Comments 1. a/p demos strong post lean, cued push through toes 2. m/l demos strong R lean, cued less trunk lean R NBOS Details hovers UE //bars, CGA Comments 1. tandem stance, 60 ea 2. tandem stepping- challenging, unable to perform esxcept UE assist, x10 ft 3. semi tandem stepping, 2x10 ft PT-OP-T Assessment and Plan Start: 10/18/24 07:25 Freq: Status: Active Protocol: Document 11/02/24 14:33 NM (Rec: 11/02/24 15:22 NM [id number]) Physical Therapy Assessment Goals Four Impairment unsteadiness and pain on stairs Halfway Goal (LTG) Pt will report <2/10 hip and knee pain while performing at least 8 stairs with or without 1 rail assist and maintain good control with descent to assist with household mobility LTG Duration 12/31/24 Three Impairment STS transfers challenged, unsteady w/o UE assist, 5x STS 17.55 sec Short Term Goal (STG) Pt will increase L hip and knee strength to at least 4+/5 MMT STG Duration 11/19/24 [employer] Goal (LTG) Pt will be able to perform 5x STS in 14.8 sec or less without unsteadiness or UE assist, if appropriate, in order to demonstrate improved transfers LTG Duration 12/31/24 Two Impairment Functional gait assessment , indicates increased fall risk; SLS limite Short Term Goal (STG) Pt will be able to perform SLS bilaterally for at least 5 seconds in order to demonstrate improved ability to weight shift and maintain stability during gait 11/02/24: 1 sec BLE, no UE support STG Duration 11/19/24 [employer] Goal (LTG) Pt will increase FGA score >22 /30 in order to demonstrate decreased fall risk LTG Duration 12/31/24 One Impairment L knee ROM impaired, limits gait and stairs [employer] Goal (LTG) Pt will increase L knee flexion AROM to at least 115 deg and L knee extension AROM to least lacking 4 deg or less in order to improve ability to perform stairs and gait LTG Duration 12/31/24 Assessment Summary Assessment Pt continues to have no knee or hip pain during session. Continued with banded hip strengthening, emphasis on postural control and maintaining balance. Able to progress to no UE support. Balance training progressed to address pt deficits with decreased visual support and weight shifting. Cueing needed for posture, gluteal activation and TKE. Demos tendency for posterior trunk lean to stabilize, lessened with cueing for increased awareness. Catches foot on hurdles but no LOB, needs cueing to limit hip rotation compensations. Physical Therapy Plan Frequency and Duration Frequency of Treatment 2x/Week Duration of treatment (weeks) 10 Plan of Care Start Date 10/18/24 Plan of Care End Date 12/31/24 Therapeutic Interventions Therapeutic Interventions Balance Training,Canalithic Repositioning,Gait Training, Home Exercise Program,Joint Mobilizations,Manual Therapy, Neuromuscular Re-education, Orthotic/Prosthetic Management ,Patient/Caregiver Education, Self-Care/Home Management, Sensory Integration,Soft Tissue Mobilization,Taping, Therapeutic Activities, Therapeutic Exercises, Vestibular Rehabilitation Other Therapeutic Interventions No modalities Next Visit Focus/Plan Next Note Type Treatment Note Next Visit Plan Assess HEP. SLS, update HEP. hurdles. STS vs uni leg press, possibly trial HS curls promote stance LE knee ext and moving knee flex ROM. HS length and rolling pin for self STM. hip strengthening: hip abd, hip ext, STS, leg press, calf stretch Knee mobility: joint mobilizations, HS stretching, quad activation. Trial hip stretching. Initiated hip strengthening. calf stretch and strengthening, core strengthening Balance: SLS training, gluteal activation. 2-4 weight shifting, step tapping, etc
--- NOTE | 2024-11-04 14:07 | PT.OTN ---
Current Diagnoses Other chronic pain (11/04/24) Pain in left hip (11/04/24) Pain in left knee (11/04/24) Stiffness of left hip, not elsewhere classified (11/04/24) Stiffness of left knee, not elsewhere classified (11/04/24) Difficulty in walking, not elsewhere classified (11/04/24) Unsteadiness on feet (11/04/24) Other abnormalities of gait and mobility (11/04/24) Weakness (11/04/24) Physical Therapy Treatment Note PT-OP-A Visit Information Start: 10/18/24 07:25 Freq: Status: Active Protocol: Document 11/04/24 13:00 NM (Rec: 11/04/24 14:06 NM [id number]) Out-Patient Physical Therapy Visit Information Visit Information Visit Type Treatment Note Visit Note KX after 19 visits Visit Start Time 13:02 Visit Stop Time 13:42 Visit Number 6 Evaluation Information Evaluation Date 10/18/24 Precautions Precautions hx of falls, lightheaded with positional changes PT-OP-B Current Condition Start: 10/18/24 07:25 Freq: Status: Active Protocol: Document 10/18/24 13:47 NM (Rec: 10/18/24 14:32 NM [id number]) Current Condition History of Current Condition Onset Date since March 2024 History of Current Condition Pt presents with balance difficulties, L knee pain, and L hip pain. L hip and knee pain originally began after pt fell down the stairs in March, landing on his L side. He states that his balance is improved following his last episode of PT. Reports still ambulating 1 mi with dog often , reports balance ok, not using and AD. Reports that he is having dizziness with standing, transitions from positional changes (sitting > standing). Lightheadedness but not dizziness for 10-15 seconds, worse with turning feels off balance. Reports difficulty with coming up to stand from a chair, feels like need to hold on to stand; not confident on stairs without rail. 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 Still having L knee and hip pain following fall down stairs prior to last PT episode of care. Most difficulty with stepping over or around objects. Treatment Goals Patient/Caregiver Goals gait speed, stepping over shower/curbs, improve balance, decrease pain PT-OP-C Subjective Start: 10/18/24 07:25 Freq: Status: Active Protocol: Document 11/04/24 13:00 NM (Rec: 11/04/24 14:06 NM [id number]) OP-PT Subjective Patient Comments Patient Comments Pt continues to report no knee pain or hip pain. States that no changes since last session . PT-OP-D Balance Start: 10/18/24 07:25 Freq: Status: Active Protocol: Document 10/18/24 13:47 NM (Rec: 10/18/24 14:32 NM [id number]) Balance Tests mCTSIB mCTSIB Position 1 EO, stable: 30 sec mCTSIB Position 2 EC, stable: 30 sec mCTSIB Position 3 EO, unstable: 15 sec mCTSIB Position 4 EC, unstable: 5 sec Single Limb Standing Single Limb- Right 3 sec Single Limb- Left 1 sec Tandem Tandem Standing 10 sec PT-OP-E Functional Tests Start: 10/18/24 13:47 Freq: Status: Active Protocol: Document 10/18/24 13:47 NM (Rec: 10/18/24 14:32 NM [id number]) Functional Tests Five Times Sit to Stand Test Score 17.55 Comments standard chair; unsteady Functional Gait Assessment Score 12/30 PT-OP-F Manual Assessment Start: 10/18/24 07:25 Freq: Status: Active Protocol: Document 10/18/24 13:47 NM (Rec: 10/18/24 14:32 NM [id number]) Manual Assessments Soft Tissue Assessment Soft Tissue Mobility Assessment Increased restrictions of B hamstrings, hip flexors, and calves Joint Mobility Assessment Joint Mobility Assessment Decreased L knee PROM and AROM , empty end feel; more observable passive than active ROM Decreased L hip PROM and AROM with capsular pattern; rotation further limited by knee pain PT-OP-G Mobility & Gait Start: 10/18/24 07:25 Freq: Status: Active Protocol: Document 10/18/24 13:47 NM (Rec: 10/18/24 14:32 NM [id number]) OP Gait Assessment Gait Gait Assistance Required: Standby Assistance Distance (Feet) 150 Assistive Devices Assistive Device Gait Belt Gait Deviations General Gait Pattern Antalgic,Decreased Feet Clearance,Flexed Trunk Factors Limiting Gait Function Factors Limiting Gait Function Decreased Activity Tolerance, Decreased Strength,Limited Range of Motion,Pain,Poor Balance Comments Gait Comments does not use AD Stair Climbing Evaluation Evaluation Level of Assist On Stairs Contact Guard Assistance Technique/Endurance Stair Climbing Direction Ascend and Descend Stair Climbing Technique Step Over Step Number of Steps Climbed 4 Stair Climbing Set # Repetitions (reps) 1 Comments Stair Climbing Comments L lateral hip pain with ascent . Demos poor control with descent, leaning on rails vs use of rails for hand support or balance. Unsteadiness with turning on stairs PT-OP-J Posture/Palpation/Skin Start: 10/18/24 07:25 Freq: Status: Active Protocol: Document 10/18/24 13:47 NM (Rec: 10/18/24 14:32 NM [id number]) Posture Evaluation Position Standing Head/C-Spine Posture Forward Head T-Spine Posture Increased Kyphosis Shoulder Posture (L) Rounded,(R) Rounded Pelvis Posture Posterior Tilted Weight Distribution Weight Shifted Right Hip Posture (L) Externally Rotated,(R) Externally Rotated Knee Posture (L) Genu Varus,(R) Genu Varus Comments Posture Comments increased trunk flexion, maintains B knee flexion in stance and gait Palpation Assessment Location L hip Palpation Details Tenderness to palpation and tightness of TFL, glutes, and deep hip anteriorly L knee Palpation Details Tenderness along both medial and lateral joint lines and compartments. increased restrictions of hamstrings and muscle inserting into pes anserine; quad tightness Limited patellar mobility maintains knee flexion at all times PT-OP-K Range of Motion Start: 10/18/24 07:25 Freq: Status: Active Protocol: Document 10/18/24 13:47 NM (Rec: 10/18/24 14:32 NM [id number]) Hip Goniometric Range of Motion Hip Right Flexion w/Knee Flexed 108 Internal Rotation 28 External Rotation 28 Left Flexion w/Knee Flexed 95 Internal Rotation 28 External Rotation 25 Comments pain at medial knee, limited hip ROM with IR Knee Goniometric Range of Motion Knee Right Flexion Active (degrees) 118 Extension Active (degrees) 5 Left Flexion Active (degrees) 95 Extension Active (degrees) 8 Comments pain with flex, end range ext PT-OP-L Special Tests Start: 10/18/24 07:25 Freq: Status: Active Protocol: Document 10/18/24 13:47 NM (Rec: 10/18/24 15:40 NM [id number]) Special Tests Hip Special Tests [facility] Resisted Hip Flexion Test Results - FADIR Test Results + Comments limited at hip, mild pain BILLIE Test Results + Comments knee and hip posteriorly Knee Special Tests Swetha Test Results - Varus Test Results - Valgus Test Results - PT-OP-M Strength Start: 10/18/24 07:25 Freq: Status: Active Protocol: Document 10/18/24 13:47 NM (Rec: 10/18/24 14:32 NM [id number]) Hip Strength Hip Manual Muscle Testing Right Flexion (L2) 4 Good Extension (S1) 4- Good- Abduction 4- Good- Adduction 4- Good- External Rotation 4- Good- Internal Rotation 4- Good- Left Flexion (L2) 4- Good- Extension (S1) 4- Good- Abduction 4- Good- Adduction 4- Good- External Rotation 4- Good- Internal Rotation 4- Good- Knee Strength Knee Manual Muscle Testing Right Flexion (S2) 4 Good Extension (L3) 4 Good Left Flexion (S2) 4- Good- Extension (L3) 4- Good- Comments no pain with resisted testing PT-OP-Q Treatments Start: 10/18/24 07:25 Freq: Status: Active Protocol: Document 11/04/24 13:00 NM (Rec: 11/04/24 14:06 NM [id number]) Therapeutic Exercises Standing Exercises calf stretch Side bilateral Equipment Used on 4 steps, B hand support for balance Reps/Minutes 60 steps hip extension Standing Exercise Name trialed c/ slider Side bilateral Resistance AROM Equipment Used 1 hand support on bar for balance Reps/Minutes 10 hip abduction Standing Exercise Name trialed c/ slider Side bilateral Resistance AROM Equipment Used 1 hand support on bar Reps/Minutes 10 Comments brief twinge of discomfort but resolves quickly toe raises Side bilateral Equipment Used back at wall Reps/Minutes 10 c/o wt, 2x10 c/ 1# on toes hamstring stretch Standing Exercise Name on 3rd 4 step Side bilateral Equipment Used B hand support for balance Reps/Minutes 60 ea Comments no pain hip flexor stretch Standing Exercise Name HEP reviewed: hip flexor Side bilateral Equipment Used c/ ppt (cued glute squeeze) Reps/Minutes 60 ea Comments cued neutral foot Other Exercises step up Other Exercise Name trialed in PT: 4, 1. fwd, 2. lateral Side bilateral Equipment Used no UE support; close SBA Reps/Minutes 1. 10 ea, 2. 10 ea Comments no hip or knee pain LLE; LLE more challenging Neuro Re-Education Treatment Balance Activities stepping Details fwd, lateral, bwd stepping over dowels Surface stable Reps/Duration 4 dowels, 2 sets ea direction Comments 1. vertical dowels 2. horizontal dowels Cueing for posture, wider SALVADOR, slightly larger step length anita with retro and lateral stepping. LLE more challenging to maintain stability in stance while stepping in addition to L step length SLS Details close SBA Surface stable Equipment 1 finger support Comments still challenging for pt; cued for glute activation and core facilitation, TKE 1. stance c/ 1 finger support on stable surface, 2x30 ea, less sway today 2. ankle DF c/ melton bags, 10 ea to treadmill 3. c/o UE support hurdles Details SBA, prn CGA (less support today) Surface stable Reps/Duration 6 hurdles x 2 sets ea Comments 1. fwd stepping, reciprocal clips 1 radha but maintains taller posture, less post lean c/ cueing 2. lateral stepping cueing for neutral hip position, anita LLE PT-OP-T Assessment and Plan Start: 10/18/24 07:25 Freq: Status: Active Protocol: Document 11/04/24 13:00 NM (Rec: 11/04/24 14:06 NM [id number]) Physical Therapy Assessment Goals Four Impairment unsteadiness and pain on stairs Choir Member Goal (LTG) Pt will report <2/10 hip and knee pain while performing at least 8 stairs with or without 1 rail assist and maintain good control with descent to assist with household mobility 11/04/24: initiated step ups on 4 steps fwd and lateral LTG Duration 12/31/24 Three Impairment STS transfers challenged, unsteady w/o UE assist, 5x STS 17.55 sec Short Term Goal (STG) Pt will increase L hip and knee strength to at least 4+/5 MMT STG Duration 11/19/24 Halfway Goal (LTG) Pt will be able to perform 5x STS in 14.8 sec or less without unsteadiness or UE assist, if appropriate, in order to demonstrate improved transfers LTG Duration 12/31/24 Two Impairment Functional gait assessment , indicates increased fall risk; SLS limite Short Term Goal (STG) Pt will be able to perform SLS bilaterally for at least 5 seconds in order to demonstrate improved ability to weight shift and maintain stability during gait 11/02/24: 1 sec BLE, no UE support STG Duration 11/19/24 Choir Member Goal (LTG) Pt will increase FGA score >22 /30 in order to demonstrate decreased fall risk LTG Duration 12/31/24 One Impairment L knee ROM impaired, limits gait and stairs Halfway Goal (LTG) Pt will increase L knee flexion AROM to at least 115 deg and L knee extension AROM to least lacking 4 deg or less in order to improve ability to perform stairs and gait LTG Duration 12/31/24 Assessment Summary Assessment Pt tolerated session well. Progressed to step ups on 4 and slider. Pt has brief L knee pain with sliders but did not persist. Cueing for more hip hinge and form to maintain alignment. Demos tendency to maintain knee flexion at all times, partially due to restrictions in hamstring length but also due to quad/ glute weakness as compensation during reduced SALVADOR. Maintaining single leg support during stance and while stepping is most challenging for pt. Needs visual input to maintain balance and has tendency to lean forward at trunk. Decreased assist from PT needed today for hurdles, fewer instances of clipping hurdles with foot. Pt would continue to benefit from skilled PT for progressive strengthening and balance training in order to improve stance time during ambulation and to decrease risk of falls due to fall history. Physical Therapy Plan Frequency and Duration Frequency of Treatment 2x/Week Duration of treatment (weeks) 10 Plan of Care Start Date 10/18/24 Plan of Care End Date 12/31/24 Therapeutic Interventions Therapeutic Interventions Balance Training,Canalithic Repositioning,Gait Training, Home Exercise Program,Joint Mobilizations,Manual Therapy, Neuromuscular Re-education, Orthotic/Prosthetic Management ,Patient/Caregiver Education, Self-Care/Home Management, Sensory Integration,Soft Tissue Mobilization,Taping, Therapeutic Activities, Therapeutic Exercises, Vestibular Rehabilitation Other Therapeutic Interventions No modalities Next Visit Focus/Plan Next Note Type Treatment Note Next Visit Plan Assess and update HEP. Stance time, stepping, retro stepping . Assess evens to slider, step up. Trial uni leg press, cont with STS. possibly trial HS curls promote stance LE knee ext and moving knee flex ROM. core strength Knee mobility: joint mobilizations, HS stretching, quad activation. Balance: SLS training, gluteal activation. 2-4 weight shifting, step tapping, etc
--- NOTE | 2024-11-09 15:40 | PT.OTN ---
Current Diagnoses Other chronic pain (11/09/24) Pain in left hip (11/09/24) Pain in left knee (11/09/24) Stiffness of left hip, not elsewhere classified (11/09/24) Stiffness of left knee, not elsewhere classified (11/09/24) Difficulty in walking, not elsewhere classified (11/09/24) Unsteadiness on feet (11/09/24) Other abnormalities of gait and mobility (11/09/24) Weakness (11/09/24) Physical Therapy Treatment Note PT-OP-A Visit Information Start: 10/18/24 07:25 Freq: Status: Active Protocol: Document 11/09/24 13:48 NM (Rec: 11/09/24 14:31 NM [id number]) Out-Patient Physical Therapy Visit Information Visit Information Visit Type Treatment Note Visit Note KX after 19 visits Visit Start Time 13:48 Visit Stop Time 14:29 Visit Number 7 Evaluation Information Evaluation Date 10/18/24 Precautions Precautions hx of falls, lightheaded with positional changes PT-OP-B Current Condition Start: 10/18/24 07:25 Freq: Status: Active Protocol: Document 10/18/24 13:47 NM (Rec: 10/18/24 14:32 NM [id number]) Current Condition History of Current Condition Onset Date since March 2024 History of Current Condition Pt presents with balance difficulties, L knee pain, and L hip pain. L hip and knee pain originally began after pt fell down the stairs in March, landing on his L side. He states that his balance is improved following his last episode of PT. Reports still ambulating 1 mi with dog often , reports balance ok, not using and AD. Reports that he is having dizziness with standing, transitions from positional changes (sitting > standing). Lightheadedness but not dizziness for 10-15 seconds, worse with turning feels off balance. Reports difficulty with coming up to stand from a chair, feels like need to hold on to stand; not confident on stairs without rail. 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 Still having L knee and hip pain following fall down stairs prior to last PT episode of care. Most difficulty with stepping over or around objects. Treatment Goals Patient/Caregiver Goals gait speed, stepping over shower/curbs, improve balance, decrease pain PT-OP-C Subjective Start: 10/18/24 07:25 Freq: Status: Active Protocol: Document 11/09/24 13:48 NM (Rec: 11/09/24 14:31 NM [id number]) OP-PT Subjective Patient Comments Patient Comments Pt has no hip or knee pain. States has been walking a lot, trying to do a lot of balance and his exercises. Able to report without pain. Pt has been bending to get ball for dog, lifting. Still wants to work on balance. PT-OP-D Balance Start: 10/18/24 07:25 Freq: Status: Active Protocol: Document 10/18/24 13:47 NM (Rec: 10/18/24 14:32 NM [id number]) Balance Tests mCTSIB mCTSIB Position 1 EO, stable: 30 sec mCTSIB Position 2 EC, stable: 30 sec mCTSIB Position 3 EO, unstable: 15 sec mCTSIB Position 4 EC, unstable: 5 sec Single Limb Standing Single Limb- Right 3 sec Single Limb- Left 1 sec Tandem Tandem Standing 10 sec PT-OP-E Functional Tests Start: 10/18/24 13:47 Freq: Status: Active Protocol: Document 10/18/24 13:47 NM (Rec: 10/18/24 14:32 NM [id number]) Functional Tests Five Times Sit to Stand Test Score 17.55 Comments standard chair; unsteady Functional Gait Assessment Score 12/30 PT-OP-F Manual Assessment Start: 10/18/24 07:25 Freq: Status: Active Protocol: Document 10/18/24 13:47 NM (Rec: 10/18/24 14:32 NM [id number]) Manual Assessments Soft Tissue Assessment Soft Tissue Mobility Assessment Increased restrictions of B hamstrings, hip flexors, and calves Joint Mobility Assessment Joint Mobility Assessment Decreased L knee PROM and AROM , empty end feel; more observable passive than active ROM Decreased L hip PROM and AROM with capsular pattern; rotation further limited by knee pain PT-OP-G Mobility & Gait Start: 10/18/24 07:25 Freq: Status: Active Protocol: Document 10/18/24 13:47 NM (Rec: 10/18/24 14:32 NM [id number]) OP Gait Assessment Gait Gait Assistance Required: Standby Assistance Distance (Feet) 150 Assistive Devices Assistive Device Gait Belt Gait Deviations General Gait Pattern Antalgic,Decreased Feet Clearance,Flexed Trunk Factors Limiting Gait Function Factors Limiting Gait Function Decreased Activity Tolerance, Decreased Strength,Limited Range of Motion,Pain,Poor Balance Comments Gait Comments does not use AD Stair Climbing Evaluation Evaluation Level of Assist On Stairs Contact Guard Assistance Technique/Endurance Stair Climbing Direction Ascend and Descend Stair Climbing Technique Step Over Step Number of Steps Climbed 4 Stair Climbing Set # Repetitions (reps) 1 Comments Stair Climbing Comments L lateral hip pain with ascent . Demos poor control with descent, leaning on rails vs use of rails for hand support or balance. Unsteadiness with turning on stairs PT-OP-J Posture/Palpation/Skin Start: 10/18/24 07:25 Freq: Status: Active Protocol: Document 10/18/24 13:47 NM (Rec: 10/18/24 14:32 NM [id number]) Posture Evaluation Position Standing Head/C-Spine Posture Forward Head T-Spine Posture Increased Kyphosis Shoulder Posture (L) Rounded,(R) Rounded Pelvis Posture Posterior Tilted Weight Distribution Weight Shifted Right Hip Posture (L) Externally Rotated,(R) Externally Rotated Knee Posture (L) Genu Varus,(R) Genu Varus Comments Posture Comments increased trunk flexion, maintains B knee flexion in stance and gait Palpation Assessment Location L hip Palpation Details Tenderness to palpation and tightness of TFL, glutes, and deep hip anteriorly L knee Palpation Details Tenderness along both medial and lateral joint lines and compartments. increased restrictions of hamstrings and muscle inserting into pes anserine; quad tightness Limited patellar mobility maintains knee flexion at all times PT-OP-K Range of Motion Start: 10/18/24 07:25 Freq: Status: Active Protocol: Document 11/09/24 13:48 NM (Rec: 11/09/24 15:39 NM [id number]) Hip Goniometric Range of Motion Hip Right Flexion w/Knee Flexed 108 Internal Rotation 28 External Rotation 28 Left Flexion w/Knee Flexed 110 Internal Rotation 28 External Rotation 30 Comments IE: pain at medial knee, limited hip ROM with IR 11/09/24: no pain Knee Goniometric Range of Motion Knee Right Flexion Active (degrees) 118 Extension Active (degrees) 5 Left Flexion Active (degrees) 115 Extension Active (degrees) 3 Comments IE: pain with flex, end range ext 11/09/24: no pain PT-OP-L Special Tests Start: 10/18/24 07:25 Freq: Status: Active Protocol: Document 10/18/24 13:47 NM (Rec: 10/18/24 15:40 NM [id number]) Special Tests Hip Special Tests Stinchfield Resisted Hip Flexion Test Results - FADIR Test Results + Comments limited at hip, mild pain BILLIE Test Results + Comments knee and hip posteriorly Knee Special Tests Swetha Test Results - Varus Test Results - Valgus Test Results - PT-OP-M Strength Start: 10/18/24 07:25 Freq: Status: Active Protocol: Document 10/18/24 13:47 NM (Rec: 10/18/24 14:32 NM [id number]) Hip Strength Hip Manual Muscle Testing Right Flexion (L2) 4 Good Extension (S1) 4- Good- Abduction 4- Good- Adduction 4- Good- External Rotation 4- Good- Internal Rotation 4- Good- Left Flexion (L2) 4- Good- Extension (S1) 4- Good- Abduction 4- Good- Adduction 4- Good- External Rotation 4- Good- Internal Rotation 4- Good- Knee Strength Knee Manual Muscle Testing Right Flexion (S2) 4 Good Extension (L3) 4 Good Left Flexion (S2) 4- Good- Extension (L3) 4- Good- Comments no pain with resisted testing PT-OP-Q Treatments Start: 10/18/24 07:25 Freq: Status: Active Protocol: Document 11/09/24 13:48 NM (Rec: 11/09/24 14:31 NM [id number]) Therapeutic Exercises Supine Exercises hamstring stretch Supine Exercise Name HEP review Side bilateral Equipment Used strap assist Reps/Minutes 60 Standing Exercises hamstring curl Side bilateral Resistance 1. AROM, 2. 1# wt at ankles Reps/Minutes 10 ea position Comments for SLS, HS curl for gait hip extension Standing Exercise Name c/ slider Side bilateral Resistance level 2 band at thighs Equipment Used 1 hand support on bar for balance Reps/Minutes 10 ea Comments improved form, posture hip flexion Standing Exercise Name slider Side bilateral Resistance level 2 band at thighs Equipment Used 1 hand support on bar Reps/Minutes 10 ea Comments improved form and posture hip abduction Standing Exercise Name slider Side bilateral Resistance level 2 band thighs Equipment Used 1 hand support on bar Reps/Minutes 10 ea Comments improved form and posture Other Exercises step up Other Exercise Name 6 step: 1. fwd (HEP), 2. lateral Side bilateral Equipment Used no UE support; close SBA Reps/Minutes 1. 15 ea reciprocal, 2. 10 ea Comments cued neutral foot, alignment, no pain but challenging ht Neuro Re-Education Treatment Balance Activities head turning Details close SBA, prn CGA Reps/Duration 2x 50 ft Comments 1. head turns in burns c/ ambulation 2. ball toss c/ head turns while ambulating cued to maintain ambulation while turning head, tends to stop or slow gait while turning head. better with ball toss but still challenging to maintain balance, turn while ambulating stepping Details close SBA Reps/Duration 4 sets x 25 ft ea Comments 1. ladders (a) horizontal (b) fwd (c) retro cueing to avoid kicking ladder but can step on rungs if needed due to foot length. improved with reps. does not move ladder. retro stepping most challenging initially especially with reciprocal pattern but improves with reps 2. retro stepping for carryover Improved step length post ladders, demos need for fewer cues for step length and more even steps 3. carioca (a) not carrying object (b) carrying object for dual tasking cueing for coordination initially. no LOB, able to rotate hips and trunk with minimal cueing as reps increased and increased speed 4. tall stepping (a) not carrying object (b) carrying object no LOB, challenging to hold object. heavy heel strike, maintains tall posture PT-OP-T Assessment and Plan Start: 10/18/24 07:25 Freq: Status: Active Protocol: Document 11/09/24 13:48 NM (Rec: 11/09/24 14:31 NM [id number]) Physical Therapy Assessment Goals Four Impairment unsteadiness and pain on stairs Sales Promotion Officer Goal (LTG) Pt will report <2/10 hip and knee pain while performing at least 8 stairs with or without 1 rail assist and maintain good control with descent to assist with household mobility 11/04/24: initiated step ups on 4 steps fwd and lateral 11/09/24: LTG Duration 12/31/24 Three Impairment STS transfers challenged, unsteady w/o UE assist, 5x STS 17.55 sec Short Term Goal (STG) Pt will increase L hip and knee strength to at least 4+/5 MMT STG Duration 11/19/24 Sales Promotion Officer Goal (LTG) Pt will be able to perform 5x STS in 14.8 sec or less without unsteadiness or UE assist, if appropriate, in order to demonstrate improved transfers LTG Duration 12/31/24 Two Impairment Functional gait assessment , indicates increased fall risk; SLS limite Short Term Goal (STG) Pt will be able to perform SLS bilaterally for at least 5 seconds in order to demonstrate improved ability to weight shift and maintain stability during gait 11/02/24: 1 sec BLE, no UE support 11/09/24: STG Duration 11/19/24 Sales Promotion Officer Goal (LTG) Pt will increase FGA score >22 30 in order to demonstrate decreased fall risk LTG Duration 12/31/24 One Impairment L knee ROM impaired, limits gait and stairs Sales Promotion Officer Goal (LTG) Pt will increase L knee flexion AROM to at least 115 deg and L knee extension AROM to least lacking 4 deg or less in order to improve ability to perform stairs and gait 11/09/24: 115 deg to lacking 3 deg LTG Duration 12/31/24 Assessment Summary Assessment Pt tolerated session well, no hip or knee pain. Improvements demonstrated in L hip and knee ROM, met goal. Progressed to 6 step ups forward and laterally. Lateral motion most challenging, demos decreased steadiness with activity; cueing needed for alignment. Trialed use of ladder for stepping retraining to promote improved step height and foot clearance during gait. Demos most consistent step length, speed, and postural corrections independently especially with retro stepping and trunk rotation/carioca following use of ladder. Less cueing needed for step length following. Still most restricted with head movements at this time while ambulating ; challenging for pt to steady self while turning head or dual tasking while ambulating. Physical Therapy Plan Frequency and Duration Frequency of Treatment 2x/Week Duration of treatment (weeks) 10 Plan of Care Start Date 10/18/24 Plan of Care End Date 12/31/24 Therapeutic Interventions Therapeutic Interventions Balance Training,Canalithic Repositioning,Gait Training, Home Exercise Program,Joint Mobilizations,Manual Therapy, Neuromuscular Re-education, Orthotic/Prosthetic Management ,Patient/Caregiver Education, Self-Care/Home Management, Sensory Integration,Soft Tissue Mobilization,Taping, Therapeutic Activities, Therapeutic Exercises, Vestibular Rehabilitation Other Therapeutic Interventions No modalities Next Visit Focus/Plan Next Note Type Treatment Note Next Visit Plan Assess and update HEP. Stance time, stepping, retro stepping . Work on balance with stepping over objects, picking up objects, head turns and ambulation/coordination/dual tasking. Fwd 6 to 8 stpe up if evens, lateral 6 step up. Trial uni leg press, cont with STS. core strength: pallof, push up, plank
--- NOTE | 2024-11-12 13:46 | PT.OTN ---
Current Diagnoses Other chronic pain (11/12/24) Pain in left hip (11/12/24) Pain in left knee (11/12/24) Stiffness of left hip, not elsewhere classified (11/12/24) Stiffness of left knee, not elsewhere classified (11/12/24) Difficulty in walking, not elsewhere classified (11/12/24) Unsteadiness on feet (11/12/24) Other abnormalities of gait and mobility (11/12/24) Weakness (11/12/24) Physical Therapy Treatment Note PT-OP-A Visit Information Start: 10/18/24 07:25 Freq: Status: Active Protocol: Document 11/12/24 13:03 SP (Rec: 11/12/24 13:51 SP [id number]) Out-Patient Physical Therapy Visit Information Visit Information Visit Type Treatment Note Visit Note KX after 19 visits Visit Start Time 13:03 Visit Stop Time 13:46 Visit Number 8 (04/24 with eval) Number of DOCTOR ASSISTANT Visits 1 Evaluation Information Evaluation Date 10/18/24 Precautions Precautions hx of falls, lightheaded with positional changes PT-OP-B Current Condition Start: 10/18/24 07:25 Freq: Status: Active Protocol: Document 10/18/24 13:47 NM (Rec: 10/18/24 14:32 NM [id number]) Current Condition History of Current Condition Onset Date since March 2024 History of Current Condition Pt presents with balance difficulties, L knee pain, and L hip pain. L hip and knee pain originally began after pt fell down the stairs in March, landing on his L side. He states that his balance is improved following his last episode of PT. Reports still ambulating 1 mi with dog often , reports balance ok, not using and AD. Reports that he is having dizziness with standing, transitions from positional changes (sitting > standing). Lightheadedness but not dizziness for 10-15 seconds, worse with turning feels off balance. Reports difficulty with coming up to stand from a chair, feels like need to hold on to stand; not confident on stairs without rail. 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 Still having L knee and hip pain following fall down stairs prior to last PT episode of care. Most difficulty with stepping over or around objects. Treatment Goals Patient/Caregiver Goals gait speed, stepping over shower/curbs, improve balance, decrease pain PT-OP-C Subjective Start: 10/18/24 07:25 Freq: Status: Active Protocol: Document 11/12/24 13:03 SP (Rec: 11/12/24 13:51 SP [id number]) OP-PT Subjective Patient Comments Patient Comments Pt reports doing well, walking 3 miles day walkign dog start stop level surfaces [facility]. Reports HEP performance: toe raises, step ups, SLS near counter PRN contact. PT-OP-D Balance Start: 10/18/24 07:25 Freq: Status: Active Protocol: Document 10/18/24 13:47 NM (Rec: 10/18/24 14:32 NM [id number]) Balance Tests mCTSIB mCTSIB Position 1 EO, stable: 30 sec mCTSIB Position 2 EC, stable: 30 sec mCTSIB Position 3 EO, unstable: 15 sec mCTSIB Position 4 EC, unstable: 5 sec Single Limb Standing Single Limb- Right 3 sec Single Limb- Left 1 sec Tandem Tandem Standing 10 sec PT-OP-E Functional Tests Start: 10/18/24 13:47 Freq: Status: Active Protocol: Document 10/18/24 13:47 NM (Rec: 10/18/24 14:32 NM [id number]) Functional Tests Five Times Sit to Stand Test Score 17.55 Comments standard chair; unsteady Functional Gait Assessment Score 12/30 PT-OP-F Manual Assessment Start: 10/18/24 07:25 Freq: Status: Active Protocol: Document 10/18/24 13:47 NM (Rec: 10/18/24 14:32 NM [id number]) Manual Assessments Soft Tissue Assessment Soft Tissue Mobility Assessment Increased restrictions of B hamstrings, hip flexors, and calves Joint Mobility Assessment Joint Mobility Assessment Decreased L knee PROM and AROM , empty end feel; more observable passive than active ROM Decreased L hip PROM and AROM with capsular pattern; rotation further limited by knee pain PT-OP-G Mobility & Gait Start: 10/18/24 07:25 Freq: Status: Active Protocol: Document 10/18/24 13:47 NM (Rec: 10/18/24 14:32 NM [id number]) OP Gait Assessment Gait Gait Assistance Required: Standby Assistance Distance (Feet) 150 Assistive Devices Assistive Device Gait Belt Gait Deviations General Gait Pattern Antalgic,Decreased Feet Clearance,Flexed Trunk Factors Limiting Gait Function Factors Limiting Gait Function Decreased Activity Tolerance, Decreased Strength,Limited Range of Motion,Pain,Poor Balance Comments Gait Comments does not use AD Stair Climbing Evaluation Evaluation Level of Assist On Stairs Contact Guard Assistance Technique/Endurance Stair Climbing Direction Ascend and Descend Stair Climbing Technique Step Over Step Number of Steps Climbed 4 Stair Climbing Set # Repetitions (reps) 1 Comments Stair Climbing Comments L lateral hip pain with ascent . Demos poor control with descent, leaning on rails vs use of rails for hand support or balance. Unsteadiness with turning on stairs PT-OP-J Posture/Palpation/Skin Start: 10/18/24 07:25 Freq: Status: Active Protocol: Document 10/18/24 13:47 NM (Rec: 10/18/24 14:32 NM [id number]) Posture Evaluation Position Standing Head/C-Spine Posture Forward Head T-Spine Posture Increased Kyphosis Shoulder Posture (L) Rounded,(R) Rounded Pelvis Posture Posterior Tilted Weight Distribution Weight Shifted Right Hip Posture (L) Externally Rotated,(R) Externally Rotated Knee Posture (L) Genu Varus,(R) Genu Varus Comments Posture Comments increased trunk flexion, maintains B knee flexion in stance and gait Palpation Assessment Location L hip Palpation Details Tenderness to palpation and tightness of TFL, glutes, and deep hip anteriorly L knee Palpation Details Tenderness along both medial and lateral joint lines and compartments. increased restrictions of hamstrings and muscle inserting into pes anserine; quad tightness Limited patellar mobility maintains knee flexion at all times PT-OP-K Range of Motion Start: 10/18/24 07:25 Freq: Status: Active Protocol: Document 11/09/24 13:48 NM (Rec: 11/09/24 15:39 NM [id number]) Hip Goniometric Range of Motion Hip Right Flexion w/Knee Flexed 108 Internal Rotation 28 External Rotation 28 Left Flexion w/Knee Flexed 110 Internal Rotation 28 External Rotation 30 Comments IE: pain at medial knee, limited hip ROM with IR 11/09/24: no pain Knee Goniometric Range of Motion Knee Right Flexion Active (degrees) 118 Extension Active (degrees) 5 Left Flexion Active (degrees) 115 Extension Active (degrees) 3 Comments IE: pain with flex, end range ext 11/09/24: no pain PT-OP-L Special Tests Start: 10/18/24 07:25 Freq: Status: Active Protocol: Document 10/18/24 13:47 NM (Rec: 10/18/24 15:40 NM [id number]) Special Tests Hip [facility] Resisted Hip Flexion Test Results - FADIR Test Results + Comments limited at hip, mild pain BILLIE Test Results + Comments knee and hip posteriorly Knee Special Tests [place] Test Results - Varus Test Results - Valgus Test Results - PT-OP-M Strength Start: 10/18/24 07:25 Freq: Status: Active Protocol: Document 10/18/24 13:47 NM (Rec: 10/18/24 14:32 NM [id number]) Hip Strength Hip Manual Muscle Testing Right Flexion (L2) 4 Good Extension (S1) 4- Good- Abduction 4- Good- Adduction 4- Good- External Rotation 4- Good- Internal Rotation 4- Good- Left Flexion (L2) 4- Good- Extension (S1) 4- Good- Abduction 4- Good- Adduction 4- Good- External Rotation 4- Good- Internal Rotation 4- Good- Knee Strength Knee Manual Muscle Testing Right Flexion (S2) 4 Good Extension (L3) 4 Good Left Flexion (S2) 4- Good- Extension (L3) 4- Good- Comments no pain with resisted testing PT-OP-Q Treatments Start: 10/18/24 07:25 Freq: Status: Active Protocol: Document 11/12/24 13:03 SP (Rec: 11/12/24 13:51 SP [id number]) Therapeutic Exercises Supine Exercises ITB stretch Supine Exercise Name HEP reviewed Side bilateral Resistance R>L tightness Equipment Used use strap on foot opp leg straight Reps/Minutes 60 Comments cued cross leg opp side evens range- good stretch hamstring stretch Supine Exercise Name HEP review Side bilateral Equipment Used use strap on foot opp leg straight Reps/Minutes 60 Comments cued keep head down relaxed Standing Exercises hamstring curl Side bilateral Resistance 2# wt at ankles Reps/Minutes alternating BLEs 20 reps each side Comments for SLS bal component, HS curl for gait hip extension Standing Exercise Name c/ slider- added to HEP /c HO Side bilateral Resistance level 2 band at thighs Equipment Used light 1 hand support on bar for balance Reps/Minutes 10 ea Comments improved form, posture hip flexion Standing Exercise Name slider- added to HEP /C HO Side bilateral Resistance level 2 band at thighs Equipment Used light 1 hand support on bar Reps/Minutes 10 ea Comments improved form and posture hip abduction Standing Exercise Name slider- added to HEP /c HO Side bilateral Resistance level 2 band thighs Equipment Used light 1 hand support on bar for balance Reps/Minutes 10 ea Comments improved form and posture Other Exercises step up Other Exercise Name 6 step: 1. fwd (HEP), 2. lateral Side bilateral Resistance 2# leg wts Equipment Used no UE support; SBA Reps/Minutes 1. 15 ea reciprocal stepping, 2. 15 ea repeated Comments good form and safe pacing. Neuro Re-Education Treatment Balance Activities [place] stepping Comments 20 ft x3 laps /c balltoss 90% time maintain patterning tandem stepping Details fwd and bwd Equipment open area using seam carpet Reps/Duration 20 ft x3 laps Comments 90% time heel to toe, 2 off side step stabilize self. head turning Details close SBA. Metronone 101 bpm Reps/Duration 2x 50 [address] hallway Comments head turns in burns c/ fwd ambulation challenging maintain arm swing and head turn every 4 steps retro stepping Details Bwd: metronome 93 bpm Surface CGA Reps/Duration 50 ft x2 laps Comments cued increase stride & arm swing PT-OP-T Assessment and Plan Start: 10/18/24 07:25 Freq: Status: Active Protocol: Document 11/12/24 13:03 SP (Rec: 11/12/24 13:51 SP [id number]) Physical Therapy Assessment Goals Four Impairment unsteadiness and pain on stairs Retirement Goal (LTG) Pt will report <2/10 hip and knee pain while performing at least 8 stairs with or without 1 rail assist and maintain good control with descent to assist with household mobility 11/04/24: initiated step ups on 4 steps fwd and lateral 11/09/24: LTG Duration 12/31/24 Three Impairment STS transfers challenged, unsteady w/o UE assist, 5x STS 17.55 sec Short Term Goal (STG) Pt will increase L hip and knee strength to at least 4+/5 MMT STG Duration 11/19/24 Retirement Goal (LTG) Pt will be able to perform 5x STS in 14.8 sec or less without unsteadiness or UE assist, if appropriate, in order to demonstrate improved transfers LTG Duration 12/31/24 Two Impairment Functional gait assessment , indicates increased fall risk; SLS limite Short Term Goal (STG) Pt will be able to perform SLS bilaterally for at least 5 seconds in order to demonstrate improved ability to weight shift and maintain stability during gait 11/02/24: 1 sec BLE, no UE support 11/09/24: STG Duration 11/19/24 Retirement Goal (LTG) Pt will increase FGA score >22 /30 in order to demonstrate decreased fall risk LTG Duration 12/31/24 One Impairment L knee ROM impaired, limits gait and stairs Retirement Goal (LTG) Pt will increase L knee flexion AROM to at least 115 deg and L knee extension AROM to least lacking 4 deg or less in order to improve ability to perform stairs and gait 11/09/24: 115 deg to lacking 3 deg LTG Duration 12/31/24 Assessment Summary Assessment Pt good response to increased 2 lb leg wt resistance to standing sliders, HS curl and receiprocal stepping today with noted little balance component self midline stability. Progressed dynamic stepping [place] with tall passes almost 100% continued patterning, tandem fwd and bwd 80% good performance, and increased speed kiko fwd walking with metronome 101 bpm cues arm swing, trialed add head turns, challenging slower pacing with smaller steps and couple times semi tandem step self corrections, able maintain last 10 ft of 2nd lap . Ed end discussed incorporated increased speed with HTs for balance component carryover performs scanning in parkinglot looking for cars coming. Physical Therapy Plan Frequency and Duration Frequency of Treatment 2x/Week Duration of treatment (weeks) 10 Plan of Care Start Date 10/18/24 Plan of Care End Date 12/31/24 Therapeutic Interventions Therapeutic Interventions Balance Training,Canalithic Repositioning,Gait Training, Home Exercise Program,Joint Mobilizations,Manual Therapy, Neuromuscular Re-education, Orthotic/Prosthetic Management ,Patient/Caregiver Education, Self-Care/Home Management, Sensory Integration,Soft Tissue Mobilization,Taping, Therapeutic Activities, Therapeutic Exercises, Vestibular Rehabilitation Other Therapeutic Interventions No modalities Next Visit Focus/Plan Next Note Type Discharge Summary Next Visit Plan Check next appt pt maybe ready for DC, be sure cancel remaining appts. Finalize HEP, mention [place] or provide HOs if he wants to self incorporate progression, can add leg wts (suggest 1/2 lb bars like our bottom cart). Continue: Stance time, fwd 101bpm stepping, retro 93 bpm stepping with metronome. Work on balance with stepping over objects, picking up objects, head turns and ambulation/ coordination/dual tasking. Fwd 6 to 8 stpe up if evens, lateral 6 step up. Trial uni leg press, trial STS on uneven foam or tilt board. core strength: pallof, push up, plank
--- NOTE | 2024-11-16 15:06 | PT.OTN ---
Current Diagnoses Other chronic pain (11/16/24) Pain in left hip (11/16/24) Pain in left knee (11/16/24) Stiffness of left hip, not elsewhere classified (11/16/24) Stiffness of left knee, not elsewhere classified (11/16/24) Difficulty in walking, not elsewhere classified (11/16/24) Unsteadiness on feet (11/16/24) Other abnormalities of gait and mobility (11/16/24) Weakness (11/16/24) Physical Therapy Treatment Note PT-OP-A Visit Information Start: 10/18/24 07:25 Freq: Status: Active Protocol: Document 11/16/24 13:01 NM (Rec: 11/16/24 13:46 NM [id number]) Out-Patient Physical Therapy Visit Information Visit Information Visit Type Progress Note Visit Note KX after 19 visits Visit Start Time 13:03 Visit Stop Time 13:45 Visit Number 9 (05/25 with eval) Evaluation Information Evaluation Date 10/18/24 Precautions Precautions hx of falls, lightheaded with positional changes PT-OP-B Current Condition Start: 10/18/24 07:25 Freq: Status: Active Protocol: Document 10/18/24 13:47 NM (Rec: 10/18/24 14:32 NM [id number]) Current Condition History of Current Condition Onset Date since March 2024 History of Current Condition Pt presents with balance difficulties, L knee pain, and L hip pain. L hip and knee pain originally began after pt fell down the stairs in March, landing on his L side. He states that his balance is improved following his last episode of PT. Reports still ambulating 1 mi with dog often , reports balance ok, not using and AD. Reports that he is having dizziness with standing, transitions from positional changes (sitting > standing). Lightheadedness but not dizziness for 10-15 seconds, worse with turning feels off balance. Reports difficulty with coming up to stand from a chair, feels like need to hold on to stand; not confident on stairs without rail. 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 Still having L knee and hip pain following fall down stairs prior to last PT episode of care. Most difficulty with stepping over or around objects. Treatment Goals Patient/Caregiver Goals gait speed, stepping over shower/curbs, improve balance, decrease pain PT-OP-C Subjective Start: 10/18/24 07:25 Freq: Status: Active Protocol: Document 11/16/24 13:01 NM (Rec: 11/16/24 13:46 NM [id number]) OP-PT Subjective Patient Comments Patient Comments Pt would ok with being done today. He brought HEP, compliant with HEP. Reports doing well. Planning to go on vacation next week. Continues to have no hip or knee pain. PT-OP-D Balance Start: 10/18/24 07:25 Freq: Status: Active Protocol: Document 10/18/24 13:47 NM (Rec: 10/18/24 14:32 NM [id number]) Balance Tests mCTSIB mCTSIB Position 1 EO, stable: 30 sec mCTSIB Position 2 EC, stable: 30 sec mCTSIB Position 3 EO, unstable: 15 sec mCTSIB Position 4 EC, unstable: 5 sec Single Limb Standing Single Limb- Right 3 sec Single Limb- Left 1 sec Tandem Tandem Standing 10 sec PT-OP-E Functional Tests Start: 10/18/24 13:47 Freq: Status: Active Protocol: Document 10/18/24 13:47 NM (Rec: 10/18/24 14:32 NM [id number]) Functional Tests Five Times Sit to Stand Test Score 17.55 Comments standard chair; unsteady Functional Gait Assessment Score 12/30 PT-OP-F Manual Assessment Start: 10/18/24 07:25 Freq: Status: Active Protocol: Document 10/18/24 13:47 NM (Rec: 10/18/24 14:32 NM [id number]) Manual Assessments Soft Tissue Assessment Soft Tissue Mobility Assessment Increased restrictions of B hamstrings, hip flexors, and calves Joint Mobility Assessment Joint Mobility Assessment Decreased L knee PROM and AROM , empty end feel; more observable passive than active ROM Decreased L hip PROM and AROM with capsular pattern; rotation further limited by knee pain PT-OP-G Mobility & Gait Start: 10/18/24 07:25 Freq: Status: Active Protocol: Document 10/18/24 13:47 NM (Rec: 10/18/24 14:32 NM [id number]) OP Gait Assessment Gait Gait Assistance Required: Standby Assistance Distance (Feet) 150 Assistive Devices Assistive Device Gait Belt Gait Deviations General Gait Pattern Antalgic,Decreased Feet Clearance,Flexed Trunk Factors Limiting Gait Function Factors Limiting Gait Function Decreased Activity Tolerance, Decreased Strength,Limited Range of Motion,Pain,Poor Balance Comments Gait Comments does not use AD Stair Climbing Evaluation Evaluation Level of Assist On Stairs Contact Guard Assistance Technique/Endurance Stair Climbing Direction Ascend and Descend Stair Climbing Technique Step Over Step Number of Steps Climbed 4 Stair Climbing Set # Repetitions (reps) 1 Comments Stair Climbing Comments L lateral hip pain with ascent . Demos poor control with descent, leaning on rails vs use of rails for hand support or balance. Unsteadiness with turning on stairs PT-OP-J Posture/Palpation/Skin Start: 10/18/24 07:25 Freq: Status: Active Protocol: Document 10/18/24 13:47 NM (Rec: 10/18/24 14:32 NM [id number]) Posture Evaluation Position Standing Head/C-Spine Posture Forward Head T-Spine Posture Increased Kyphosis Shoulder Posture (L) Rounded,(R) Rounded Pelvis Posture Posterior Tilted Weight Distribution Weight Shifted Right Hip Posture (L) Externally Rotated,(R) Externally Rotated Knee Posture (L) Genu Varus,(R) Genu Varus Comments Posture Comments increased trunk flexion, maintains B knee flexion in stance and gait Palpation Assessment Location L hip Palpation Details Tenderness to palpation and tightness of TFL, glutes, and deep hip anteriorly L knee Palpation Details Tenderness along both medial and lateral joint lines and compartments. increased restrictions of hamstrings and muscle inserting into pes anserine; quad tightness Limited patellar mobility maintains knee flexion at all times PT-OP-K Range of Motion Start: 10/18/24 07:25 Freq: Status: Active Protocol: Document 11/16/24 13:01 NM (Rec: 11/16/24 13:46 NM [id number]) Hip Goniometric Range of Motion Hip Right Flexion w/Knee Flexed 108 Internal Rotation 28 External Rotation 28 Left Flexion w/Knee Flexed 110 Internal Rotation 28 External Rotation 30 Comments IE: pain at medial knee, limited hip ROM with IR 11/09/24: no pain Knee Goniometric Range of Motion Knee Right Flexion Active (degrees) 118 Extension Active (degrees) 5 Left Flexion Active (degrees) 120 Extension Active (degrees) 2 Comments IE: pain with flex, end range ext 11/09/24: no pain PT-OP-L Special Tests Start: 10/18/24 07:25 Freq: Status: Active Protocol: Document 10/18/24 13:47 NM (Rec: 10/18/24 15:40 NM [id number]) Special Tests Hip Special Tests [facility] Resisted Hip Flexion Test Results - FADIR Test Results + Comments limited at hip, mild pain BILLIE Test Results + Comments knee and hip posteriorly Knee Special Tests Swetha Test Results - Varus Test Results - Valgus Test Results - PT-OP-M Strength Start: 10/18/24 07:25 Freq: Status: Active Protocol: Document 11/16/24 13:01 NM (Rec: 11/16/24 13:46 NM [id number]) Hip Strength Hip Manual Muscle Testing Right Flexion (L2) 4 Good Extension (S1) 4- Good- Abduction 4- Good- Adduction 4- Good- External Rotation 4- Good- Internal Rotation 4- Good- Left Flexion (L2) 4 Good Extension (S1) 4 Good Abduction 4 Good Adduction 4 Good External Rotation 4 Good Internal Rotation 4 Good Comments no pain with resisted testing Knee Strength Knee Manual Muscle Testing Right Flexion (S2) 4 Good Extension (L3) 4 Good Left Flexion (S2) 4+ Good+ Extension (L3) 4+ Good+ Comments no pain with resisted testing PT-OP-Q Treatments Start: 10/18/24 07:25 Freq: Status: Active Protocol: Document 11/16/24 13:01 NM (Rec: 11/16/24 13:46 NM [id number]) Therapeutic Exercises Sitting Exercises sit to stand Sitting Exercise Name 5x STS Equipment Used std chair Reps/Minutes 12.6 sec Standing Exercises hip extension Standing Exercise Name c/ slider- added to HEP /c HO Side bilateral Resistance level 3 band at thighs Equipment Used light 1 hand support on bar for balance Reps/Minutes 10 ea Comments improved form, posture hip flexion Standing Exercise Name slider- added to HEP /C HO Side bilateral Resistance level 2 band at thighs Equipment Used light 1 hand support on bar Reps/Minutes 10 ea Comments improved form and posture hip abduction Standing Exercise Name slider- added to HEP /c HO Side bilateral Resistance level 2 band thighs Equipment Used light 1 hand support on bar for balance Reps/Minutes 10 ea Comments improved form and posture TKE Standing Exercise Name reviewed HEP Side bilateral Resistance level 3 band ties Equipment Used no hand support, Rt foot little back Reps/Minutes 20 ea Comments cued set up; able to safely self don/doff with hand support on rail Neuro Re-Education Treatment Balance Activities FGA Reps/Duration Comments tandem stepping most challenging, along with head turns tandem stepping Details added HEP Reps/Duration 2x 25 ft ea direction Comments 1 finger assist on rail, close SBA head turning Details c/ stepping Surface added HEP Reps/Duration 2x25 ft ea direction Comments 1. horizontal head turns 2. vertical head nods 1 finger assist on rail as needed, close SBA for visual scanning SLS Details HEP review Equipment 1 finger support on bar Reps/Duration 3x10 ea leg Comments and 5 ea leg without UE support eyes closed Details added HEP Reps/Duration 2x25 ft ea direction Comments 1 finger assist on rail as needed, close SBA retro stepping Details added HEP Reps/Duration 2x25 ft ea direction Comments 1 finger assist on rail as needed, close SBA more even step length Self-Care/Home Management Treatment Education Patient Education Fall Risk,Safety Other Education Educated to have area in home that can use as finger support balance, 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 any hazards PT-OP-T Assessment and Plan Start: 10/18/24 07:25 Freq: Status: Active Protocol: Document 11/16/24 13:01 NM (Rec: 11/16/24 13:46 NM [id number]) Physical Therapy Assessment Goals Four Impairment unsteadiness and pain on stairs Prison Goal (LTG) Pt will report <2/10 hip and knee pain while performing at least 8 stairs with or without 1 rail assist and maintain good control with descent to assist with household mobility 11/04/24: initiated step ups on 4 steps fwd and lateral 11/16/24: able to perform 8 stairs without rail assist and good control, no unsteadiness LTG Duration 12/31/24 MET Three Impairment STS transfers challenged, unsteady w/o UE assist, 5x STS 17.55 sec Short Term Goal (STG) Pt will increase L hip and knee strength to at least 4+/5 MMT 11/16/24: 4/5 MMT for all hip and 4+/5 for knee, no pain STG Duration 11/19/24 PROGRESSING Restaurant Front Manager Goal (LTG) Pt will be able to perform 5x STS in 14.8 sec or less without unsteadiness or UE assist, if appropriate, in order to demonstrate improved transfers 11/16/24: 12.6 seconds LTG Duration 12/31/24 MET Two Impairment Functional gait assessment , indicates increased fall risk; SLS limite Short Term Goal (STG) Pt will be able to perform SLS bilaterally for at least 5 seconds in order to demonstrate improved ability to weight shift and maintain stability during gait 11/02/24: 1 sec BLE, no UE support 11/09/24: 5 sec ea leg STG Duration 11/19/24 MET Prison Goal (LTG) Pt will increase FGA score > in order to demonstrate decreased fall risk 11/16/24: LTG Duration 12/31/24 MET One Impairment L knee ROM impaired, limits gait and stairs Prison Goal (LTG) Pt will increase L knee flexion AROM to at least 115 deg and L knee extension AROM to least lacking 4 deg or less in order to improve ability to perform stairs and gait 11/09/24: 115 deg to lacking 3 deg 11/16/24: 120 deg to lacking 2 deg LTG Duration 12/31/24 MET Progress Towards Goals Progress Towards Goals Goals Met Progress Comments progresssing toward strength goals Assessment Summary Assessment Pt tolerated session well. No pain in hip or knee. Demos improvements in balance, FGA currently which is an improvement from evaluation. Pt still has some stumbling at midline with narrow SALVADOR ( tandem stepping) but reduced with 1 finger assist at wall. Added dynamic stepping to HEP to address balance at home with clear education to remove any fall hazards prior to performing exercises and to use 1 finger support for assist as needed. Good carryover for HEP. Able to progress TKE and resistance for 3 way slider; however, needs cueing for set up and correct execution on TKE. Physical Therapy Plan Frequency and Duration Frequency of Treatment 2x/Week Duration of treatment (weeks) 10 Plan of Care Start Date 10/18/24 Plan of Care End Date 12/31/24 Therapeutic Interventions Therapeutic Interventions Balance Training,Canalithic Repositioning,Gait Training, Home Exercise Program,Joint Mobilizations,Manual Therapy, Neuromuscular Re-education, Orthotic/Prosthetic Management ,Patient/Caregiver Education, Self-Care/Home Management, Sensory Integration,Soft Tissue Mobilization,Taping, Therapeutic Activities, Therapeutic Exercises, Vestibular Rehabilitation Other Therapeutic Interventions No modalities Discharge Physical Therapy Discharge Reasons Goals Met Discharge Comments All goals met, progressing toward remaining strength goal . Pt compliant with HEP, issued maintenance program for carryover to continue strengthening and provided with progressions. Pt also issued balance maintenance program with clear education for safety. PT and pt discussed discharge due to all goals met and improved symptom management. Pt and PT in agreement. PT educated pt to return with new referral if notices changes in balance/ strength again and to follow up with PCP for assessment if symptoms return, change, or worsen. Pt verbalizes understanding and will be discharged to maintenance program. Next Visit Focus/Plan Next Note Type Discharge Summary Next Visit Plan discharge from PT
== END 2024-11-18 13:10 | disposition home or self-care (01) ==
LOC: PHYS 13:00
PROVIDERS: Family Provider Family Medicine; PCP Family Medicine; Referring Provider Family Medicine; Visit Provider Family Medicine
DX: M25.552 Pain in left hip (principal); G89.29 Other chronic pain; M25.562 Pain in left knee; R26.89 Other abnormalities of gait and mobility; R53.1 Weakness; M25.652 Stiffness of left hip, not elsewhere classified; M25.662 Stiffness of left knee, not elsewhere classified; R26.81 Unsteadiness on feet
CPT/HCPCS: 97110; 97112; 97140; 97161

== ENCOUNTER → 2025-07-07 15:40 | Outpatient (CLI) | payer MEDICARE, OTHER, SELFPAY ==
[2025-07-07 16:44] LABS: Add Manual Diff / Slide Review NO; Hematocrit 36.8 % (41-53); Hemoglobin 12.6 g/dL (13.5-17.5); Lymphocytes Absolute Auto 1400 /uL (1100-4500); Mean Corpuscular HGB Conc 34.2 % (30-36); Mean Corpuscular Hemoglobin 30.4 PG (26-34); Mean Corpuscular Volume 89.0 fL (80-100); Platelet Count 217 X10^3/uL (150-400)
[2025-07-07 17:05] LABS: Alanine Aminotransferase 19 IU/L (<50); Albumin 4.0 g/dL (3.5-5.0); Albumin Globulin Ratio 1.6 (1.0-2.8); Alkaline Phosphatase 62 U/L (38-126); Blood Urea Nitrogen 24 mg/dL (9-20); Calcium 9.6 mg/dL (8.4-10.2); Carbon Dioxide 30 mmol/L (22-32); Chloride 99 mmol/L (98-107); Cholesterol 214 mg/dL (140-199); Estimated Glomerular Filt Rate > 60 mL/min (>60); Globulin 2.5 g/dL (1.7-4.1); Glucose 113 mg/dL (70-99); HDL Cholesterol 75 mg/dL (40-60); HEMOLYSIS < 15 (0-50); Potassium 4.4 mmol/L (3.4-5.1); Sodium 134 mmol/L (137-145); Total Protein 6.5 g/dL (6.3-8.2); Triglycerides 228 mg/dL (35-150)
[2025-07-07 17:22] LABS: Vitamin D 25 Hydroxy (D3) 63.4 ng/mL (30.0-100.0)
[2025-07-07 17:36] LABS: TSH w/ Reflex to FT4 0.92 uIU/mL (0.47-4.68)
[2025-07-07 18:11] LABS: Folate > 20.0 ng/mL (2.76-20.0); Vitamin B12 846 pg/mL (239-931)
== END ==
PROVIDERS: Family Provider Family Medicine; PCP Family Medicine; Referring Provider Psychiatry & Neurology Neurology; Visit Provider Psychiatry & Neurology Neurology
DX: Z00.00 Encounter for general adult medical examination without abnormal findings (principal); E55.9 Vitamin D deficiency, unspecified; I10 Essential (primary) hypertension; R41.3 Other amnesia; R41.89 Other symptoms and signs involving cognitive functions and awareness; C61 Malignant neoplasm of prostate; C77.5 Secondary and unspecified malignant neoplasm of intrapelvic lymph nodes; C79.51 Secondary malignant neoplasm of bone; E78.5 Hyperlipidemia, unspecified
CPT/HCPCS: 36415; 80053; 80061; 82043; 82172; 82306; 82570; 82607; 82746; 84443; 85025